=== PATIENT | male | born 1960 | race Hispanic/Latino ===

== ENCOUNTER 2018-11-16 21:13 | Emergency (ER) | payer OTHER ==
[~2018-11-16] VITALS: Ht 170.2 cm; Wt 64.9 kg
[2018-11-16 21:50] LABS: BASOPHILS # (AUTO) 0.1 (0.0-0.1); BASOPHILS % 0.4 % (0.0-1.0); EOSINOPHILS # (AUTO) 0.4 (0.0-0.4); EOSINOPHILS % 3.1 % (0.0-6.0); HEMATOCRIT 39.6 % (38.2-49.6); HEMOGLOBIN 14.2 g/dL (14.0-18.0); LYMPHOCYTES # (AUTO) 3.2 (1.0-3.2); LYMPHOCYTES % 26.9 % (18.0-39.1); MEAN CORPUSCULAR HEMOGLOBIN 33.6 pg (28-32); MEAN CORPUSCULAR HGB CONC 35.9 g/dL (31-35); MEAN CORPUSCULAR VOLUME 93.6 fL (81-99); MONOCYTES # (AUTO) 0.9 (0.2-0.8); MONOCYTES % 7.4 % (4.4-11.3); NEUTROPHILS # (AUTO) 7.3 (2.1-6.9); NEUTROPHILS % 61.9 % (38.7-80.0); PLATELET COUNT 373 x10e3/uL (140-360); RED BLOOD COUNT 4.23 x10e6/uL (4.3-5.7); RED CELL DISTRIBUTION WIDTH 12.3 % (11.7-14.4)
[2018-11-16 21:53] LABS: BILIRUBIN,URINE NEGATIVE (NEGATIVE); CLARITY,URINE CLEAR (CLEAR); COLOR,URINE YELLOW (YELLOW); KETONES,URINE 1+ (NEGATIVE); LEUKOCYTE ESTERASE ,URINE NEGATIVE (NEGATIVE); NITRITE,URINE NEGATIVE (NEGATIVE); PROTEIN,URINE DIPSTICK TRACE (NEGATIVE); URINE UROBILINOGEN 1 mg/dL (0.2 - 1)
[2018-11-16 21:55] LABS: INR 0.95; PROTHROMBIN TIME 13.2 seconds (11.9-14.5)
[2018-11-16 21:56] LABS: PARTIAL THROMBOPLASTIN TIME 35.2 seconds (23.8-35.5)
[2018-11-16 22:04] LABS: ALANINE AMINOTRANSFERASE 19 IU/L (0-55); ALBUMIN 4.2 g/dL (3.5-5.0); ALBUMIN/GLOBULIN RATIO 1.2 (0.8-2.0); ALKALINE PHOSPHATASE 84 IU/L (40-150); ANION GAP 16.9 mmol/L (8-16); BLOOD UREA NITROGEN 14 mg/dL (7-26); BUN/CREATININE RATIO 17 (6-25); CALCIUM 9.9 mg/dL (8.4-10.2); CARBON DIOXIDE 20 mmol/L (22-29); CHLORIDE 95 mmol/L (98-107); CREATININE, SERUM 0.81 mg/dL (0.72-1.25); EST GLOMERULAR FILTRATION RATE > 60 ML/MIN (60-); GLUCOSE 87 mg/dL (74-118); POTASSIUM 3.9 mmol/L (3.5-5.1); SODIUM 128 mmol/L (136-145)
[2018-11-16 22:07] LABS: BACTERIA,URINE MODERATE /HPF; EPITHELIAL CELLS,URINE RARE /LPF; WBC,URINE (MAN) 0-5 /HPF (0-5)
--- NOTE | 2018-11-16 22:39 | Diagnostic Imaging Report ---
EXAMINATION: CHEST 2 VIEWS INDICATION: Weakness, low back pain for one week ^BRONCHITIS ^[id number] ^2210 ^Y COMPARISON: None FINDINGS: PA and lateral views TUBES and LINES: None. LUNGS: Lungs are well inflated with flattening of the diaphragms suggestive of small airways disease. Spiculated right upper lobe mass measures 3.4 x 3.6 cm with central cavitation. No air-fluid level. Left lung is clear. PLEURA: No pleural effusion or pneumothorax. HEART AND MEDIASTINUM: The cardiomediastinal silhouette is unremarkable.. BONES AND SOFT TISSUES: No focal osseous lesions. Soft tissues are unremarkable. UPPER ABDOMEN: No free air under the diaphragm. IMPRESSION: Spiculated cavitary mass in the right upper lobe. This is suggestive of a neoplastic process or tuberculosis infection. Signed by: Dr. Kateryna Smith MD on 11/16/2018 10:35 PM
--- NOTE | 2018-11-16 22:39 | Diagnostic Imaging Report ---
CT BRAIN WO HISTORY: TIA COMPARISON: None. TECHNIQUE: Noncontrast axial scans were obtained from skull base to the vertex. Coronal and sagittal reconstructions obtained from the axial data. One or more of the following dose reduction techniques were used: Automated exposure control, adjustment of the mA and/or kV according to patient size, and/or utilization of iterative reconstruction technique. DISCUSSION: Scalp/Skull: Unremarkable. Brain sulci: Appropriate for patient's age. Ventricles: The body of the right lateral ventricle is slightly effaced. Otherwise, unremarkable. Extra-axial spaces: No masses or fluid collections. Parenchyma: Approximately 1.9 cm peripherally isodense, centrally hypodense mass (relative to brain parenchyma) centered in the right thalamus is associated with prominent local vasogenic edema. The edema extends into the right temporal stem and right midbrain. Similar 2.4 cm juxtacortical mass along the left superior frontal sulcus is also associated with prominent local vasogenic edema. Additional focal areas of vasogenic edema are seen in the right posterior inferior frontal gyrus (pars opercularis), right precentral gyrus, and left mesial temporal lobe. Mass effect is local without significant brain herniation. Otherwise, no acute hyperdense hemorrhage, or large vascular territory acute infarct. Dural sinuses: No abnormal densities. Sellar/Suprasellar region: Intact. Skull base: Intact. Incidental findings: Mild carotid siphon calcifications are present. IMPRESSION: 1. 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 Additional, associated areas of focal vasogenic edema in the right frontal lobe and left mesial temporal lobe. Differential considerations include metastatic disease in the appropriate clinical setting or multifocal infectious process (i.e. septic emboli with abscesses). 2. Mass effect is local without significant brain herniation. Further evaluation with brain MRI (without and with contrast) is recommended. Signed by: Dr. Hair Parham M.D. on 11/16/2018 10:35 PM
[2018-11-16] MEDS ORDERED: DEXAMETHASONE SOD PHOS 10 MG/1 ML VIAL ONE (22:42)
[2018-11-16] MEDS ORDERED: DEXAMETHASONE SOD PHOS 10 MG/1 ML VIAL IV STA (22:50)
--- NOTE | 2018-11-16 22:50 | NUR ---
TRANSFER INITIATED TO COUNT INCLUDES THE [facility]
[2018-11-16] MEDS ORDERED: DICLOFENAC SODI75 MG PO (22:52)
[2018-11-16] MEDS ORDERED: ATORVASTATIN CA20 MG PO (22:52)
[2018-11-16] MEDS ORDERED: FOLIC ACID1 MG PO (22:52)
[2018-11-16] MEDS ORDERED: IRBESARTAN300 MG PO (22:52)
[2018-11-16] MEDS ORDERED: SUCRALFATE1 GM PO (22:52)
[2018-11-16] MEDS ORDERED: HYDROCHLOROTHIA25 MG PO (22:53)
[2018-11-16] MEDS ORDERED: ASPIR 8181 MG PO (22:53)
[2018-11-16] MEDS ORDERED: ESIDRIX25 MG PO (22:56)
[2018-11-16 23:35] VITALS: BP 133/81
== END 2018-11-17 00:25 | disposition other institution (70) ==
LOC: ER 21:13
DX: R22.0 Localized swelling, mass and lump, head (principal); C34.11 Malignant neoplasm of upper lobe, right bronchus or lung; K52.9 Noninfective gastroenteritis and colitis, unspecified; E87.1 Hypo-osmolality and hyponatremia; M54.5 Low back pain; I10 Essential (primary) hypertension; F17.210 Nicotine dependence, cigarettes, uncomplicated
CPT/HCPCS: 36415; 70450; 71046; 80053; 81001; 85025; 85610; 85730; 99284; J1100

== ENCOUNTER 2018-12-06 11:01 | Emergency (ER) | payer OTHER ==
[~2018-12-06] VITALS: Ht 170.2 cm; Wt 64.9 kg
[~2018-12-06 11:01] MED LIST: ASPIR 8181 MG PO; ATORVASTATIN CA20 MG PO; DICLOFENAC SODI75 MG PO; ESIDRIX25 MG PO; FOLIC ACID1 MG PO; HYDROCHLOROTHIA25 MG PO; IRBESARTAN300 MG PO; SUCRALFATE1 GM PO
--- OUTSIDE RECORDS SUMMARY | 2018-12-06 11:04 | XMS REPORT | Clinical Summary ---
Author Author PHYLICIA [facility] Address Unknown Phone Unavailable Care Team Providers Care Clerk General Name Role Phone Zach Preston PCP Allergies No Known Allergies Medications End Date Status Medication Sig Dispensed Refills Start Date Active irbesartan (AVAPRO) 300 Take 300 mg 0 MG tablet by mouth daily. Active omeprazole (PRILOSEC) 20 Take 20 mg by 0 MG capsule mouth daily. Active folic acid (FOLVITE) 800 Take 400 mcg 0 MCG tablet by mouth daily. Active atorvastatin (LIPITOR) 20 Take 20 mg by 0 MG tablet mouth daily. Active aspirin 81 MG EC tablet Take 81 mg by 0 mouth daily. Active multivit-min/FA/lycopen/l Take 1 tablet 0 utein (CENTRUM SILVER MEN by mouth ORAL) daily. 12/12/2018 Active baclofen 5 mg Tab Take 5 mg by 42 tablet 0 mouth 3 9 (three) times daily as needed (hiccups) for up to 14 days. 12/19/2018 Active dexamethasone (DECADRON) Take 1 tablet 84 tablet 0 4 MG tablet (4 mg total) 9 by mouth every 6 (six) hours for 21 days. 12/29/2018 Active pantoprazole (PROTONIX) Take 1 tablet 30 tablet 0 40 MG tablet (40 mg total) 9 by mouth every morning before breakfast for 30 days. Active Problems Problem Noted Date Brain mass 11/17/2018 Encounters Care Team Description Date Type Specialty Jorge King MD Arrived 12/02/2018 Procedure visit Radiation Oncology Fiordaliza Kemp CRNA 11/26/2018 Anesthesia Event Leida Mcintosh MD BRONCHOSCOPY,TRANSBRONCHIAL NEEDLE ASPIRATION BIOPSY 11/26/2018 Surgery Sunday [place], MURTAZA 11/22/2018 Anesthesia Event Leida Mcintosh MD BRONCHOSCOPY,ENDOBRONCHIAL ULTRASOUND (EBUS) TRANSTRACH/ TRANSBRONCH SAMPLING 11/22/2018 Surgery Trung Duvall, MURTAZA 11/18/2018 Anesthesia Event Virtual, Surgeon PROCEDURE DONE OUTSIDE OR 11/18/2018 Surgery Jonny Gottlieb MD Bhattarai, Alok, MD Tirukkovalluri, Srilakshmi, MD Adio, Julio Martinez MD Brain mass; Cerebral edema (HCC); Encephalopathy; Lung mass; Centrilobular emphysema (HCC); Smoker; Non-small cell lung cancer with metastasis (HCC); Non-small cell lung cancer, unspecified laterality (HCC); Goals of care, counseling/discussion 11/17/2018 [facility] General Internal Medicine - Encounter 11/28/2018 11/17/2018 Travel after 12/05/2017 Social History Date Tobacco Use Types Packs/Day Years Used Current Every Day Smoker Cigarettes 2 Smokeless Tobacco: Never Used Alcohol Use Drinks/Week oz/Week Comments Yes 8 Cans of 4.8 beer Alcohol Habits Answer Date Recorded How often do you have a drink containing alcohol? 4 or more times a week 11/17/2018 How many drinks containing alcohol do you have on 7 to 9 11/17/2018 a typical day when you are drinking? How often do you have six or more drinks on one Daily or almost daily 11/17/2018 occasion? Sex Assigned at Date Recorded Not on file Industry Job Start Date Occupation Not on file Not on file Not on file Travel End Travel History Travel Start No recent travel history available. Last Filed Vital Signs Time Taken Vital Sign Reading 11/28/2018 4:14 PM CDT Blood Pressure 115/69 11/28/2018 4:14 PM CDT Pulse 61 11/28/2018 4:14 PM CDT Temperature 36.3 C (97.3 F) 11/28/2018 4:14 PM CDT Respiratory Rate 18 11/28/2018 4:14 PM CDT Oxygen Saturation 96% - Inhaled Oxygen - Concentration 11/17/2018 2:00 AM CDT Weight 62 kg (136 lb 11 oz) 11/17/2018 2:00 AM CDT Height 170 cm (5' 6.93") 11/17/2018 2:00 AM CDT Body Mass Index 21.45 Plan of Treatment Care Team Description Date Type Specialty Jorge King MD [address], [place] [id number] 12/16/2018 Procedure visit Radiation Oncology Jorge King MD [address] [place] [address] 01/16/2019 Procedure visit Radiation Oncology Procedures Comments Procedure Name Priority Date/Time Associated Diagnosis RHYTHM STRIP - SCAN 11/29/2018 11:11 AM CDT POCT-GLUCOSE METER Routine 11/28/2018 1:18 PM CDT POCT-GLUCOSE METER Routine 11/28/2018 7:53 AM CDT CBC W/PLT COUNT & AUTO Routine 11/28/2018 DIFFERENTIAL 5:45 AM CDT COCCIDIOIDES ANTIBODIES Routine 11/28/2018 5:45 AM CDT BASIC METABOLIC PANEL (7) STAT 11/28/2018 5:45 AM CDT CBC W/PLT COUNT & AUTO Routine 11/28/2018 DIFFERENTIAL 5:45 AM CDT POCT-GLUCOSE METER Routine 11/27/2018 9:00 PM CDT TRANSFUSION SERVICE 11/27/2018 REPORT - SCAN 5:55 PM CDT POCT-GLUCOSE METER Routine 11/27/2018 5:34 PM CDT POCT-GLUCOSE METER Routine 11/27/2018 12:00 PM CDT POCT-GLUCOSE METER Routine 11/27/2018 8:34 AM CDT BASIC METABOLIC PANEL (7) STAT 11/27/2018 6:18 AM CDT CBC W/PLT COUNT & AUTO Routine 11/27/2018 DIFFERENTIAL 6:17 AM CDT CBC W/PLT COUNT & AUTO Routine 11/27/2018 DIFFERENTIAL 6:17 AM CDT POCT-GLUCOSE METER Routine 11/26/2018 9:24 PM CDT POCT-GLUCOSE METER Routine 11/26/2018 3:59 PM CDT XR CHEST 1 VIEW STAT 11/26/2018 PORTABLE/BEDSIDE 2:44 PM CDT BLASTOMYCES ANTIBODY Routine 11/26/2018 2:21 PM CDT ASPERGILLUS GALACTOMANNAN Routine 11/26/2018 ANTIGEN 2:21 PM CDT POCT-GLUCOSE METER Routine 11/26/2018 2:06 PM CDT REPORT OF PROCEDURE - 11/26/2018 ENDOSCOPY URL 12:37 PM CDT CYTOLOGY REQUEST Routine 11/26/2018 12:29 PM CDT CYTOLOGY AP Routine 11/26/2018 12:29 PM CDT AFB CULTURE + SMEAR Routine 11/26/2018 12:28 PM CDT SURGICALLY OBTAINED Routine 11/26/2018 CULTURE + GRAM STAIN 12:28 PM CDT FUNGUS CULTURE + SMEAR Routine 11/26/2018 12:28 PM CDT FINE NEEDLE ASPIRATE Routine 11/26/2018 (FNA) REQUEST 12:28 PM CDT FINE NEEDLE ASPIRATION BY AP Routine 11/26/2018 CLINICIAN 12:28 PM CDT FL TEXTILE MACHINE OPERATOR IN OR 30 Routine 11/26/2018 MINUTE INCREMENTS 12:28 PM CDT AFB CULTURE + SMEAR Routine 11/26/2018 12:27 PM CDT SURGICALLY OBTAINED Routine 11/26/2018 CULTURE + GRAM STAIN 12:27 PM CDT FUNGUS CULTURE + SMEAR Routine 11/26/2018 12:27 PM CDT TISSUE EXAM AP Routine 11/26/2018 12:27 PM CDT BRONCHOSCOPY,ENDOBRONCHIA 11/26/2018 Lung mass L ULTRASOUND (EBUS) 10:58 AM CDT DIAGNOSTIC/ THERAPEUTIC Special Needs REQ: 99 12 INCH C-ARM BRONCHOSCOPY,SUPER D 11/26/2018 Lung mass 10:58 AM CDT Special Needs REQ: 99 12 INCH C-ARM BRONCHOSCOPY,BRONCHIAL 11/26/2018 Lung mass ALVEOLAR LAVAGE 10:58 AM CDT Special Needs REQ: 99 12 INCH C-ARM BRONCHOSCOPY,TRANSBRONCHI 11/26/2018 Lung mass AL LUNG BIOPSY 10:58 AM CDT Special Needs REQ: 99 12 INCH C-ARM BRONCHOSCOPY,TRANSBRONCHI 11/26/2018 Lung mass AL NEEDLE ASPIRATION 10:58 AM CDT BIOPSY Special Needs REQ: 99 12 INCH C-ARM MISCELLANEOUS LAB ORDER Routine 11/26/2018 8:30 AM CDT POCT-GLUCOSE METER Routine 11/26/2018 8:22 AM CDT ABORH, MANUAL STAT 11/26/2018 5:59 AM CDT CBC W/PLT COUNT & AUTO STAT 11/26/2018 DIFFERENTIAL 5:13 AM CDT TYPE AND SCREEN, Routine 11/26/2018 AUTOMATED 5:13 AM CDT APTT STAT 11/26/2018 5:13 AM CDT PROTHROMBIN TIME/INR STAT 11/26/2018 5:13 AM CDT CBC W/PLT COUNT & AUTO STAT 11/26/2018 DIFFERENTIAL 5:13 AM CDT COMPREHENSIVE METABOLIC STAT 11/26/2018 PANEL 5:13 AM CDT BASIC METABOLIC PANEL (7) STAT 11/26/2018 5:13 AM CDT POCT-GLUCOSE METER Routine 11/25/2018 9:36 PM CDT POCT-GLUCOSE METER Routine 11/25/2018 5:45 PM CDT POCT-GLUCOSE METER Routine 11/25/2018 11:48 AM CDT POCT-GLUCOSE METER Routine 11/25/2018 8:33 AM CDT CBC W/PLT COUNT & AUTO Routine 11/25/2018 DIFFERENTIAL 5:34 AM CDT BASIC METABOLIC PANEL (7) STAT 11/25/2018 5:34 AM CDT CBC W/PLT COUNT & AUTO Routine 11/25/2018 DIFFERENTIAL 5:34 AM CDT POCT-GLUCOSE METER Routine 11/24/2018 8:29 PM CDT POCT-GLUCOSE METER Routine 11/24/2018 3:13 PM CDT POCT-GLUCOSE METER Routine 11/24/2018 9:08 AM CDT CBC W/PLT COUNT & AUTO Routine 11/24/2018 DIFFERENTIAL 5:54 AM CDT BASIC METABOLIC PANEL (7) STAT 11/24/2018 5:54 AM CDT CBC W/PLT COUNT & AUTO Routine 11/24/2018 DIFFERENTIAL 5:54 AM CDT POCT-GLUCOSE METER Routine 11/23/2018 9:09 PM CDT POCT-GLUCOSE METER Routine 11/23/2018 5:14 PM CDT CBC W/PLT COUNT & AUTO Routine 11/23/2018 DIFFERENTIAL 2:36 PM CDT BASIC METABOLIC PANEL (7) STAT 11/23/2018 2:36 PM CDT CBC W/PLT COUNT & AUTO Routine 11/23/2018 DIFFERENTIAL 2:36 PM CDT POCT-GLUCOSE METER Routine 11/23/2018 11:49 AM CDT POCT-GLUCOSE METER Routine 11/23/2018 8:02 AM CDT POCT-GLUCOSE METER Routine 11/22/2018 9:[address] CHEST WITHOUT IV BRANT 11/22/2018 CONTRAST 6:03 PM CDT SPIN/CONCENTRATION CHARGE Routine 11/22/2018 12:58 PM CDT AFB CULTURE + SMEAR Routine 11/22/2018 12:58 PM CDT REPORT OF PROCEDURE - 11/22/2018 ENDOSCOPY URL 12:53 PM CDT POCT-GLUCOSE METER Routine 11/22/2018 10:24 AM CDT EBUS FNA REQUEST Routine 11/22/2018 8:20 AM CDT FINE NEEDLE ASPIRATE BY AP Routine 11/22/2018 EBUS 8:20 AM CDT AFB CULTURE + SMEAR Routine 11/22/2018 8:04 AM CDT BRONCHIAL CULTURE + GRAM Routine 11/22/2018 STAIN 8:04 AM CDT FUNGUS CULTURE + SMEAR Routine 11/22/2018 8:04 AM CDT CYTOLOGY REQUEST Routine 11/22/2018 8:04 AM CDT SPIN/CONCENTRATION CHARGE Routine 11/22/2018 8:04 AM CDT CYTOLOGY AP Routine 11/22/2018 8:04 AM CDT EBUS FNA REQUEST Routine 11/22/2018 7:49 AM CDT FINE NEEDLE ASPIRATE BY AP Routine 11/22/2018 EBUS 7:49 AM CDT BRONCHOSCOPY,BRONCHIAL 11/22/2018 Lung mass ALVEOLAR LAVAGE 6:10 AM CDT Special Needs REQ 7:00AM IN ENDO BRONCHOSCOPY,ENDOBRONCHIA 11/22/2018 Lung mass L ULTRASOUND (EBUS) 6:10 AM CDT TRANSTRACH/ TRANSBRONCH SAMPLING Special Needs REQ 7:00AM IN ENDO POCT-GLUCOSE METER Routine 11/21/2018 5:36 PM CDT POCT-GLUCOSE METER Routine 11/21/2018 12:26 PM CDT POCT-GLUCOSE METER Routine 11/21/2018 9:11 AM CDT CBC W/PLT COUNT & AUTO Routine 11/21/2018 DIFFERENTIAL 4:28 AM CDT BASIC METABOLIC PANEL (7) Routine 11/21/2018 4:28 AM CDT CBC W/PLT COUNT & AUTO Routine 11/21/2018 DIFFERENTIAL 4:28 AM CDT POCT-GLUCOSE METER Routine 11/20/2018 9:43 PM CDT POCT-GLUCOSE METER Routine 11/20/2018 5:15 PM CDT POCT-GLUCOSE METER Routine 11/20/2018 11:36 AM CDT POCT-GLUCOSE METER Routine 11/20/2018 8:03 AM CDT CBC W/PLT COUNT & AUTO Routine 11/20/2018 DIFFERENTIAL 4:55 AM CDT PHOSPHORUS Routine 11/20/2018 4:55 AM CDT MAGNESIUM Routine 11/20/2018 4:55 AM CDT PT/APTT Routine 11/20/2018 4:55 AM CDT BASIC METABOLIC PANEL (7) Routine 11/20/2018 4:55 AM CDT CBC W/PLT COUNT & AUTO Routine 11/20/2018 DIFFERENTIAL 4:55 AM CDT SPIN/CONCENTRATION CHARGE Routine 11/20/2018 1:10 AM CDT AFB CULTURE + SMEAR Routine 11/20/2018 1:10 AM CDT POCT-GLUCOSE METER Routine 11/19/2018 9:55 PM CDT POCT-GLUCOSE METER Routine 11/19/2018 5:32 PM CDT NM BONE SCAN WHOLE BODY Routine 11/19/2018 4:43 PM CDT POCT-GLUCOSE METER Routine 11/19/2018 11:08 AM CDT POCT-GLUCOSE METER Routine 11/19/2018 6:08 AM CDT T SPOT TB Routine 11/19/2018 3:53 AM CDT CBC W/PLT COUNT & AUTO Routine 11/19/2018 DIFFERENTIAL 3:52 AM CDT PHOSPHORUS Routine 11/19/2018 3:52 AM CDT MAGNESIUM Routine 11/19/2018 3:52 AM CDT BASIC METABOLIC PANEL (7) Routine 11/19/2018 3:52 AM CDT CBC W/PLT COUNT & AUTO Routine 11/19/2018 DIFFERENTIAL 3:52 AM CDT HISTOPLASMA ANTIGEN, Routine 11/18/2018 URINE 10:30 PM CDT POCT-GLUCOSE METER Routine 11/18/2018 10:17 PM CDT HISTOPLASMA AB BY Routine 11/18/2018 COMPLEMENT FIXATION 6:37 PM CDT HIV-1 ANTIGEN WITH Routine 11/18/2018 HIV-1/2 ANTIBODY 6:37 PM CDT POCT-GLUCOSE METER Routine 11/18/2018 6:35 PM CDT MR BRAIN WITHOUT & WITH Routine 11/18/2018 IV CONTRAST 5:55 PM CDT PROCEDURE DONE OUTSIDE OR 11/18/2018 Neoplasm of head 3:00 PM CDT POCT-GLUCOSE METER Routine 11/18/2018 12:03 PM CDT EEG AWAKE AND DROWSY Routine 11/18/2018 8:54 AM CDT POCT-GLUCOSE METER Routine 11/18/2018 6:34 AM CDT CBC W/PLT COUNT & AUTO Routine 11/18/2018 DIFFERENTIAL 3:29 AM CDT BASIC METABOLIC PANEL (7) Routine 11/18/2018 3:29 AM CDT CBC W/PLT COUNT & AUTO Routine 11/18/2018 DIFFERENTIAL 3:29 AM CDT POCT-GLUCOSE METER Routine 11/17/2018 10:12 PM CDT POCT-GLUCOSE METER Routine 11/17/2018 4:[address] ABDOMEN/PELVIS WITH IV Routine 11/17/2018 CONTRAST 3:[address] CHEST WITH IV CONTRAST Routine 11/17/2018 3:01 PM CDT POCT-GLUCOSE METER Routine 11/17/2018 12:30 PM CDT CBC W/PLT COUNT & AUTO Routine 11/17/2018 DIFFERENTIAL 4:06 AM CDT PHOSPHORUS Routine 11/17/2018 4:06 AM CDT MAGNESIUM Routine 11/17/2018 4:06 AM CDT HEPATIC FUNCTION PANEL Routine 11/17/2018 4:06 AM CDT BASIC METABOLIC PANEL (7) Routine 11/17/2018 4:06 AM CDT CBC W/PLT COUNT & AUTO Routine 11/17/2018 DIFFERENTIAL 4:06 AM CDT TROPONIN I Routine 11/17/2018 4:06 AM CDT after 12/05/2017 Results * RHYTHM STRIP - SCAN (11/29/2018 11:11 AM CDT) Narrative Performed At * POC-Glucose meter (11/28/2018 1:18 PM CDT) Only the most recent of 41 results within the time period is included. POC-Glucose Meter 105Comment: TESTED AT [facility] 70 - 110 mg/dL [facility] [address] [facility] [address] [facility] Specimen Blood Performing Organization Address City/State/Zipcode Phone Number [facility] [address] [place], [place] [phone] [facility] * CBC with platelet count + automated diff (11/28/2018 5:45 AM CDT) Only the most recent of 11 results within the time period is included. WBC 12.6 (H) 3.5 - 10.5 K/L [facility] RBC 3.66 (L) 4.63 - 6.08 M/L [facility] Hemoglobin 12.1 (L) 13.7 - 17.5 GM/DL [facility] Hematocrit 35.5 (L) 40.1 - 51.0 % [facility] MCV 97.0 (H) 79.0 - 92.2 fL [facility] MCH 33.1 (H) 25.7 - 32.2 pg [facility] MCHC 34.1 32.3 - 36.5 GM/DL [facility] RDW 12.2 11.6 - 14.4 % [facility] Platelets 262 150 - 450 K/CU MM [facility] MPV 9.0 (L) 9.4 - 12.4 fL [facility] nRBC 0 0 - 0 /100 WBC [facility] % Neutros 86 % [facility] % Lymphs 9 % [facility] % Monos 4 % [facility] % Eos 0 % [facility] % Baso 0 % [facility] # Neutros 10.84 (H) 1.78 - 5.38 K/L [facility] # Lymphs 1.13 (L) 1.32 - 3.57 K/L [facility] # Monos 0.48 0.30 - 0.82 K/L [facility] # Eos 0.00 (L) 0.04 - 0.54 K/L [facility] # Baso 0.01 0.01 - 0.08 K/L [facility] Immature 1 0 - 1 % [facility] Granulocytes-[facility] Specimen Blood Performing Organization Address City/[facility] Cent[facility]ode Phone Number [facility] [address] [place] [address] [facility] * Coccidioides antibodies (11/28/2018 5:45 AM CDT) Coccidioides Ab,Id NEGATIVE [facility] Comment: INCORPORATED REFERENCE RANGE:NEGATIVE INTERPRETIVE CRITERIA: NEGATIVE:Antibody Not Detected POSITIVE:Antibody Detected The immunodiffusion (ID) procedure correlates both in sensitivity and clinical utility with the CF test. The ID test, which detects IgG directed to the "F" antigen, becomes positive within 4 weeks after infection and remains positive throughout clinically active disease. It is most useful in confirming the specificity of low CF titers, where line(s) of identity are formed with reference antisera. Positive ID reactions are diagnostic for coccidioidomycosis and usually indicate active or recent disease and remain detectable for up to 1 year thereafter. Specimen Blood Narrative Performed At Performing Lab [facility] *[facility] [employer] [facility] [address] [place] [address] Vlad Cazares MD Performing Organization Address City/State/Zipcode Phone Number [facility], [address] [facility] [address] * Basic Metabolic Panel (11/28/2018 5:45 AM CDT) Only the most recent of 11 results within the time period is included. Sodium 132 (L) 136 - 145 meq/L [facility] Potassium 3.8 3.5 - 5.1 meq/L [facility] Chloride 102 98 - 107 meq/L [facility] CO2 23 22 - 29 meq/L [facility] BUN 16 7 - 21 mg/dL [facility] Creatinine 0.62 0.57 - 1.25 mg/dL [facility] Glucose 125 (H) 70 - 105 mg/dL [facility] Calcium 8.4 8.4 - 10.2 mg/dL [facility] EGFR Comment: INSUFFICIENT CLINICAL mL/min/1.73 sq m [facility] DATA TO CALCULATE ESTIMATED [facility] GFR. Specimen Blood Performing Organization Address City/State/Zipcode Phone Number [facility] [address] [place] [address] [facility] * TRANSFUSION SERVICE REPORT - SCAN (11/27/2018 5:55 PM CDT) Narrative Performed At * XR chest 1 view portable / bedside (11/26/2018 2:44 PM CDT) Specimen Narrative Performed At FINAL REPORT [facility] TECHNIQUE: Frontal chest radiograph dated 11/26/2018. CLINICAL HISTORY: Status post right upper lobe transbronchial biopsy COMPARISON STUDY: Chest CT dated 11/22/2018 IMPRESSION: Right upper lobe mass is again visualized. Lungs are otherwise clear. No pleural effusion or pneumothorax. Cardiomediastinal silhouette is normal in size. No pulmonary edema. Bones are osteopenic. Signed: Daniel Roger MD Report Verified Date/Time:11/26/2018 15:04:06 Reading Location: [facility] Radiology Reading Room Procedure Note Interface, External Ris In - 11/26/2018 3:06 PM CDT FINAL REPORT TECHNIQUE: Frontal chest radiograph dated 11/26/2018. CLINICAL HISTORY: Status post right upper lobe transbronchial biopsy COMPARISON STUDY: Chest CT dated 11/22/2018 IMPRESSION: Right upper lobe mass is again visualized. Lungs are otherwise clear. No pleural effusion or pneumothorax. Cardiomediastinal silhouette is normal in size. No pulmonary edema. Bones are osteopenic. Signed: Daniel Roger MD Report Verified Date/Time: 11/26/2018 15:04:06 Reading Location: [facility] Radiology Reading Room Performing Organization Address City/[facility] Centercode Phone Number [facility] * Blastomyces antibody (11/26/2018 2:21 PM CDT) Blastomyces Ab,Id NEGATIVE [facility] Comment: INCORPORATED REFERENCE RANGE: NEGATIVE INTERPRETIVE CRITERIA: NEGATIVE: Antibody Not Detected POSITIVE: Antibody Detected A positive result is diagnostic of active or recent blastomycosis and is found in approximately 80% of proven cases of blastomycosis. Specimen Blood Narrative Performed At Performing Lab [facility] *[facility] [employer] [facility] [id number] [place] [id number] Vlad Cazares MD Performing Organization Address [facility] Centercola Phone Number [facility] [place], [address] [facility] [address] * Aspergillus galactomannan antigen (11/26/2018 2:21 PM CDT) Aspergillus Index Value <0.50 [facility] Aspergillus Antigen NOT DETECTED [facility] Comment: INCORPORATED REFERENCE RANGE: <0.50, NOT DETECTED A negative result does not exclude invasive aspergillosis. Follow-up testing may be indicated for high-risk patients. Specimen Blood Narrative Performed At Performing Lab [facility] *[employer] [facility] [address] [place] [address] Vlad Cazares MD Performing Organization Address [facility] Centercode Phone Number [facility] [place], [address] [facility] [address] * REPORT OF PROCEDURE - ENDOSCOPY URL (11/26/2018 12:37 PM CDT) Narrative Performed At * CYTOLOGY REQUEST (11/26/2018 12:29 PM CDT) Only the most recent of 2 results within the time period is included. Cytology See Separate Report [facility] Specimen BAL Performing Organization Address City/State/Zipcode Phone Number [address] [address] [facility] * Cytology (11/26/2018 12:29 PM CDT) Only the most recent of 2 results within the time period is included. Case Report Medical Cytology [facility] Report [facility] Case: [id number] Authorizing Provider:Leida Mcintosh MDCollected: 11/26/2018 1229 [facility] Received: 11/26/2018 1305 SERVICES Pathologist: Ubaldo Ortiz MD Specimen:Lung, Right Upper Lobe, BAL DIAGNOSIS LUNG, RIGHT UPPER LOBE, BAL [facility] (CYTOSPINS): [facility] - NON SMALL CELL CARCINOMA, POORLY DIFFERENTIATED, WITH DEGENERATIVE FEATURES Signing Pathologist Direct Phone Line: [phone] COMMENT Please also see surgical [facility] pathology report [id number] and [facility] cytopathology report [id number]. CPT Code(s) 559[address] [facility] CLINICAL DATA Lung mass [facility] SPECIMEN SOURCE LUNG, RIGHT UPPER LOBE BAL [facility] GROSS DESCRIPTION Prepared 4 cytospins from 15 [facility] ml blood-tinged fluid [facility] Collected: [id number] Received: [id number] MICROSCOPIC DESCRIPTION Few degenerating atypical [facility] cells consistent with [facility] non-small cell carcinoma are present. Benign bronchial epithelial cells and macrophages are present in background. STATEMENT OF ADEQUACY Satisfactory [facility] Gross assessment was [facility] performed at [place], Department of [facility] Pathology, [address] [place] [address], Technical component was [facility] performed at [place], Department of [facility] Pathology, [address] [place] [address], Professional component [facility] was performed at Center, Department of [facility] Pathology, [address] [place] [address], [place] [address], Specimen BAL Narrative Performed At Performing Organization Address City/State/Zipcode Phone Number [facility] [address] [place] [phone] [facility] * Surgically obtained culture + gram stain (11/26/2018 12:28 PM CDT) Only the most recent of 2 results within the time period is included. Result <1+ Viridans Streptococcus (A) [facility] Gram Stain Result No WBCs [facility] Gram Stain Result No organisms seen [facility] Specimen Fine Needle Aspirate Performing Organization Address City/[facility] Centercode Phone Number [address] [address] [facility] * FINE NEEDLE ASPIRATE (FNA) REQUEST (11/26/2018 12:28 PM CDT) Cytology See Separate Report [facility] Specimen Fine Needle Aspirate Performing Organization Address City/[facility] Centercode Phone Number [facility] [address] [place] [address] [phone] [facility] * [place] trading manager in or 30 minute increments (11/26/2018 12:28 PM CDT) Specimen Narrative Performed At FLUOROSCOPIC UNIT UTILIZED-NO INTERPRETATION REQUESTED. [facility] Procedure Note Interface, External Ris In - 12/02/2018 5:13 PM CDT FLUOROSCOPIC UNIT UTILIZED-NO INTERPRETATION REQUESTED. Performing Organization Address City/State/[facility] [place] [facility] Centercode Phone Number [facility] * Fine Needle Aspirate by Clinician (11/26/2018 12:28 PM CDT) Case Report Medical Cytology [facility] Case: [id number] Authorizing Provider:Leida Mcintosh MDCollected: 11/26/2018 1228 [facility] Received: 11/26/2018 1305 SERVICES Pathologist: Ubaldo Ortiz MD Specimen:Lung, Right Upper Lobe DIAGNOSIS LUNG, RIGHT UPPER LOBE, FNA BY [facility] CLINICIAN (CYTOSPINS AND CELL [facility] BLOCK OF ASPIRATE): - NON SMALL CELL CARCINOMA, POORLY DIFFERENTIATED Signing Pathologist Direct Phone Line: [phone] COMMENT Please also see surgical [facility] pathology report [id number] and [facility] cytopathology report [id number]. CPT Code(s) 72034, 95467 [facility] CLINICAL DATA Lung mass [facility] SPECIMEN SOURCE LUNG, RIGHT UPPER LOBE FNA [facility] GROSS DESCRIPTION Prepared cell block(A2) and 2 [facility] cytospins from 42 ml cytorich [facility] red fixative sample Collected: [id number] Received: [id number] SPECIAL STUDIES The interpretation of this [facility] case included the use of [facility] immunohistochemistry or special stains. Control Slides Examined: In-house known positive controls were evaluated along with the test tissue. These control slides run alongside of the patients sample show appropriate staining. Internal positive and negative controls when available are evaluated Immunohistochemistry technical testing was performed at [facility], Pathology Laboratory where it was developed and its performance characteristics were determined. It has not been cleared or approved by the U.S. Food and Drug Administration. The FDA has determined that such clearance or approval is not necessary. The test is used for clinical purposes. It should not be regarded as investigational or for research. This laboratory is certified under the Clinical Laboratory Improvement Amendments of 1988 (CLIA-88) as qualified to perform high complexity clinical laboratory testing. Gross assessment was [facility] performed at [place], Department of [facility] Pathology, [address] [place] [address], Technical component was [facility] performed at [place], Department of [facility] Pathology, [address] [place] [address], [facility] was performed at Center, Department of [facility] Pathology, [address] [place] [address], Specimen Fine Needle Aspirate Narrative Performed At Performing Organization Address City/State/Zipcode Phone Number [address] [address] MEDICAL CENTER * Tissue Exam (11/26/2018 12:27 PM CDT) Case Report Surgical Pathology [facility] Report [facility] Case: [id number] Authorizing Provider:Leida Mcintosh MDCollected: 11/26/2018 1227 [facility] Received: 11/26/2018 1307 SERVICES Pathologist: Nasra Plummer MD Specimen:Lung, Right Upper Lobe, TBBX, process in cytology for colloidion bag, reflex genetic markers DIAGNOSIS A. LUNG, RIGHT UPPER LOBE, [facility] TRANSBRONCHIAL BIOPSY: [facility] - ADENOCARCINOMA, CONSISTENT WITH PULMONARY PRIMARY (SEE COMMENT) Signing Pathologist Direct Phone Line: [phone] COMMENT A. Immunostain for TTF1 is [facility] positive and p40 is negative, [facility] supporting the above diagnosis. CPT Code(s) 16476 [facility] [address] [facility] [address] CLINICAL HISTORY Lung mass [facility] SPECIMEN SOURCE A. Right upper lobe lung [facility] transbronchial biopsy [facility] GROSS DESCRIPTION Specimen A: The specimen is [facility] received in a formalin-filled [facility] container and labeled with the patient's information and labeled "Lung, Right Upper lobe biopsy" and consists of five red 0.1 cm fragments, three white/miles 0.1 cm fragments; one white/red ragged fragment; one red/white/miles fragment measuring 0.4 cm; one white/almonte 0.2 cm fragment; one 0.2 cm white ragged fragment; one 0.1 cm white/red fragment; one 0.2 cm red ragged fragment and numerous minute red/white fragments, submitted entirely A1 in a collodion bag. MICROSCOPIC DESCRIPTION Performed. [facility] SPECIAL STUDIES The interpretation of this [facility] case included the use of [facility] immunohistochemistry or special stains. Control Slides Examined: In-house known positive controls were evaluated along with the test tissue. These control slides run alongside of the patients sample show appropriate staining. Internal positive and negative controls when available are evaluated Immunohistochemistry technical testing was performed at [facility], Pathology Laboratory where it was developed and its performance characteristics were determined. It has not been cleared or approved by the U.S. Food and Drug Administration. The FDA has determined that such clearance or approval is not necessary. The test is used for clinical purposes. It should not be regarded as investigational or for research. This laboratory is certified under the Clinical Laboratory Improvement Amendments of 1988 (CLIA-88) as qualified to perform high complexity clinical laboratory testing. Gross assessment was [facility] performed at [place], [facility] Pathology, [address] [place] [address], Technical component was [facility] performed at [place], [facility] Pathology, [address] [place] [address], Professional component [facility] was performed at [place], [facility] Pathology, [address] [place] [address], Specimen Tissue Narrative Performed At Performing Organization Address City/State/Zipcode Phone Number [address] [address] [facility] * AFB, Baterial, Fungi pcr (11/26/2018 8:30 AM CDT) Scan Result [facility] Specimen Tissue Narrative Performed At Performing Organization Address City/State/Zipcode Phone Number [facility] [id number] [place] [address] * ABORH, manual (11/26/2018 5:59 AM CDT) ABO Grouping O [facility] Rh Factor POS [facility] Specimen Blood Performing Organization Address City/[facility] [place] [facility] Cent[facility] Phone Number [address] [address] [facility] * Type and screen, automated (11/26/2018 5:13 AM CDT) ABO/RH AUTOMATED (BEAKER) O POSITIVE [facility] Ab Scrn NEGATIVE [facility] Specimen Blood Performing Organization Address [facility] Phone Number [address] [address] [facility] * aPTT (11/26/2018 5:13 AM CDT) PTT 30.8 22.5 - 36.0 seconds [facility] Specimen Blood Performing Organization Address City/[facility] [place] [facility] Centercode Phone Number [address] [address] [phone] [place] [address] * Prothrombin time/INR (11/26/2018 5:13 AM CDT) Protime 13.9 11.9 - 14.2 seconds [facility] INR 1.1 <=5.9 [facility] Specimen Blood Narrative Performed At Effective 11/13/2018: PT Reference Range Change [facility] New: 11.9-14.2Previous: 11.7-14.7 [facility] RECOMMENDED COUMADIN/WARFARIN INR THERAPY RANGES STANDARD DOSE: 2.0-3.0Includes: PROPHYLAXIS for venous thrombosis, systemic embolization; TREATMENT for venous thrombosis and/or pulmonary embolus. HIGH RISK: Target INR is 2.5-3.5 for patients wiht mechanical heart valves. Performing Organization Address City/[facility] Phone Number [address] [address] [phone] * Comprehensive metabolic panel (11/26/2018 5:13 AM CDT) Protein, Total 5.6 (L) 6.0 - 8.3 gm/dL [facility] Albumin 3.3 (L) 3.5 - 5.0 g/dL [facility] Alkaline Phosphatase 55 40 - 150 U/L [facility] Total Bilirubin 0.6 0.2 - 1.2 mg/dL [facility] Sodium 134 (L) 136 - 145 meq/L [facility] Potassium 3.9 3.5 - 5.1 meq/L [facility] Chloride 104 98 - 107 meq/L [facility] CO2 25 22 - 29 meq/L [facility] BUN 24 (H) 7 - 21 mg/dL [facility] Creatinine 0.64 0.57 - 1.25 mg/dL [facility] Glucose 111 (H) 70 - 105 mg/dL [facility] Calcium 8.2 (L) 8.4 - 10.2 mg/dL [facility] AST 11 5 - 34 U/L [facility] ALT 21 6 - 55 U/L [facility] EGFR Comment: INSUFFICIENT CLINICAL mL/min/1.73 sq m [facility] DATA TO CALCULATE ESTIMATED [facility] GFR. Specimen Blood Performing Organization Address City/State/Zipcode Phone Number [facility] [address] [place] [address] [facility] * CT chest without IV contrast (11/22/2018 6:03 PM CDT) Specimen Narrative Performed At FINAL REPORT Ovuline CT of the Chest dated 11/22/2018 COMPARISON: November 17, 2018 CLINICAL INFORMATION: JORDAN BRONCH Comment:Axial images of the chest were obtained from thoracic inlet to the upper abdomen without intravenous contrast. This exam was performed according to our departmental dose-optimization program, which includes automated exposure control, adjustment of the mA and/or kV according to patient size and/or use of interactive reconstruction technique. Heart is normal in size. Atherosclerotic calcification is seen in the thoracic aorta and coronary arteries. Great vessels are unremarkable. No adenopathy in the mediastinum or perihilar region. Trachea and mainstem bronchi are patent. There is mild to moderate pulmonary emphysema. A 2.8 x 4.7 cm spiculated mass is seen in the right upper lobe. A 5 mm nodule is seen in the peripheral of the right upper lobe. Nonspecific interstitial pulmonary disease is seen in the right upper lobe with thickened interlobar septi. No pleural effusion or pleural based mass is seen. Visualized upper abdomen demonstrates no focal lesion. Impression: Spicule mass and nodular lesion in the right upper lobe. Signed: Mracelo Boyd MD Report Verified Date/Time:11/22/2018 19:04:17 Reading Location: [address] Body Reading Room Procedure Note Interface, External Ris In - 11/26/2018 8:09 AM CDT FINAL REPORT CT of the Chest dated 11/22/2018 COMPARISON: November 17, 2018 CLINICAL INFORMATION: JORDAN BRONCH Comment: Axial images of the chest were obtained from thoracic inlet to the upper abdomen without intravenous contrast. This exam was performed according to our departmental dose-optimization program, which includes automated exposure control, adjustment of the mA and/or kV according to patient size and/or use of interactive reconstruction technique. Heart is normal in size. Atherosclerotic calcification is seen in the thoracic aorta and coronary arteries. Great vessels are unremarkable. No adenopathy in the mediastinum or perihilar region. Trachea and mainstem bronchi are patent. There is mild to moderate pulmonary emphysema. A 2.8 x 4.7 cm spiculated mass is seen in the right upper lobe. A 5 mm nodule is seen in the peripheral of the right upper lobe. Nonspecific interstitial pulmonary disease is seen in the right upper lobe with thickened interlobar septi. No pleural effusion or pleural based mass is seen. Visualized upper abdomen demonstrates no focal lesion. Impression: Spicule mass and nodular lesion in the right upper lobe. Signed: Marcelo Boyd MD Report Verified Date/Time: 11/22/2018 19:04:17 Reading Location: [facility] B1 C013Y CT Body Reading Room Performing Organization Address City/State/[facility] [place] [facility] Centercode Phone Number [facility] * SPIN/CONCENTRATION CHARGE (11/22/2018 12:58 PM CDT) Only the most recent of 3 results within the time period is included. Concentration charged Done [facility] Specimen Sputum - Expectorated Performing Organization Address City/[facility] [place] [facility] [place] [address] [phone] [place] [address] * REPORT OF PROCEDURE - ENDOSCOPY URL (11/22/2018 12:53 PM CDT) Narrative Performed At * EBUS FNA REQUEST (11/22/2018 8:20 AM CDT) Only the most recent of 2 results within the time period is included. Cytology See Separate Report [facility] Specimen EBUS Fine Needle Aspirate - Lymph Node, Interlobar, Right, Station 11R Performing Organization Address [facility] Phone Number [place] [phone] [place] [address] * Fine Needle Aspiration by EBUS (11/22/2018 8:20 AM CDT) Only the most recent of 2 results within the time period is included. Case Report Medical Cytology [facility] Report [facility] Case: [id number] Authorizing Provider:Leida Mcintosh MDCollected: 11/22/2018 0820 Ordering Location: [address] Received: 11/22/2018 0854 Service Pathologist: Ubaldo Ortiz MD Specimen:Lymph Node, Interlobar, Right, Station 11R DIAGNOSIS LYMPH NODE, INTERLOBAR RIGHT, [facility] STATION 11R EBUS FNA BY [facility] CLINICIAN (CYTOSPINS AND CELL BLOCK OF ASPIRATE): - LYMPHOCYTES PRESENT - NO MALIGNANT CELLS IDENTIFIED Signing Pathologist Direct Phone Line: [phone] COMMENT Please see cytopathology cases [facility] [id number] and [id number] [facility] CPT Code(s) 20947, 30294 [facility] CLINICAL DATA Lung Mass, mediastinal [facility] lymphadenopathy, adrenal and [facility] brain masses. Presumed lung cancer with mets. SPECIMEN SOURCE LYMPH NODE, INTERLOBAR RIGHT, [facility] STATION 11R EBUS FNA [facility] GROSS DESCRIPTION 35 mls in cytorich red; 2 [facility] cytospins, cell block [facility] (collodion bag) Collected: [id number] Received: [id number] SPECIAL STUDIES The interpretation of this [facility] case included the use of [facility] immunohistochemistry or special stains. Control Slides Examined: In-house known positive controls were evaluated along with the test tissue. These control slides run alongside of the patients sample show appropriate staining. Internal positive and negative controls when available are evaluated Immunohistochemistry technical testing was performed at [facility], Pathology Laboratory where it was developed and its performance characteristics were determined. It has not been cleared or approved by the U.S. Food and Drug Administration. The FDA has determined that such clearance or approval is not necessary. The test is used for clinical purposes. It should not be regarded as investigational or for research. This laboratory is certified under the Clinical Laboratory Improvement Amendments of 1988 (CLIA-88) as qualified to perform high complexity clinical laboratory testing. Gross assessment was [facility] performed at [place], [facility] Pathology, [address] [place] [address], Technical component was [facility] performed at [place], [facility] Pathology, [address] [place] [address], Professional component [facility] was performed at [place], [facility] Pathology, [address] [place] [address], Specimen EBUS Fine Needle Aspirate - Lymph Node, Interlobar, Right, Station 11R Narrative Performed At Performing Organization Address [facility] [place] [facility] Phone Number [facility] [address] [place] [address] [facility] * Bronchial culture + gram stain (11/22/2018 8:04 AM CDT) Result 3+ Normal respiratory selam [facility] Gram Stain Result <1+ WBCs [facility] Gram Stain Result No organisms seen [facility] Specimen BAL Performing Organization Address [facility] [place] [facility] Phone Number [facility] [address] [place] [address] [facility] * PT/aPTT (11/20/2018 4:55 AM CDT) Protime 13.7 11.9 - 14.2 seconds [facility] INR 1.1 <=5.9 [facility] PTT 32.4 22.5 - 36.0 seconds [facility] Specimen Blood Narrative Performed At Effective 11/13/2018: PT Reference Range Change [facility] New: 11.9-14.2Previous: 11.7-14.7 [facility] RECOMMENDED COUMADIN/WARFARIN INR THERAPY RANGES STANDARD DOSE: 2.0-3.0Includes: PROPHYLAXIS for venous thrombosis, systemic embolization; TREATMENT for venous thrombosis and/or pulmonary embolus. HIGH RISK: Target INR is 2.5-3.5 for patients wiht mechanical heart valves. Performing Organization Address [facility] [place] [facility] Centercode Phone Number [facility] [address] [place] [address] [facility] * Phosphorus (11/20/2018 4:55 AM CDT) Only the most recent of 3 results within the time period is included. Phosphorus 3.3 2.3 - 4.7 mg/dL [facility] Specimen Blood Narrative Performed At Check Serum Phosphorus level 4 hours after IV phosphorus replacement or 8 hours [facility] after PO replacement completed. [facility] Performing Organization Address City/State/Zipcode Phone Number [facility] [address] [place] [address] [facility] * Magnesium (11/20/2018 4:55 AM CDT) Only the most recent of 3 results within the time period is included. Magnesium 2.1 1.6 - 2.6 mg/dL [facility] Specimen Blood Narrative Performed At Check Serum Phosphorus level 4 hours after IV phosphorus replacement or 8 hours [facility] after PO replacement completed. [facility] Performing Organization Address City/[facility]/Zipcode Phone Number [facility] [address] [place] [address] [facility] * NM bone scan whole body (11/19/2018 4:43 PM CDT) Specimen Narrative Performed At FINAL REPORT [facility] PROCEDURE: BONE SCAN, WHOLE BODY CPT CODE:54776 INDICATION:Lung mass,neoplasm within the head, chest, and abdomen. PROTOCOL:21.4 mCi of Tc-99m MDP was injected intravenously. Whole body and selected spot images were obtained approximately 3 hours later. FINDINGS: Mild, focally increased radiotracer uptake at the costochondral junction of the left sixth rib, right first metatarsophalangeal joint, shoulders, sternoclavicular, and sacroiliac joints. IMPRESSION: No evidence of bony metastatic disease. Degenerative changes within the left sixth rib and peripheral joints. Images for comparison/correlation were obtained from CT of the chest, abdomen, and pelvis dated 11/17/2018. Signed: Rich Lara MD Report Verified Date/Time:11/19/2018 17:29:03 Reading Location: [address] Reading Room Procedure Note Interface, External Ris In - 11/19/2018 5:31 PM CDT FINAL REPORT PROCEDURE: BONE SCAN, WHOLE BODY CPT CODE: 18577 INDICATION: Lung mass, neoplasm within the head, chest, and abdomen. PROTOCOL: 21.4 mCi of Tc-99m MDP was injected intravenously. Whole body and selected spot images were obtained approximately 3 hours later. FINDINGS: Mild, focally increased radiotracer uptake at the costochondral junction of the left sixth rib, right first metatarsophalangeal joint, shoulders, sternoclavicular, and sacroiliac joints. IMPRESSION: No evidence of bony metastatic disease. Degenerative changes within the left sixth rib and peripheral joints. Images for comparison/correlation were obtained from CT of the chest, abdomen, and pelvis dated 11/17/2018. Signed: Rich Lara MD Report Verified Date/Time: 11/19/2018 17:29:03 Reading Location: [address] Reading Room Performing Organization Address City/State/Zipcode Phone Number [facility] * T Spot TB (11/19/2018 3:53 AM CDT) T-Spot TB Negative [facility] Neg Ctrl Spot Count 0 [facility] Panel A Spot 0 [facility] Panel B Spot 0 [facility] Pos Ctrl Spot Ct 0 [facility] Scan Result [facility] Specimen Blood Narrative Performed At Performing Organization Address City/State/[facility] [place] [facility] Centercode Phone Number [facility] [address] [place] [address] LABORATORIES 100 * Histoplasma antigen, urine (11/18/2018 10:30 PM CDT) Histoplasma Antigen <0.5 ng/mL [facility] Comment: INCORPORATED REFERENCE RANGE: <0.5 ng/mL Histoplasma galactomannan is frequently detected in urine from patients with disseminated histoplasmosis. However, a negative result does not exclude a diagnosis of histoplasmosis. Many patients with acute pulmonary disease or chronic cavitary disease do not exhibit antigenuria. Galactomannan levels in urine typically decrease with successful treatment. Specimens from patients with other endemic mycoses, such as blastomycosis, coccidioidomycosis, or aspergillosis, may also be positive in this assay. This test should be used in conjunction with other diagnostics tests, including culture, molecular assays, and histology in making a final diagnosis. This test was developed and its analytical performance characteristics have been determined by [facility]. It has not been cleared or approved by the U.S. Food and Drug Administration.The FDA has determined that such clearance or approval is not necessary. This assay has been validated pursuant to the CLIA regulations andis used for clinical purposes. Specimen Urine Narrative Performed At Performing Lab [facility] *[facility] [employer] [address] [place] [address] Vlad Cazares MD Performing Organization Address City/State/Zipcode Phone Number [facility], [address] [place], [place] INCORPORATED [facility] [address] * HIV-1 Antigen with HIV-1/2 Antibody (11/18/2018 6:37 PM CDT) HIV-1 Antigen with HIV Nonreactive Nonreactive [facility] 1&2 Antibody [facility] Specimen Blood Performing Organization Address City/[facility] [place] [facility] Centercode Phone Number [facility] [address] [place] [address] [phone] [place] [address] * Histoplasma Ab by Complement fixation (11/18/2018 6:37 PM CDT) Yeast Phase Antibody <1:8 [facility] INC[facility]ATED Mycelial Phase Antibody <1:8 [facility] Comment: INCORPORATED REFERENCE RANGE:<1:8 INTERPRETI VE CRITERIA: <1:8Antibody Not Detected > or=1:8Antibody Detected Complement-fixation (CF) titers greater than or equal to 1:8 are generally considered evidence indicative of histoplasmosis. Higher titers increase the probability of infection. However, positive titers are also seen with fungal infections other than histoplasmosis, and confirmation of antibody specificity with immunodiffusion procedures is recommended. Changing titers are useful both in diagnosis and in assessment of treatment efficacy. This test was developed and its analytical performance characteristics have been determined by [facility]. It has not been cleared or approved by FDA. This assay has been validated pursuant to the CLIA regulations and is used for clinical purposes. Specimen Blood Narrative Performed At Performing Lab [facility] *[facility] 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 COMPARISON: None FINDINGS: Multiple peripherally enhancing lesions within the parenchyma, several of which demonstrate surrounding vasogenic edema. Left parietal lesion measures 2 cm (axial thin section series 1101 image 135), 8 mm right parietal lesion (image 127), 16 mm right thalamic lesion (image 86), 7 mm right inferior temporal lesion (image 95), 5 mm left inferior frontal lesion (image 90) and 2.4 cm left temporal lobe lesion (image 66). Several lesions demonstrate restricted diffusion. "Solid-appearing" restricted diffusion within the right posterior frontal lesion, right thalamic lesion and the left temporal lobe lesion are noted, which, in the appropriate clinical setting, may represent sequela of intracranial abscess. Several lesions do not demonstrate this appearance and demonstrates restricted diffusion along the periphery corresponding to regions of nodular enhancement There is slight effacement of the right lateral ventricle due to aforementioned thalamic lesion. No hydrocephalus. Orbits are within normal limits. No obstructive paranasal sinus disease. Additional findings: None. IMPRESSION: Multiple peripherally enhancing lesions within the supratentorial parenchyma as per above. Some of these demonstrate uniform restricted diffusion, and, in the appropriate clinical setting, may represent intracranial abscesses. However, intracranial metastases remain the leading differential consideration. No significant midline shift secondary to aforementioned disease. There is mild effacement of the right lateral ventricle due to lesion within the right thalamus as per above without hydrocephalus or left ventricular entrapment. 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 COMPARISON: None FINDINGS: Multiple peripherally enhancing lesions within the parenchyma, several of which demonstrate surrounding vasogenic edema. Left parietal lesion measures 2 cm (axial thin section series 1101 image 135), 8 mm right parietal lesion (image 127), 16 mm right thalamic lesion (image 86), 7 mm right inferior temporal lesion (image 95), 5 mm left inferior frontal lesion (image 90) and 2.4 cm left temporal lobe lesion (image 66). Several lesions demonstrate restricted diffusion. "Solid-appearing" restricted diffusion within the right posterior frontal lesion, right thalamic lesion and the left temporal lobe lesion are noted, which, in the appropriate clinical setting, may represent sequela of intracranial abscess. Several lesions do not demonstrate this appearance and demonstrates restricted diffusion along the periphery corresponding to regions of nodular enhancement There is slight effacement of the right lateral ventricle due to aforementioned thalamic lesion. No hydrocephalus. Orbits are within normal limits. No obstructive paranasal sinus disease. Additional findings: None. IMPRESSION: Multiple peripherally enhancing lesions within the supratentorial parenchyma as per above. Some of these demonstrate uniform restricted diffusion, and, in the appropriate clinical setting, may represent intracranial abscesses. However, intracranial metastases remain the leading differential consideration. No significant midline shift secondary to aforementioned disease. There is mild effacement of the right lateral ventricle due to lesion within the right thalamus as per above without hydrocephalus or left ventricular entrapment. Signed: Henry Suarez MD Report Verified Date/Time: 11/18/2018 19:52:30 Reading Location: [facility] Radiology Reading Room Performing Organization Address City/State/Zipcode Phone Number [facility] * EEG AWAKE AND DROWSY (11/18/2018 8:54 AM CDT) Specimen Narrative Performed At NEUROPHYSIOLOGY SECTION: EEG REPORT [facility] S tudy: [id number] Patient: Ryan Lazcano ACC: [id number] Ordering physician: Jonny Gottlieb ICD10: R56.9 CPT: 73852 Date: 11/18/18 T otal monitoring time: 30 minutes T his is a digital EEG recorded with 32 input channels on a Netformx system and then reviewed with bipolar and referential montages using the modified combinatorial system nomenclature. D ESCRIPTION OF RECORD: The posterior dominant rhythm is 8 hz and well regulated. Lower voltage 18-22 hz activity is present in the bilateral frontal regions. The background retains appropriate spontaneous variability. Drowsiness and sleep were not achieved. F ocal features: a. none Hyperventilation was not performed. Photic stimulation across a broad range of frequencies did not induce abnormal waveforms or responses. E CG: regular, sinus rhythm E LECTROGRAPHIC/ELECTRO-CLINICAL EVENTS: b. None CLINICAL EVENTS: During orientation testing, the patient was oriented to time and city but not to the hospital. There were no electrographic correlates to any potential clinical confusion. Baseline awake patterns continued uninterrupted. IMPRESSION: NORMAL EEG IN WAKEFULNESS Clinical correlation: The absence of epileptiform activity does not rule out the possibility of epilepsy. If clinically indicated, consider additional EEG recordings. A cody Brantley M.D., Ph.D. Epilepsy Attending Procedure Note Interface, External Ris In - 11/18/2018 11:31 AM CDT NEUROPHYSIOLOGY SECTION: EEG REPORT Study: 5 Patient: Ryan Lazcano ACC: [id number] Ordering physician: Jonny Gottlieb ICD10: R56.9 CPT: 04658 Date: 11/18/18 Total monitoring time: 30 minutes This is a digital EEG recorded with 32 input channels on a Netformx system and then reviewed with bipolar and referential montages using the modified combinatorial system nomenclature. DESCRIPTION OF RECORD: The posterior dominant rhythm is 8 hz and well regulated. Lower voltage 18-22 hz activity is present in the bilateral frontal regions. The background retains appropriate spontaneous variability. Drowsiness and sleep were not achieved. Focal features: a. none Hyperventilation was not performed. Photic stimulation across a broad range of frequencies did not induce abnormal waveforms or responses. ECG: regular, sinus rhythm ELECTROGRAPHIC/ELECTRO-CLINICAL EVENTS: b. None CLINICAL EVENTS: During orientation testing, the patient was oriented to time and city but not to the hospital. There were no electrographic correlates to any potential clinical confusion. Baseline awake patterns continued uninterrupted. IMPRESSION: NORMAL EEG IN WAKEFULNESS Clinical correlation: The absence of epileptiform activity does not rule out the possibility of epilepsy. If clinically indicated, consider additional EEG recordings. Katy Brantley M.D., Ph.D. Epilepsy Attending Performing Organization Address City/State/Zipcode Phone Number [facility] * CT abdomen/pelvis with IV contrast (11/17/2018 3:01 PM CDT) Specimen Narrative Performed At FINAL REPORT [facility] TECHNIQUE: CT of the chest, abdomen, and pelvis WITH intravenous contrast and WITHOUT oral contrast. Dose modulation, iterative reconstruction, and/or weight-based adjustment of the mA/kV was utilized to reduce the radiation dose to as low as reasonably achievable. INDICATION: Neoplasm: chest, lung, suspected. COMPARISON: None. FINDINGS: LINES/TUBES: None. LUNGS AND AIRWAYS: Moderate centrilobular emphysema. A right upper lobe cavitary lesion measures 3.7 x 5 x 2.5 cm. At some point, this is inseparable from the adjacent pleura. An additional nodule in the right on axial image 28 measures 0.5 cm. PLEURA: The pleural spaces are clear. HEART AND MEDIASTINUM: The visualized thyroid gland is normal. Prominent right perihilar lymph nodes measure up to 0.8 cm in short axis dimension. A right lower paratracheal lymph node measures 0.9 cm in short axis dimension on axial image 26. The heart and pericardium are within normal limits. Moderate calcification the left anterior descending and circumflex coronary arteries. HEPATOBILIARY: No focal hepatic lesions. Gallbladder is unremarkable. No biliary ductal dilatation. SPLEEN: No splenomegaly. PANCREAS: No focal masses or ductal dilatation. ADRENALS: A hypodense left adrenal nodule measures 1.9 cm on axial image 62. KIDNEYS/URETERS: No hydronephrosis, stones, or solid mass lesions. PELVIC ORGANS/BLADDER: Unremarkable. PERITONEUM/RETROPERITONEUM: No free air or fluid. LYMPH NODES: No lymphadenopathy. VESSELS: Unremarkable. GI TRACT: The gastric wall is diffusely thickened. Mild diverticulosis of the sigmoid colon. BONES AND SOFT TISSUES: Mild degenerative disc changes scattered throughout the visualized spine. IMPRESSION: 1.A right upper lobe cavitary lesion measures up to 5 cm and is highly concerning for malignancy. 2.The additional right upper lobe 0.5 cm nodule is indeterminate. 3.There are prominent lymph nodes in the right perihilar and right lower paratracheal regions which are not enlarged by CT size criteria. 4.A left adrenal nodule measures 1.9 cm and is indeterminate but concerning for metastasis. Further evaluation with a CT of the abdomen with and without contrast, adrenal mass protocol, is recommended. 5.Moderate centrilobular emphysema. 6.The diffuse thickening of the gastric wall could be due to gastritis or chronic proton pump inhibitor use. Signed: Glenn Cadet MD Report Verified Date/Time:11/17/2018 17:51:15 Reading Location: [facility] B1 C013Y CT Body Reading Room Procedure Note Interface, External Ris In - 11/17/2018 5:53 PM CDT FINAL REPORT TECHNIQUE: CT of the chest, abdomen, and pelvis WITH intravenous contrast and WITHOUT oral contrast. Dose modulation, iterative reconstruction, and/or weight-based adjustment of the mA/kV was utilized to reduce the radiation dose to as low as reasonably achievable. INDICATION: Neoplasm: chest, lung, suspected. COMPARISON: None. FINDINGS: LINES/TUBES: None. LUNGS AND AIRWAYS: Moderate centrilobular emphysema. A right upper lobe cavitary lesion measures 3.7 x 5 x 2.5 cm. At some point, this is inseparable from the adjacent pleura. An additional nodule in the right on axial image 28 measures 0.5 cm. PLEURA: The pleural spaces are clear. HEART AND MEDIASTINUM: The visualized thyroid gland is normal. Prominent right perihilar lymph nodes measure up to 0.8 cm in short axis dimension. A right lower paratracheal lymph node measures 0.9 cm in short axis dimension on axial image 26. The heart and pericardium are within normal limits. Moderate calcification the left anterior descending and circumflex coronary arteries. HEPATOBILIARY: No focal hepatic lesions. Gallbladder is unremarkable. No biliary ductal dilatation. SPLEEN: No splenomegaly. PANCREAS: No focal masses or ductal dilatation. ADRENALS: A hypodense left adrenal nodule measures 1.9 cm on axial image 62. KIDNEYS/URETERS: No hydronephrosis, stones, or solid mass lesions. PELVIC ORGANS/BLADDER: Unremarkable. PERITONEUM/RETROPERITONEUM: No free air or fluid. LYMPH NODES: No lymphadenopathy. VESSELS: Unremarkable. GI TRACT: The gastric wall is diffusely thickened. Mild diverticulosis of the sigmoid colon. BONES AND SOFT TISSUES: Mild degenerative disc changes scattered throughout the visualized spine. IMPRESSION: 1.A right upper lobe cavitary lesion measures up to 5 cm and is highly concerning for malignancy. 2.The additional right upper lobe 0.5 cm nodule is indeterminate. 3.There are prominent lymph nodes in the right perihilar and right lower paratracheal regions which are not enlarged by CT size criteria. 4.A left adrenal nodule measures 1.9 cm and is indeterminate but concerning for metastasis. Further evaluation with a CT of the abdomen with and without contrast, adrenal mass protocol, is recommended. 5.Moderate centrilobular emphysema. 6.The diffuse thickening of the gastric wall could be due to gastritis or chronic proton pump inhibitor use. Signed: Glenn Cadet MD Report Verified Date/Time: 11/17/2018 17:51:15 Reading Location: [address] Body Reading Room Performing Organization Address City/State/Zipcode Phone Number [facility] * CT chest with IV contrast (11/17/2018 3:01 PM CDT) Specimen Narrative Performed At FINAL REPORT [facility] TECHNIQUE: CT of the chest, abdomen, and pelvis WITH intravenous contrast and WITHOUT oral contrast. Dose modulation, iterative reconstruction, and/or weight-based adjustment of the mA/kV was utilized to reduce the radiation dose to as low as reasonably achievable. INDICATION: Neoplasm: chest, lung, suspected. COMPARISON: None. FINDINGS: LINES/TUBES: None. LUNGS AND AIRWAYS: Moderate centrilobular emphysema. A right upper lobe cavitary lesion measures 3.7 x 5 x 2.5 cm. At some point, this is inseparable from the adjacent pleura. An additional nodule in the right on axial image 28 measures 0.5 cm. PLEURA: The pleural spaces are clear. HEART AND MEDIASTINUM: The visualized thyroid gland is normal. Prominent right perihilar lymph nodes measure up to 0.8 cm in short axis dimension. A right lower paratracheal lymph node measures 0.9 cm in short axis dimension on axial image 26. The heart and pericardium are within normal limits. Moderate calcification the left anterior descending and circumflex coronary arteries. HEPATOBILIARY: No focal hepatic lesions. Gallbladder is unremarkable. No biliary ductal dilatation. SPLEEN: No splenomegaly. PANCREAS: No focal masses or ductal dilatation. ADRENALS: A hypodense left adrenal nodule measures 1.9 cm on axial image 62. KIDNEYS/URETERS: No hydronephrosis, stones, or solid mass lesions. PELVIC ORGANS/BLADDER: Unremarkable. PERITONEUM/RETROPERITONEUM: No free air or fluid. LYMPH NODES: No lymphadenopathy. VESSELS: Unremarkable. GI TRACT: The gastric wall is diffusely thickened. Mild diverticulosis of the sigmoid colon. BONES AND SOFT TISSUES: Mild degenerative disc changes scattered throughout the visualized spine. IMPRESSION: 1.A right upper lobe cavitary lesion measures up to 5 cm and is highly concerning for malignancy. 2.The additional right upper lobe 0.5 cm nodule is indeterminate. 3.There are prominent lymph nodes in the right perihilar and right lower paratracheal regions which are not enlarged by CT size criteria. 4.A left adrenal nodule measures 1.9 cm and is indeterminate but concerning for metastasis. Further evaluation with a CT of the abdomen with and without contrast, adrenal mass protocol, is recommended. 5.Moderate centrilobular emphysema. 6.The diffuse thickening of the gastric wall could be due to gastritis or chronic proton pump inhibitor use. Signed: Glenn Cadet MD Report Verified Date/Time:11/17/2018 17:51:15 Reading Location: [address] Body Reading Room Procedure Note Interface, External Ris In - 11/17/2018 5:53 PM CDT FINAL REPORT TECHNIQUE: CT of the chest, abdomen, and pelvis WITH intravenous contrast and WITHOUT oral contrast. Dose modulation, iterative reconstruction, and/or weight-based adjustment of the mA/kV was utilized to reduce the radiation dose to as low as reasonably achievable. INDICATION: Neoplasm: chest, lung, suspected. COMPARISON: None. FINDINGS: LINES/TUBES: None. LUNGS AND AIRWAYS: Moderate centrilobular emphysema. A right upper lobe cavitary lesion measures 3.7 x 5 x 2.5 cm. At some point, this is inseparable from the adjacent pleura. An additional nodule in the right on axial image 28 measures 0.5 cm. PLEURA: The pleural spaces are clear. HEART AND MEDIASTINUM: The visualized thyroid gland is normal. Prominent right perihilar lymph nodes measure up to 0.8 cm in short axis dimension. A right lower paratracheal lymph node measures 0.9 cm in short axis dimension on axial image 26. The heart and pericardium are within normal limits. Moderate calcification the left anterior descending and circumflex coronary arteries. HEPATOBILIARY: No focal hepatic lesions. Gallbladder is unremarkable. No biliary ductal dilatation. SPLEEN: No splenomegaly. PANCREAS: No focal masses or ductal dilatation. ADRENALS: A hypodense left adrenal nodule measures 1.9 cm on axial image 62. KIDNEYS/URETERS: No hydronephrosis, stones, or solid mass lesions. PELVIC ORGANS/BLADDER: Unremarkable. PERITONEUM/RETROPERITONEUM: No free air or fluid. LYMPH NODES: No lymphadenopathy. VESSELS: Unremarkable. GI TRACT: The gastric wall is diffusely thickened. Mild diverticulosis of the sigmoid colon. BONES AND SOFT TISSUES: Mild degenerative disc changes scattered throughout the visualized spine. IMPRESSION: 1.A right upper lobe cavitary lesion measures up to 5 cm and is highly concerning for malignancy. 2.The additional right upper lobe 0.5 cm nodule is indeterminate. 3.There are prominent lymph nodes in the right perihilar and right lower paratracheal regions which are not enlarged by CT size criteria. 4.A left adrenal nodule measures 1.9 cm and is indeterminate but concerning for metastasis. Further evaluation with a CT of the abdomen with and without contrast, adrenal mass protocol, is recommended. 5.Moderate centrilobular emphysema. 6.The diffuse thickening of the gastric wall could be due to gastritis or chronic proton pump inhibitor use. Signed: Glenn Cadet MD Report Verified Date/Time: 11/17/2018 17:51:15 Reading Location: [facility] B1 C013Y CT Body Reading Room Performing Organization Address City/State/Zipcode Phone Number [facility] * Troponin I (11/17/2018 4:06 AM CDT) Troponin I <0.01 0.00 - 0.03 ng/mL [facility] Specimen Blood Narrative Performed At Troponin I (TnI) levels must be interpreted in the context of the presenting [facility] symptoms and the clinical findings. Elevated TnI levels indicate myocardial [facility] damage, but are not specific for ischemic heart disease. Elevated TnI levels are seen in patients with other cardiac conditions (including myocarditis and congestive heart failure), and slight TnI elevations occur in patients with other conditions, including sepsis, renal failure, acidosis, acute neurological disease, and persistent tachyarrhythmia. Performing Organization Address [facility] Phone Number [facility] [address], [place] [phone] [facility] * Hepatic function panel (11/17/2018 4:06 AM CDT) Protein, Total 7.4 6.0 - 8.3 gm/dL [facility] Albumin 4.3 3.5 - 5.0 g/dL [facility] Total Bilirubin 0.5 0.2 - 1.2 mg/dL [facility] Bilirubin, Direct 0.3 0.1 - 0.5 mg/dL [facility] Alkaline Phosphatase 82 40 - 150 U/L [facility] AST 18 5 - 34 U/L [facility] ALT 15 6 - 55 U/L [facility] Specimen Blood Performing Organization Address City/State/Zipcode Phone Number [facility] [address], [place] [phone] [facility] after 12/05/2017 Insurance Payer Benefit Subscriber ID Type Phone Address Plan / Group [employer] - [employer] xxxxxxxxxx HMO/POS SELECT US ACCESS Advance Directives For more information, please contact: [address] [phone] Date Inactivated Comments Code Status Date Activated 11/28/2018 8:04 PM Full Code 11/17/2018 2:40 AM This code status was determined by: Patient
--- OUTSIDE RECORDS SUMMARY | 2018-12-06 11:05 | XMS REPORT ---
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 Allergies, Adverse Reactions, Alerts This patient has no known allergies or adverse reactions. Medications This patient has no known medications. Results Test Description Test Time Test Comments Text Results Atomic Results Result Comments NORMA COBB IN OR/30 MINUTE INCREMENTS 2018-12-02 17:13:00 Reason for exam:->Bronchoscopy FLUOROSCOPIC UNIT UTILIZED-NO INTERPRETATION REQUESTED. ICALLY OBTAINED CULTURE + GRAM STAIN 2018-11-29 12:18:00 CULTURE (BEAKER) (test petx=0700) From Broth Only Viridans Streptococcus GRAM STAIN RESULT (BEAKER) (test rujj=8957) <1+ WBCs GRAM STAIN RESULT (BEAKER) (test bifn=81391) No organisms seen SURGICALLY OBTAINED CULTURE + GRAM [id number] 11:48:00* Test Item Value Reference Range Comments CULTURE (BEAKER) (test kdsc=5778) <1+ Viridans Streptococcus GRAM STAIN RESULT (BEAKER) (test tukh=1747) No WBCs GRAM STAIN RESULT (BEAKER) (test zobg=44164) No organisms seen TISSUE [id number] 13:31:00Surgical Pathology Report Case: [id number] Authorizing Provider: Leida Mcintosh MD Collected: 11/26/2018 1227 Ordering Location: [facility] Received: 11/26/2018 1307 SERVICES Pathologist: Nasra Plummer MD Specimen: Lung, Right Upper Lobe, TBBX, process in cytology for colloidion bag, reflex genetic markers A. LUNG, RIGHT UPPER LOBE, TRANSBRONCHIAL BIOPSY: - ADENOCARCINOMA, CONSISTENT WITH PULMONARY PRIMARY (SEE COMMENT) Signing Pathologist Direct Phone Line: [phone] signed by Nasra Plummer MD on 11/28/2018 at 1:31 PMPreliminary result electronically signed by Nasra Plummer MD on 11/27/2018 at 9:50 AMA. Immunostain for TTF1 is positive and p40 is negative, supporting the above diagnosis.[id number] massA. Right upper lobe lung transbronchial biopsySpecimen A: The specimen is received in a formalin-filled container and labeled with the patient's information [...] fragments, submitted entirely A1 in a collodion bag.Performed.The interpretation of this case included the use of immunohistochemistry or special stains.Control Slides Examined: In-house known positive controls were evaluated along with the test tissue. These control slides run alongside of the patients sample show appropriate staining. Internal positive and negative controls when available are evaluated Immunohistochemistry technical testing was performed at [facility], Pathology Laboratory where it was developed and its performance characteristics were det ermined. It has not been cleared or approved by the U.S. Food and Drug Administr [facility]. The FDA has determined that such clearance or approval is not necessary. The test is used for clinical purposes. It should not be regarded as investigati onal or for research. This laboratory is certified under the Clinical Laboratory Improvement Amendments of 1988 (CLIA-88) as qualified to perform high complexity clinical laboratory testing.[facility], Department of Pa thology, [address] [place] [address], [facility], [facility] of [facility]ology, [address] [place] [address], [facility]wgcSaint [facility], [facility] of [facility]ology, [address] [place] [address], SUVG-GLUCOSE METER 2018-11-28 13:20:00* Test Item Value Reference Range Comments POC-GLUCOSE METER (BEAKER) (test apbm=8899) 105 mg/dL 70-110 TESTED AT [place] [id number] [address] POCT-GLUCOSE [id number] 07:54:00* Test Item Value Reference Range Comments POC-GLUCOSE METER (BEAKER) (test imze=9431) 133 mg/dL 70-110 TESTED AT [address] [address] BASIC METABOLIC [id number] 06:38:00* Test Item Value Reference Range Comments SODIUM (BEAKER) (test bycv=124) 132 meq/L 136-145 POTASSIUM (BEAKER) (test nubw=332) 3.8 meq/L 3.5-5.1 CHLORIDE (BEAKER) (test kkwj=441) 102 meq/L 98-107 CO2 (BEAKER) (test vkyw=118) 23 meq/L 22-29 BLOOD UREA NITROGEN (BEAKER) (test zivj=098) 16 mg/dL 7-21 CREATININE (BEAKER) (test gilq=029) 0.62 mg/dL 0.57-1.25 GLUCOSE RANDOM (BEAKER) (test yfmm=741) 125 mg/dL 70-105 CALCIUM (BEAKER) (test cfee=064) 8.4 mg/dL 8.4-10.2 EGFR (BEAKER) (test serw=4531) mL/min/1.73 sq m INSUFFICIENT CLINICAL DATA TO CALCULATE ESTIMATED GFR. CBC W/PLT COUNT & AUTO [id number] 06:25:00* Test Item Value Reference Range Comments WHITE BLOOD CELL COUNT (BEAKER) (test qdvm=651) 12.6 K/ L 3.5-10.5 RED BLOOD CELL COUNT (BEAKER) (test wrbf=205) 3.66 M/ L 4.63-6.08 HEMOGLOBIN (BEAKER) (test cpee=018) 12.1 GM/DL 13.7-17.5 HEMATOCRIT (BEAKER) (test zktp=468) 35.5 % 40.1-51.0 MEAN CORPUSCULAR VOLUME (BEAKER) (test jrhx=845) 97.0 fL 79.0-92.2 MEAN CORPUSCULAR HEMOGLOBIN (BEAKER) (test meur=453) 33.1 pg 25.7-32.2 MEAN CORPUSCULAR HEMOGLOBIN CONC (BEAKER) (test hcbi=567) 34.1 GM/DL 32.3-36.5 RED CELL DISTRIBUTION WIDTH (BEAKER) (test bgbx=223) 12.2 % 11.6-14.4 PLATELET COUNT (BEAKER) (test czgz=300) 262 K/CU MM 150-450 MEAN PLATELET VOLUME (BEAKER) (test zdsg=723) 9.0 fL 9.4-12.4 NUCLEATED RED BLOOD CELLS (BEAKER) (test nvpx=540) 0 /100 WBC 0-0 NEUTROPHILS RELATIVE PERCENT (BEAKER) (test olbs=156) 86 % LYMPHOCYTES RELATIVE PERCENT (BEAKER) (test jmak=468) 9 % MONOCYTES RELATIVE PERCENT (BEAKER) (test vnzg=308) 4 % EOSINOPHILS RELATIVE PERCENT (BEAKER) (test mwdw=762) 0 % BASOPHILS RELATIVE PERCENT (BEAKER) (test fyhg=805) 0 % NEUTROPHILS ABSOLUTE COUNT (BEAKER) (test phni=332) 10.84 K/ L 1.78-5.38 LYMPHOCYTES ABSOLUTE COUNT (BEAKER) (test lnro=046) 1.13 K/ L 1.32-3.57 MONOCYTES ABSOLUTE COUNT (BEAKER) (test zgki=478) 0.48 K/ L 0.30-0.82 EOSINOPHILS ABSOLUTE COUNT (BEAKER) (test buvq=709) 0.00 K/ L 0.04-0.54 BASOPHILS ABSOLUTE COUNT (BEAKER) (test jjiu=846) 0.01 K/ L 0.01-0.08 IMMATURE GRANULOCYTES-RELATIVE PERCENT (BEAKER) (test gnji=8991) 1 % 0-1 POCT-GLUCOSE [id number] 21:03:00* Test Item Value Reference Range Comments POC-GLUCOSE METER (BEAKER) (test zohp=0417) 135 mg/dL 70-110 TESTED AT [place] [id number] POCT-GLUCOSE [id number] 17:42:00* Test Item Value Reference Range Comments POC-GLUCOSE METER (BEAKER) (test njrb=8213) 180 mg/dL 70-110 TESTED AT [address] [address] [id number] 13:01:00Medical Cytology Report Case: [id number] Authorizing Provider: Leida Mcintosh MD Collected: 11/26/2018 1229 Ordering Location: [facility] Received: 11/26/2018 1305 SERVICES Pathologist: Ubaldo Ortiz MD Specimen: Lung, Right Upper Lobe, BAL LUNG, RIGHT UPPER LOBE, BAL (CYTOSPINS): - NON SMALL CELL CARCINOMA, POORLY DIFFERENTIATED, WITH DEGENERATIVE FEATURES Signing Pathologist Direct Phone Line: [phone] signed by Ubaldo Ortiz MD on 11/27/2018 at 1:01 PMPlease also see surgical pathology report [id number] and cytopathology report [id number]. 47092Slnx mass LUNG, RIGHT UPPER LOBE BALPrepared 4 cytospins from 15 ml blood-tinged fluidCollected: [id number]: [id number] degenerating atypical cells consistent with non-small cell carcinoma are present. Benign bronchial epithelial cells and macrophages are present in background.[facility], Department of Pathology, [address] [place], [place] [address], OldoxsSaint [facility], Department of Pathology, [address] [place], [place] [address], OkddwcSaint Agnes Medical Center, Department of Pathology, [address] [place] [address], SKDK NEEDLE ASPIRATION BY [id number] 12:55:00 Medical Cytology Report Case: [id number] Authorizing Provider: Leida Mcintosh MD Collected: 11/26/2018 1228 Ordering Location: [facility] Received: 11/26/2018 1305 SER VICES Patholog ist: Ubaldo Ortiz MD Specimen: Lung, Right Upper Lobe LUNG, RIGHT UPPER LOBE, FNA BY CLINICIAN (CYTOSPINS AND CELL BLOCK OF ASPIRATE): - NON SMALL CELL CARCINOMA, POORLY DIFFERENTIATED Signing Pathologist Direct Phone Line: [phone] signed by Ubaldo Ortiz MD on 11/27/2018 at 12:55 PMPlease also see surgical pathology report [id number] and cytopathology report [id number]. [address]66[address], 41813Cfzg massLUNG, R IGHT UPPER LOBE FNA Prepared cell block(A2) and 2 cytospins from 42 ml cytorich red fixative sampleCollected: [id number]: 524453Dhu interpretation of this c ase included the use of immunohistochemistry or special stains.Control Slides Ex amined: In-house known positive controls were evaluated along with the test tis brenda. These control slides run alongside of the patients sample show appropriate staining. Internal positive and negative controls when available are evaluated Immunohistochemistry technical testing was performed at [facility], Pathology Laboratory where it was developed and its performance charac teristics were determined. It has not been cleared or approved by the U.S. Food and Drug Administration. The FDA has determined that such clearance or approval is not necessary. The test is used for clinical purposes. It should not be regar ded as investigational or for research. This laboratory is certified under the C linical Laboratory Improvement Amendments of 1988 (CLIA-88) as qualified to perf orm high complexity clinical laboratory testing.[facility] , Department of Pathology, [address] [place] [address], Tel [phone] [place] [address], Department of Pathology, [address] [place] [address], FzwaznSaint Agnes Medical Center, Departme nt of Pathology, [address] [place] [address], XLDG- GLUCOSE [id number] 12:43:00* Test Item Value Reference Range Comments POC-GLUCOSE METER (BEAKER) (test vnzz=7573) 105 mg/dL 70-110 TESTED AT [place] [address] FINE NEEDLE ASPIRATE BY [id number] 12:42:00Medical Cytology Report Case: [id number] Authorizing Provider: Leida Mcintosh MD Collected: 11/22/2018 0749 Ordering Location: [address] Received: 11/22/2018 0808 Service Pathologist: Ubaldo Ortiz MD Specimen: Lymph Node, Lower Paratracheal, Right, Station 4R LYMPH NODE, LOWER PARATRACHEAL, RIGHT, STATION 4R EBUS FNA BY CLINICIAN (DIRECT SMEARS AND CELL BLOCK OF ASPIRATE): - LYMPHOCYTES PRESENT - NO EPITHELIAL MALIGNANCY SEEN Signing Pathologist Direct Phone Line: [phone] signed by Ubaldo Ortiz MD on 11/27/2018 at 12:42 PMPlease see cytopathology cases [id number] and [id number], [id number], 757[address]Ezsl Mass, mediastinal lymphadenopathy, adrenal and brain masses. Presumed lung cancer with mets. LYMPH NODE, LOWER PARATRACHEAL, RIGHT, STATION 4R EBUS FNA45 mls in cytorich red; 4 cytospins, cell blockCollected: [id number]: [id number] PHOCYTES PRESENT (8:30AM, [place])PERFORMED.The interpretation of this case included the use of immunohistochemistry or special stains.Control Slides Examined: In-h ouse known positive controls were evaluated along with the test tissue. These c ontrol slides run alongside of the patients sample show appropriate staining. In ternal positive and negative controls when available are evaluated Immunohistoch emistry technical testing was performed at [facility], [facility] Laboratory where it was developed and its performance characteristics wer e determined. It has not been cleared or approved by the U.S. Food and Drug Admi nistration. The FDA has determined that such clearance or approval is not necess harmony. The test is used for clinical purposes. It should not be regarded as invest igational or for research. This laboratory is certified under the Clinical Labor atory Improvement Amendments of 1988 (CLIA-88) as qualified to perform high comp lexity clinical laboratory testing.[facility], Department of Pathology, [address] [place] [address], XyfsiiSaint Agnes Medical Center, Department of Pathology, [address] [place] [address], ZxymyhSaint Agnes Medical Center, Department of Patholo gy, [address] [place] [address], BWUH-GLUCOSE METER 2018-11-27 09:13:00* Test Item Value Reference Range Comments POC-GLUCOSE METER (BEAKER) (test ktik=8628) 96 mg/dL 70-110 TESTED AT [facility] [address] [facility] [address] BASIC METABOLIC [id number] 07:00:00* Test Item Value Reference Range Comments SODIUM (BEAKER) (test gcnj=496) 133 meq/L 136-145 POTASSIUM (BEAKER) (test tffo=715) 3.9 meq/L 3.5-5.1 CHLORIDE (BEAKER) (test qttg=509) 102 meq/L 98-107 CO2 (BEAKER) (test dbxa=926) 25 meq/L 22-29 BLOOD UREA NITROGEN (BEAKER) (test dnmk=960) 20 mg/dL 7-21 CREATININE (BEAKER) (test ddfo=409) 0.63 mg/dL 0.57-1.25 GLUCOSE RANDOM (BEAKER) (test xqwb=097) 116 mg/dL 70-105 CALCIUM (BEAKER) (test fhdx=583) 8.2 mg/dL 8.4-10.2 EGFR (BEAKER) (test axdx=7521) mL/min/1.73 sq m INSUFFICIENT CLINICAL DATA TO CALCULATE ESTIMATED GFR. CBC W/PLT COUNT & AUTO [id number] 06:53:00* Test Item Value Reference Range Comments WHITE BLOOD CELL COUNT (BEAKER) (test kyeh=873) 13.0 K/ L 3.5-10.5 RED BLOOD CELL COUNT (BEAKER) (test wmmt=771) 3.65 M/ L 4.63-6.08 HEMOGLOBIN (BEAKER) (test wfja=612) 12.1 GM/DL 13.7-17.5 HEMATOCRIT (BEAKER) (test funs=670) 34.7 % 40.1-51.0 MEAN CORPUSCULAR VOLUME (BEAKER) (test mwsy=992) 95.1 fL 79.0-92.2 MEAN CORPUSCULAR HEMOGLOBIN (BEAKER) (test oyjz=086) 33.2 pg 25.7-32.2 MEAN CORPUSCULAR HEMOGLOBIN CONC (BEAKER) (test rsno=281) 34.9 GM/DL 32.3-36.5 RED CELL DISTRIBUTION WIDTH (BEAKER) (test lbdi=006) 12.1 % 11.6-14.4 PLATELET COUNT (BEAKER) (test ipvk=025) 268 K/CU MM 150-450 MEAN PLATELET VOLUME (BEAKER) (test rqug=219) 9.3 fL 9.4-12.4 NUCLEATED RED BLOOD CELLS (BEAKER) (test ybae=710) 0 /100 WBC 0-0 NEUTROPHILS RELATIVE PERCENT (BEAKER) (test okup=005) 85 % LYMPHOCYTES RELATIVE PERCENT (BEAKER) (test mqtw=618) 10 % MONOCYTES RELATIVE PERCENT (BEAKER) (test uttw=794) 5 % EOSINOPHILS RELATIVE PERCENT (BEAKER) (test rlpw=700) 0 % BASOPHILS RELATIVE PERCENT (BEAKER) (test zmzs=204) 0 % NEUTROPHILS ABSOLUTE COUNT (BEAKER) (test yini=286) 11.07 K/ L 1.78-5.38 LYMPHOCYTES ABSOLUTE COUNT (BEAKER) (test qqfv=318) 1.26 K/ L 1.32-3.57 MONOCYTES ABSOLUTE COUNT (BEAKER) (test rkkb=947) 0.62 K/ L 0.30-0.82 EOSINOPHILS ABSOLUTE COUNT (BEAKER) (test mtxn=724) 0.00 K/ L 0.04-0.54 BASOPHILS ABSOLUTE COUNT (BEAKER) (test hvla=824) 0.01 K/ L 0.01-0.08 IMMATURE GRANULOCYTES-RELATIVE PERCENT (BEAKER) (test ptba=5777) 1 % 0-1 FINE NEEDLE ASPIRATE BY [id number] 22:10:00Medical Cytology Report Case: [id number] Authorizing Provider: Leida Mcintosh MD Collected: 11/22/2018 0820 Ordering Location: [address] Received: 11/22/2018 0854 Service Pathologist: Ubaldo Ortiz MD Specimen: Lymph Node, Interlobar, Right, Station 11R LYMPH NODE, INTERLOBAR RIGHT, STATION 11R EBUS FNA BY CLINICIAN (CYTOSPINS AND CELL BLOCK OF ASPIRATE): - LYMPHOCYTES PRESENT - NO MALIGNANT CELLS IDENTIFIED Signing Pathologist Direct Phone Line: Please see cytopathology cases [id number] and [id number], [id number] Mass, mediastinal ly mphadenopathy, adrenal and brain masses. Presumed lung cancer with mets. LYMPH N ODE, INTERLOBAR RIGHT, STATION 11R EBUS FNA35 mls in cytorich red; 2 cytospins, cell block (collodion bag)Collected: [id number]: [id number] interpretation of this case included the use of immunohistochemistry or special stains.Control Sl ides Examined: In-house known positive controls were evaluated along with the t est tissue. These control slides run alongside of the patients sample show appr opriate staining. Internal positive and negative controls when available are sue alfred Immunohistochemistry technical testing was performed at [facility], Pathology Laboratory where it was developed and its performance characteristics were determined. It has not been cleared or approved by the U.S. Food and Drug Administration. The FDA has determined that such clearance or ap proval is not necessary. The test is used for clinical purposes. It should not b e regarded as investigational or for research. This laboratory is certified unde r the Clinical Laboratory Improvement Amendments of 1988 (CLIA-88) as qualified to perform high complexity clinical laboratory testing.[facility], Department of Pathology, [address] [place] [address], Tel [phone] Agnes Medical Center, Department of Pathology, [address] [place] [address], HnoctmSaint Agnes Medical Center, D epartment of Pathology, [address] [place] [address], [id number] 22:07:00Medical Cytology Report Case: [id number] Authorizing Provider: Leida Mcintosh MD Collected: 11/22/2018 0804 Ordering Location: [address] Received: 11/22/2018 0853 Service Pathologist: Ubaldo Ortiz MD Specimen: Lung, Right Upper Lobe RIGHT UPPER LOBE LUNG BAL (CYTOSPINS): - NO MALIGNANT CELLS IDENTIFIED Signing Pathologist Direct Phone Line: [phone] signed by Ubaldo Ortiz MD on 11/26/2018 at 10:07 PMPlease see cytopathology cases [id number] and [id number] Mass, mediastinal lymphadenopathy, adrenal and brain masses. Presumed lung cancer with mets. RIGHT UPPER LOBE LUNG BAL10 mls colorless; 4 cytospinsCollected: [id number]: [id number].Satisfactoryylor [facility], Department of Pathology, [address] [place] [address], TrvaidSaint Agnes Medical Center, Department of Pathology, [address] [place] [address], YrvqzzSaint Agnes Medical Center, Department of Pathology, [address] [place], [place] [address], HAGY-GLUCOSE [id number] 21:38:00* Test Item Value Reference Range Comments POC-GLUCOSE METER (BEAKER) (test fzja=5223) 144 mg/dL 70-110 TESTED AT [place] [address]19630 POCT-GLUCOSE [id number] 17:20:00* Test Item Value Reference Range Comments POC-GLUCOSE METER (BEAKER) (test meth=0033) 145 mg/dL 70-110 TESTED AT [place] [address]196[address] RAD, CHEST, 1 VIEW, NON [id number] 15:04:00Reason for exam:->s/p RUL TBBX, cough, rule out PTXFINAL REPORT TECHNIQUE: Frontal chest radiograph dated 11/26/2018. CLINICAL HISTORY: Status post right upper lobe transbronchial biopsy COMPARISON STUDY: Chest CT dated 11/22/2018 IMPRESSION:Right upper lobe mass is again visualized. Lungs are otherwise clear. No pleural effusion or pneumothorax. Cardiomediastinal silhouette is normal in size. No pulmonary edema. Bones are osteopenic. Signed: Daniel Rogereport Verified Date/Time: 11/26/2018 15:04:06 Reading Location: [facility] Radiology Reading Room LOGY [id number] 15:01:00* Test Item Value Reference Range Comments CYTOLOGY RESULT POINTER (BEAKER) (test gteg=2526) See Separate Report FINE NEEDLE ASPIRATE (FNA) [id number] 15:01:00* Test Item Value Reference Range Comments CYTOLOGY RESULT POINTER (BEAKER) (test tvhg=4128) See Separate Report POCT-GLUCOSE [id number] 14:25:00* Test Item Value Reference Range Comments POC-GLUCOSE METER (BEAKER) (test xjry=2236) 106 mg/dL 70-110 TESTED AT [facility] [address] [facility] [address] POCT-GLUCOSE [id number] 08:53:00* Test Item Value Reference Range Comments POC-GLUCOSE METER (BEAKER) (test zznj=7990) 106 mg/dL 70-110 TESTED AT [place] [address] [facility] [address] COMPREHENSIVE METABOLIC [id number] 08:25:00* Test Item Value Reference Range Comments TOTAL PROTEIN (BEAKER) (test jzoe=187) 5.6 gm/dL 6.0-8.3 ALBUMIN (BEAKER) (test fxun=8368) 3.3 g/dL 3.5-5.0 ALKALINE PHOSPHATASE (BEAKER) (test vqpc=098) 55 U/L 40-150 BILIRUBIN TOTAL (BEAKER) (test qzqr=826) 0.6 mg/dL 0.2-1.2 SODIUM (BEAKER) (test ccgc=223) 134 meq/L 136-145 POTASSIUM (BEAKER) (test idcu=977) 3.9 meq/L 3.5-5.1 CHLORIDE (BEAKER) (test arju=337) 104 meq/L 98-107 CO2 (BEAKER) (test lwzj=768) 25 meq/L 22-29 BLOOD UREA NITROGEN (BEAKER) (test cevr=810) 24 mg/dL 7-21 CREATININE (BEAKER) (test oznj=768) 0.64 mg/dL 0.57-1.25 GLUCOSE RANDOM (BEAKER) (test lhtp=085) 111 mg/dL 70-105 CALCIUM (BEAKER) (test qhkg=119) 8.2 mg/dL 8.4-10.2 AST (SGOT) (BEAKER) (test yivi=025) 11 U/L 5-34 ALT (SGPT) (BEAKER) (test gxtv=915) 21 U/L 6-55 EGFR (BEAKER) (test ydct=9318) mL/min/1.73 sq m INSUFFICIENT CLINICAL DATA TO CALCULATE ESTIMATED GFR. BASIC METABOLIC [id number] 08:24:00* Test Item Value Reference Range Comments SODIUM (BEAKER) (test xdpy=208) 134 meq/L 136-145 POTASSIUM (BEAKER) (test gima=539) 3.9 meq/L 3.5-5.1 CHLORIDE (BEAKER) (test vykc=188) 104 meq/L 98-107 CO2 (BEAKER) (test qbky=698) 25 meq/L 22-29 BLOOD UREA NITROGEN (BEAKER) (test zugx=737) 24 mg/dL 7-21 CREATININE (BEAKER) (test qmvc=896) 0.64 mg/dL 0.57-1.25 GLUCOSE RANDOM (BEAKER) (test ukuh=803) 111 mg/dL 70-105 CALCIUM (BEAKER) (test dbnq=485) 8.2 mg/dL 8.4-10.2 EGFR (BEAKER) (test nzmo=6012) mL/min/1.73 sq m INSUFFICIENT CLINICAL DATA TO CALCULATE ESTIMATED GFR. [id number] 05:42:00* Test Item Value Reference Range Comments PARTIAL THROMBOPLASTIN TIME (BEAKER) (test pedc=571) 30.8 seconds 22.5-36.0 PROTHROMBIN TIME/[id number] 05:41:00* Test Item Value Reference Range Comments PROTIME (BEAKER) (test rjlh=007) 13.9 seconds 11.9-14.2 INR (BEAKER) (test reuc=441) 1.1 <=5.9 Effective 11/13/2018: PT Reference Range ChangeNew: 11.9-14.2 Previous: 11.7-14. 7RECOMMENDED COUMADIN/WARFARIN INR THERAPY RANGESSTANDARD DOSE: 2.0-3.0 Include s: PROPHYLAXIS for venous thrombosis, systemic embolization; TREATMENT for venou s thrombosis and/or pulmonary embolus.HIGH RISK: Target INR is 2.5-3.5 for patie nts wiht mechanical heart valves.CBC W/PLT COUNT & AUTO [id number] 05:35:00* Test Item Value Reference Range Comments WHITE BLOOD CELL COUNT (BEAKER) (test vlgq=356) 7.8 K/ L 3.5-10.5 RED BLOOD CELL COUNT (BEAKER) (test ftdd=024) 3.72 M/ L 4.63-6.08 HEMOGLOBIN (BEAKER) (test yspo=224) 12.3 GM/DL 13.7-17.5 HEMATOCRIT (BEAKER) (test cupw=031) 36.3 % 40.1-51.0 MEAN CORPUSCULAR VOLUME (BEAKER) (test nbko=224) 97.6 fL 79.0-92.2 MEAN CORPUSCULAR HEMOGLOBIN (BEAKER) (test ftld=213) 33.1 pg 25.7-32.2 MEAN CORPUSCULAR HEMOGLOBIN CONC (BEAKER) (test xsja=570) 33.9 GM/DL 32.3-36.5 RED CELL DISTRIBUTION WIDTH (BEAKER) (test azuq=999) 12.1 % 11.6-14.4 PLATELET COUNT (BEAKER) (test pifb=228) 296 K/CU MM 150-450 MEAN PLATELET VOLUME (BEAKER) (test ugat=356) 9.0 fL 9.4-12.4 NUCLEATED RED BLOOD CELLS (BEAKER) (test gfja=418) 0 /100 WBC 0-0 NEUTROPHILS RELATIVE PERCENT (BEAKER) (test qdgs=195) 78 % LYMPHOCYTES RELATIVE PERCENT (BEAKER) (test heib=174) 17 % MONOCYTES RELATIVE PERCENT (BEAKER) (test ybcq=114) 5 % EOSINOPHILS RELATIVE PERCENT (BEAKER) (test fxdn=445) 0 % BASOPHILS RELATIVE PERCENT (BEAKER) (test wkln=835) 0 % NEUTROPHILS ABSOLUTE COUNT (BEAKER) (test gvut=595) 6.12 K/ L 1.78-5.38 LYMPHOCYTES ABSOLUTE COUNT (BEAKER) (test ibrb=156) 1.32 K/ L 1.32-3.57 MONOCYTES ABSOLUTE COUNT (BEAKER) (test sfyw=073) 0.35 K/ L 0.30-0.82 EOSINOPHILS ABSOLUTE COUNT (BEAKER) (test xcvx=977) 0.00 K/ L 0.04-0.54 BASOPHILS ABSOLUTE COUNT (BEAKER) (test jyte=452) 0.00 K/ L 0.01-0.08 IMMATURE GRANULOCYTES-RELATIVE PERCENT (BEAKER) (test dmax=9038) 1 % 0-1 POCT-GLUCOSE [id number] 21:40:00* Test Item Value Reference Range Comments POC-GLUCOSE METER (BEAKER) (test ilcj=9980) 142 mg/dL 70-110 TESTED AT [facility] [address] [facility] [address] POCT-GLUCOSE [id number] 17:50:00* Test Item Value Reference Range Comments POC-GLUCOSE METER (BEAKER) (test zdqd=2468) 160 mg/dL 70-110 TESTED AT [place] [id number] [facility] [address] POCT-GLUCOSE [id number] 12:17:00* Test Item Value Reference Range Comments POC-GLUCOSE METER (BEAKER) (test ovnv=9146) 120 mg/dL 70-110 TESTED AT [address] [address] POCT-GLUCOSE [id number] 09:25:00* Test Item Value Reference Range Comments POC-GLUCOSE METER (BEAKER) (test ueoa=1126) 112 mg/dL 70-110 TESTED AT [address] [address] BASIC METABOLIC [id number] 08:32:00* Test Item Value Reference Range Comments SODIUM (BEAKER) (test yhhm=128) 133 meq/L 136-145 POTASSIUM (BEAKER) (test bpbu=977) 4.0 meq/L 3.5-5.1 CHLORIDE (BEAKER) (test ekci=869) 103 meq/L 98-107 CO2 (BEAKER) (test iqnf=392) 22 meq/L 22-29 BLOOD UREA NITROGEN (BEAKER) (test svgb=587) 25 mg/dL 7-21 CREATININE (BEAKER) (test jjld=155) 0.65 mg/dL 0.57-1.25 GLUCOSE RANDOM (BEAKER) (test nvdg=131) 104 mg/dL 70-105 CALCIUM (BEAKER) (test qpsr=604) 8.3 mg/dL 8.4-10.2 EGFR (BEAKER) (test ttuu=7091) mL/min/1.73 sq m INSUFFICIENT CLINICAL DATA TO CALCULATE ESTIMATED GFR. CBC W/PLT COUNT & AUTO [id number] 06:43:00* Test Item Value Reference Range Comments WHITE BLOOD CELL COUNT (BEAKER) (test kvgm=823) 8.9 K/ L 3.5-10.5 RED BLOOD CELL COUNT (BEAKER) (test fwsv=385) 3.72 M/ L 4.63-6.08 HEMOGLOBIN (BEAKER) (test pgsz=347) 12.1 GM/DL 13.7-17.5 HEMATOCRIT (BEAKER) (test xndm=411) 35.4 % 40.1-51.0 MEAN CORPUSCULAR VOLUME (BEAKER) (test wiid=416) 95.2 fL 79.0-92.2 MEAN CORPUSCULAR HEMOGLOBIN (BEAKER) (test miao=884) 32.5 pg 25.7-32.2 MEAN CORPUSCULAR HEMOGLOBIN CONC (BEAKER) (test vprf=718) 34.2 GM/DL 32.3-36.5 RED CELL DISTRIBUTION WIDTH (BEAKER) (test hsjy=299) 12.3 % 11.6-14.4 PLATELET COUNT (BEAKER) (test gzka=683) 296 K/CU MM 150-450 MEAN PLATELET VOLUME (BEAKER) (test uhuu=912) 9.5 fL 9.4-12.4 NUCLEATED RED BLOOD CELLS (BEAKER) (test qcot=125) 0 /100 WBC 0-0 NEUTROPHILS RELATIVE PERCENT (BEAKER) (test blgz=353) 78 % LYMPHOCYTES RELATIVE PERCENT (BEAKER) (test iqfv=292) 16 % MONOCYTES RELATIVE PERCENT (BEAKER) (test qrtk=591) 5 % EOSINOPHILS RELATIVE PERCENT (BEAKER) (test kowa=217) 0 % BASOPHILS RELATIVE PERCENT (BEAKER) (test awvi=856) 0 % NEUTROPHILS ABSOLUTE COUNT (BEAKER) (test yvlq=096) 6.94 K/ L 1.78-5.38 LYMPHOCYTES ABSOLUTE COUNT (BEAKER) (test dwfc=100) 1.44 K/ L 1.32-3.57 MONOCYTES ABSOLUTE COUNT (BEAKER) (test elym=178) 0.42 K/ L 0.30-0.82 EOSINOPHILS ABSOLUTE COUNT (BEAKER) (test brqj=013) 0.01 K/ L 0.04-0.54 BASOPHILS ABSOLUTE COUNT (BEAKER) (test psqx=301) 0.01 K/ L 0.01-0.08 IMMATURE GRANULOCYTES-RELATIVE PERCENT (BEAKER) (test tetb=0222) 1 % 0-1 POCT-GLUCOSE [id number] 20:33:00* Test Item Value Reference Range Comments POC-GLUCOSE METER (BEAKER) (test mtpv=6635) 152 mg/dL 70-110 TESTED AT [facility] [address] [facility] [address] POCT-GLUCOSE [id number] 15:14:00* Test Item Value Reference Range Comments POC-GLUCOSE METER (BEAKER) (test lsfe=8866) 99 mg/dL 70-110 TESTED AT [facility] [address] [facility] [address] BRONCHIAL CULTURE + GRAM [id number] 14:50:00* Test Item Value Reference Range Comments CULTURE (BEAKER) (test cncz=7409) 3+ Normal respiratory selam present GRAM STAIN RESULT (BEAKER) (test eyvq=9717) <1+ WBCs GRAM STAIN RESULT (BEAKER) (test kqsj=38907) No organisms seen SPIN/CONCENTRATION [id number] 10:54:00* Test Item Value Reference Range Comments CONCENTRATION CHARGED (BEAKER) (test yvrd=5583) Done POCT-GLUCOSE [id number] 09:12:00* Test Item Value Reference Range Comments POC-GLUCOSE METER (BEAKER) (test ycpx=5129) 89 mg/dL 70-110 TESTED AT [facility] [address] [facility] [address] BASIC METABOLIC [id number] 06:31:00* Test Item Value Reference Range Comments SODIUM (BEAKER) (test ldkj=952) 136 meq/L 136-145 POTASSIUM (BEAKER) (test xymi=917) 4.0 meq/L 3.5-5.1 CHLORIDE (BEAKER) (test wtbl=195) 104 meq/L 98-107 CO2 (BEAKER) (test qpmt=928) 25 meq/L 22-29 BLOOD UREA NITROGEN (BEAKER) (test nepc=501) 24 mg/dL 7-21 CREATININE (BEAKER) (test iqlf=357) 0.64 mg/dL 0.57-1.25 GLUCOSE RANDOM (BEAKER) (test bxwg=071) 105 mg/dL 70-105 CALCIUM (BEAKER) (test ndyp=741) 8.8 mg/dL 8.4-10.2 EGFR (BEAKER) (test lals=2883) mL/min/1.73 sq m INSUFFICIENT CLINICAL DATA TO CALCULATE ESTIMATED GFR. CBC W/PLT COUNT & AUTO [id number] 06:11:00* Test Item Value Reference Range Comments WHITE BLOOD CELL COUNT (BEAKER) (test zosb=707) 9.7 K/ L 3.5-10.5 RED BLOOD CELL COUNT (BEAKER) (test lcxg=470) 3.87 M/ L 4.63-6.08 HEMOGLOBIN (BEAKER) (test zgwd=756) 12.5 GM/DL 13.7-17.5 HEMATOCRIT (BEAKER) (test rysz=433) 36.6 % 40.1-51.0 MEAN CORPUSCULAR VOLUME (BEAKER) (test luqb=030) 94.6 fL 79.0-92.2 MEAN CORPUSCULAR HEMOGLOBIN (BEAKER) (test hyvu=779) 32.3 pg 25.7-32.2 MEAN CORPUSCULAR HEMOGLOBIN CONC (BEAKER) (test ufib=088) 34.2 GM/DL 32.3-36.5 RED CELL DISTRIBUTION WIDTH (BEAKER) (test fcsw=046) 12.0 % 11.6-14.4 PLATELET COUNT (BEAKER) (test xsjg=866) 296 K/CU MM 150-450 MEAN PLATELET VOLUME (BEAKER) (test awqk=459) 9.1 fL 9.4-12.4 NUCLEATED RED BLOOD CELLS (BEAKER) (test kmnj=608) 0 /100 WBC 0-0 NEUTROPHILS RELATIVE PERCENT (BEAKER) (test rdkh=181) 77 % LYMPHOCYTES RELATIVE PERCENT (BEAKER) (test kmvp=515) 16 % MONOCYTES RELATIVE PERCENT (BEAKER) (test slax=130) 7 % EOSINOPHILS RELATIVE PERCENT (BEAKER) (test fpcf=410) 0 % BASOPHILS RELATIVE PERCENT (BEAKER) (test zmlr=822) 0 % NEUTROPHILS ABSOLUTE COUNT (BEAKER) (test dqyo=620) 7.45 K/ L 1.78-5.38 LYMPHOCYTES ABSOLUTE COUNT (BEAKER) (test hkew=037) 1.50 K/ L 1.32-3.57 MONOCYTES ABSOLUTE COUNT (BEAKER) (test zcbl=115) 0.64 K/ L 0.30-0.82 EOSINOPHILS ABSOLUTE COUNT (BEAKER) (test tzxf=779) 0.02 K/ L 0.04-0.54 BASOPHILS ABSOLUTE COUNT (BEAKER) (test xgxe=468) 0.01 K/ L 0.01-0.08 IMMATURE GRANULOCYTES-RELATIVE PERCENT (BEAKER) (test nzat=7818) 0 % 0-1 POCT-GLUCOSE [id number] 21:15:00* Test Item Value Reference Range Comments POC-GLUCOSE METER (BEAKER) (test sfpj=0105) 173 mg/dL 70-110 TESTED AT [facility] [address] [facility] [address] POCT-GLUCOSE [id number] 17:24:00* Test Item Value Reference Range Comments POC-GLUCOSE METER (BEAKER) (test ylxj=0175) 110 mg/dL 70-110 TESTED AT [facility] [address] [facility] [address] BASIC METABOLIC [id number] 15:15:00* Test Item Value Reference Range Comments SODIUM (BEAKER) (test vknf=278) 134 meq/L 136-145 POTASSIUM (BEAKER) (test mqzc=548) 3.7 meq/L 3.5-5.1 CHLORIDE (BEAKER) (test gquv=724) 101 meq/L 98-107 CO2 (BEAKER) (test qtxd=717) 25 meq/L 22-29 BLOOD UREA NITROGEN (BEAKER) (test mtck=516) 26 mg/dL 7-21 CREATININE (BEAKER) (test utgf=010) 0.68 mg/dL 0.57-1.25 GLUCOSE RANDOM (BEAKER) (test nfgm=575) 118 mg/dL 70-105 CALCIUM (BEAKER) (test twxl=037) 8.7 mg/dL 8.4-10.2 EGFR (BEAKER) (test icpj=3194) mL/min/1.73 sq m INSUFFICIENT CLINICAL DATA TO CALCULATE ESTIMATED GFR. CBC W/PLT COUNT & AUTO [id number] 14:56:00* Test Item Value Reference Range Comments WHITE BLOOD CELL COUNT (BEAKER) (test xotj=240) 11.0 K/ L 3.5-10.5 RED BLOOD CELL COUNT (BEAKER) (test qkbp=109) 3.97 M/ L 4.63-6.08 HEMOGLOBIN (BEAKER) (test gpib=095) 13.0 GM/DL 13.7-17.5 HEMATOCRIT (BEAKER) (test hirz=821) 37.2 % 40.1-51.0 MEAN CORPUSCULAR VOLUME (BEAKER) (test gqzq=600) 93.7 fL 79.0-92.2 MEAN CORPUSCULAR HEMOGLOBIN (BEAKER) (test nkwp=738) 32.7 pg 25.7-32.2 MEAN CORPUSCULAR HEMOGLOBIN CONC (BEAKER) (test bvvm=040) 34.9 GM/DL 32.3-36.5 RED CELL DISTRIBUTION WIDTH (BEAKER) (test xygl=398) 12.0 % 11.6-14.4 PLATELET COUNT (BEAKER) (test unxo=916) 296 K/CU MM 150-450 MEAN PLATELET VOLUME (BEAKER) (test eqoo=219) 9.3 fL 9.4-12.4 NUCLEATED RED BLOOD CELLS (BEAKER) (test gntv=395) 0 /100 WBC 0-0 NEUTROPHILS RELATIVE PERCENT (BEAKER) (test jwkq=422) 71 % LYMPHOCYTES RELATIVE PERCENT (BEAKER) (test nlze=541) 18 % MONOCYTES RELATIVE PERCENT (BEAKER) (test onhb=289) 10 % EOSINOPHILS RELATIVE PERCENT (BEAKER) (test csba=466) 1 % BASOPHILS RELATIVE PERCENT (BEAKER) (test fmbt=486) 0 % NEUTROPHILS ABSOLUTE COUNT (BEAKER) (test defw=046) 7.81 K/ L 1.78-5.38 LYMPHOCYTES ABSOLUTE COUNT (BEAKER) (test ybbi=153) 1.99 K/ L 1.32-3.57 MONOCYTES ABSOLUTE COUNT (BEAKER) (test gtcj=655) 1.08 K/ L 0.30-0.82 EOSINOPHILS ABSOLUTE COUNT (BEAKER) (test cqew=989) 0.05 K/ L 0.04-0.54 BASOPHILS ABSOLUTE COUNT (BEAKER) (test hadj=486) 0.01 K/ L 0.01-0.08 IMMATURE GRANULOCYTES-RELATIVE PERCENT (BEAKER) (test styf=0059) 0 % 0-1 POCT-GLUCOSE [id number] 11:54:00* Test Item Value Reference Range Comments POC-GLUCOSE METER (BEAKER) (test nnrk=1800) 153 mg/dL 70-110 TESTED AT [address] [address] POCT-GLUCOSE [id number] 08:07:00* Test Item Value Reference Range Comments POC-GLUCOSE METER (BEAKER) (test vfil=4126) 102 mg/dL 70-110 TESTED AT [address] [address] POCT-GLUCOSE [id number] 21:47:00* Test Item Value Reference Range Comments POC-GLUCOSE METER (BEAKER) (test rnfl=7043) 133 mg/dL 70-110 TESTED AT [address] [address] [address], CHEST, WITHOUT [id number] 19:04:00VERAN PROTOCOL - PERFORM withOUT LOCALIZER TAPED TO PATIENT. THIN CUT CT Reason for exam:->JORDAN BRONCHFINAL REPORT CT of the Chest dated 11/22/2018 COMPARISON: November 17, 2018 CLINICAL INFORMATION: JORDAN BRONCH Comment: Axial images of the chest were obtained from thoracic inlet to the upper abdomen without intravenous con trast. This exam was performed according to our departmental dose-optimizati on program, which includes automated exposure control, adjustment of the mA and/ or kV according to patient size and/or use of interactive reconstruction technSimulated Surgical Systems ue. Heart is normal in size. Atherosclerotic calcification is seen in the thorac ic aorta and coronary arteries. Great vessels are unremarkable. No adenopathy in the mediastinum or perihilar region. Trachea and mainstem bronchi are patent. There is mild to moderate pulmonary emphysema. A 2.8 x 4.7 cm spiculated mass is seen in the right upper lobe. A 5 mm nodule is seen in the peripheral of the ri ght upper lobe. Nonspecific interstitial pulmonary disease is seen in the right upper lobe with thickened interlobar septi. No pleural effusion or pleural based mass is seen. Visualized upper abdomen demonstrates no focal lesion. Impression: Spicule mass and nodular lesion in the right upper lobe. Signed: Marcelo Boyd Verified Date/Time: 11/22/2018 19:04:17 Reading Location: [facility] B1 C013Y CT Body Reading Room Electronically signed by: MARCELO BOYD M.D. on 2018 07:04 PM SPIN/CONCENTRATION [id number] 13:25:00* Test Item Value Reference Range Comments CONCENTRATION CHARGED (BEAKER) (test lbvp=7156) Done POCT-GLUCOSE [id number] 10:57:00* Test Item Value Reference Range Comments POC-GLUCOSE METER (BEAKER) (test ykbu=0843) 128 mg/dL 70-110 TESTED AT [facility] [address] [facility] [address] EBUS FNA [id number] 10:00:00* Test Item Value Reference Range Comments CYTOLOGY RESULT POINTER (BEAKER) (test sybl=5835) See Separate Report CYTOLOGY [id number] 10:00:00* Test Item Value Reference Range Comments CYTOLOGY RESULT POINTER (BEAKER) (test puep=2035) See Separate Report EBUS FNA [id number] 10:00:00* Test Item Value Reference Range Comments CYTOLOGY RESULT POINTER (BEAKER) (test kvta=6665) See Separate Report POCT-GLUCOSE [id number] 18:02:00* Test Item Value Reference Range Comments POC-GLUCOSE METER (BEAKER) (test ihyl=5033) 145 mg/dL 70-110 TESTED AT [place] [id number] [facility] [address] POCT-GLUCOSE [id number] 12:46:00* Test Item Value Reference Range Comments POC-GLUCOSE METER (BEAKER) (test buqn=8017) 122 mg/dL 70-110 TESTED AT [address] [address] POCT-GLUCOSE [id number] 09:40:00* Test Item Value Reference Range Comments POC-GLUCOSE METER (BEAKER) (test zgtn=6248) 112 mg/dL 70-110 TESTED AT [address] [address] BASIC METABOLIC [id number] 06:47:00* Test Item Value Reference Range Comments SODIUM (BEAKER) (test yxip=573) 129 meq/L 136-145 POTASSIUM (BEAKER) (test ibnf=667) 3.7 meq/L 3.5-5.1 CHLORIDE (BEAKER) (test zyax=480) 95 meq/L 98-107 CO2 (BEAKER) (test gkhd=680) 25 meq/L 22-29 BLOOD UREA NITROGEN (BEAKER) (test nrtu=267) 18 mg/dL 7-21 CREATININE (BEAKER) (test gkky=142) 0.71 mg/dL 0.57-1.25 GLUCOSE RANDOM (BEAKER) (test xema=272) 113 mg/dL 70-105 CALCIUM (BEAKER) (test xvdn=097) 9.1 mg/dL 8.4-10.2 EGFR (BEAKER) (test elfy=2960) mL/min/1.73 sq m INSUFFICIENT CLINICAL DATA TO CALCULATE ESTIMATED GFR. CBC W/PLT COUNT & AUTO [id number] 05:23:00* Test Item Value Reference Range Comments WHITE BLOOD CELL COUNT (BEAKER) (test kpuc=006) 9.4 K/ L 3.5-10.5 RED BLOOD CELL COUNT (BEAKER) (test zdva=949) 4.09 M/ L 4.63-6.08 HEMOGLOBIN (BEAKER) (test gzzt=356) 13.6 GM/DL 13.7-17.5 HEMATOCRIT (BEAKER) (test esyj=507) 37.4 % 40.1-51.0 MEAN CORPUSCULAR VOLUME (BEAKER) (test fuhv=622) 91.4 fL 79.0-92.2 MEAN CORPUSCULAR HEMOGLOBIN (BEAKER) (test gazw=008) 33.3 pg 25.7-32.2 MEAN CORPUSCULAR HEMOGLOBIN CONC (BEAKER) (test ptek=416) 36.4 GM/DL 32.3-36.5 RED CELL DISTRIBUTION WIDTH (BEAKER) (test xxxx=290) 11.9 % 11.6-14.4 PLATELET COUNT (BEAKER) (test kyvt=810) 329 K/CU MM 150-450 MEAN PLATELET VOLUME (BEAKER) (test dutm=494) 9.0 fL 9.4-12.4 NUCLEATED RED BLOOD CELLS (BEAKER) (test qbhn=165) 0 /100 WBC 0-0 NEUTROPHILS RELATIVE PERCENT (BEAKER) (test dohs=906) 76 % LYMPHOCYTES RELATIVE PERCENT (BEAKER) (test ckso=068) 17 % MONOCYTES RELATIVE PERCENT (BEAKER) (test ouud=399) 7 % EOSINOPHILS RELATIVE PERCENT (BEAKER) (test dszs=588) 0 % BASOPHILS RELATIVE PERCENT (BEAKER) (test ncmc=438) 0 % NEUTROPHILS ABSOLUTE COUNT (BEAKER) (test rtcm=739) 7.10 K/ L 1.78-5.38 LYMPHOCYTES ABSOLUTE COUNT (BEAKER) (test legi=656) 1.58 K/ L 1.32-3.57 MONOCYTES ABSOLUTE COUNT (BEAKER) (test dtng=592) 0.63 K/ L 0.30-0.82 EOSINOPHILS ABSOLUTE COUNT (BEAKER) (test wwlg=320) 0.01 K/ L 0.04-0.54 BASOPHILS ABSOLUTE COUNT (BEAKER) (test mbup=310) 0.01 K/ L 0.01-0.08 IMMATURE GRANULOCYTES-RELATIVE PERCENT (BEAKER) (test voew=0574) 0 % 0-1 POCT-GLUCOSE [id number] 21:49:00* Test Item Value Reference Range Comments POC-GLUCOSE METER (BEAKER) (test rktj=4961) 128 mg/dL 70-110 TESTED AT [facility] [address] [facility] [address] POCT-GLUCOSE [id number] 17:19:00* Test Item Value Reference Range Comments POC-GLUCOSE METER (BEAKER) (test qdsc=4834) 114 mg/dL 70-110 TESTED AT [address] [address] POCT-GLUCOSE [id number] 11:38:00* Test Item Value Reference Range Comments POC-GLUCOSE METER (BEAKER) (test ftcq=6632) 111 mg/dL 70-110 TESTED AT [address] [address] POCT-GLUCOSE [id number] 08:06:00* Test Item Value Reference Range Comments POC-GLUCOSE METER (BEAKER) (test wltr=1978) 120 mg/dL 70-110 TESTED AT [address] [address] BASIC METABOLIC [id number] 07:28:00* Test Item Value Reference Range Comments SODIUM (BEAKER) (test lqbk=793) 129 meq/L 136-145 POTASSIUM (BEAKER) (test brzc=856) 4.0 meq/L 3.5-5.1 CHLORIDE (BEAKER) (test faxo=048) 97 meq/L 98-107 CO2 (BEAKER) (test otiq=995) 26 meq/L 22-29 BLOOD UREA NITROGEN (BEAKER) (test hpwk=204) 15 mg/dL 7-21 CREATININE (BEAKER) (test gogw=342) 0.70 mg/dL 0.57-1.25 GLUCOSE RANDOM (BEAKER) (test vwli=113) 130 mg/dL 70-105 CALCIUM (BEAKER) (test lucw=298) 9.0 mg/dL 8.4-10.2 EGFR (BEAKER) (test qwbi=9207) mL/min/1.73 sq m INSUFFICIENT CLINICAL DATA TO CALCULATE ESTIMATED GFR. Check Serum Phosphorus level 4 hours after IV phosphorus replacement or 8 hours after PO replacement completed.[id number] 07:27:00* Test Item Value Reference Range Comments PHOSPHORUS (BEAKER) (test qwag=196) 3.3 mg/dL 2.3-4.7 Check Serum Phosphorus level 4 hours after IV phosphorus replacement or 8 hours after PO replacement completed.[id number] 07:27:00* Test Item Value Reference Range Comments MAGNESIUM (BEAKER) (test rwqb=062) 2.1 mg/dL 1.6-2.6 Check Serum Phosphorus level 4 hours after IV phosphorus replacement or 8 hours after PO replacement completed.CBC W/PLT COUNT & AUTO [id number] 06:03:00* Test Item Value Reference Range Comments WHITE BLOOD CELL COUNT (BEAKER) (test scet=776) 10.2 K/ L 3.5-10.5 RED BLOOD CELL COUNT (BEAKER) (test xrlf=354) 3.93 M/ L 4.63-6.08 HEMOGLOBIN (BEAKER) (test zgil=404) 12.7 GM/DL 13.7-17.5 HEMATOCRIT (BEAKER) (test aqhb=414) 36.8 % 40.1-51.0 MEAN CORPUSCULAR VOLUME (BEAKER) (test ntam=995) 93.6 fL 79.0-92.2 MEAN CORPUSCULAR HEMOGLOBIN (BEAKER) (test ksip=026) 32.3 pg 25.7-32.2 MEAN CORPUSCULAR HEMOGLOBIN CONC (BEAKER) (test rqvj=155) 34.5 GM/DL 32.3-36.5 RED CELL DISTRIBUTION WIDTH (BEAKER) (test egxb=095) 11.9 % 11.6-14.4 PLATELET COUNT (BEAKER) (test htzn=839) 328 K/CU MM 150-450 MEAN PLATELET VOLUME (BEAKER) (test sofz=318) 9.3 fL 9.4-12.4 NUCLEATED RED BLOOD CELLS (BEAKER) (test vcoo=107) 0 /100 WBC 0-0 NEUTROPHILS RELATIVE PERCENT (BEAKER) (test jjub=124) 85 % LYMPHOCYTES RELATIVE PERCENT (BEAKER) (test sest=346) 10 % MONOCYTES RELATIVE PERCENT (BEAKER) (test mydq=878) 5 % EOSINOPHILS RELATIVE PERCENT (BEAKER) (test cnrv=485) 0 % BASOPHILS RELATIVE PERCENT (BEAKER) (test ggol=855) 0 % NEUTROPHILS ABSOLUTE COUNT (BEAKER) (test hcuk=010) 8.61 K/ L 1.78-5.38 LYMPHOCYTES ABSOLUTE COUNT (BEAKER) (test qbqv=010) 0.97 K/ L 1.32-3.57 MONOCYTES ABSOLUTE COUNT (BEAKER) (test ngpy=557) 0.55 K/ L 0.30-0.82 EOSINOPHILS ABSOLUTE COUNT (BEAKER) (test oqyc=425) 0.00 K/ L 0.04-0.54 BASOPHILS ABSOLUTE COUNT (BEAKER) (test wtgq=407) 0.01 K/ L 0.01-0.08 IMMATURE GRANULOCYTES-RELATIVE PERCENT (BEAKER) (test agwu=1788) 0 % 0-1 [id number] 05:57:00* Test Item Value Reference Range Comments PROTIME (BEAKER) (test ysjv=616) 13.7 seconds 11.9-14.2 INR (BEAKER) (test zeql=062) 1.1 <=5.9 PARTIAL THROMBOPLASTIN TIME (BEAKER) (test jpkm=690) 32.4 seconds 22.5-36.0 Effective 11/13/2018: PT Reference Range ChangeNew: 11.9-14.2 Previous: 11.7-14. 7RECOMMENDED COUMADIN/WARFARIN INR THERAPY RANGESSTANDARD DOSE: 2.0-3.0 Include s: PROPHYLAXIS for venous thrombosis, systemic embolization; TREATMENT for venou s thrombosis and/or pulmonary embolus.HIGH RISK: Target INR is 2.5-3.5 for patie nts wiht mechanical heart valves.SPIN/CONCENTRATION [id number] 04:24:00* Test Item Value Reference Range Comments CONCENTRATION CHARGED (BEAKER) (test xwzi=5656) Done POCT-GLUCOSE [id number] 21:59:00* Test Item Value Reference Range Comments POC-GLUCOSE METER (BEAKER) (test nbql=1664) 209 mg/dL 70-110 TESTED AT [facility] [address] [facility] [address] POCT-GLUCOSE [id number] 17:46:00* Test Item Value Reference Range Comments POC-GLUCOSE METER (BEAKER) (test rtrp=6835) 157 mg/dL 70-110 TESTED AT [facility] [address] [facility] [address] BONE AND/OR JOINT IMAGING, WHOLE [id number] 17:29:00FINAL REPORT PROCEDURE: BONE SCAN, WHOLE BODY CPT CODE: 88111 INDICATION: Lung mass, neoplasm within the head, chest, and abdomen. PROTOCOL: 21.4 mCi of Tc-99m MDP was injected intravenously. Whole body and selected spot images were obtained approximately 3 hours later. FINDINGS: Mild, focally increased radiotracer uptake at the costochondral junction of the left sixth rib, right first metatarsophalangeal joint, shoulders, sternoclavicular, and sacroiliac joints. IMPRESSION: No evidence of bony meta static disease.Degenerative changes within the left sixth rib and peripheral alvaro nts. Images for comparison/correlation were obtained from CT of the chest, abdo men, and pelvis dated 11/17/2018. Signed: Rich Lara MDReport Verified Date/Quinton e: 11/19/2018 17:29:03 Reading Location: [address] [place] [facility] -GLUCOSE [id number] 12:27:00* Test Item Value Reference Range Comments POC-GLUCOSE METER (BEAKER) (test zvwl=0352) 128 mg/dL 70-110 TESTED AT [address] [address] POCT-GLUCOSE [id number] 06:30:00* Test Item Value Reference Range Comments POC-GLUCOSE METER (BEAKER) (test xyrm=9715) 141 mg/dL 70-110 TESTED AT [address] [address] CBC W/PLT COUNT & AUTO [id number] 04:39:00* Test Item Value Reference Range Comments WHITE BLOOD CELL COUNT (BEAKER) (test fqbx=105) 11.5 K/ L 3.5-10.5 RED BLOOD CELL COUNT (BEAKER) (test tdvx=651) 3.59 M/ L 4.63-6.08 HEMOGLOBIN (BEAKER) (test yipj=511) 11.8 GM/DL 13.7-17.5 HEMATOCRIT (BEAKER) (test hvfb=687) 34.2 % 40.1-51.0 MEAN CORPUSCULAR VOLUME (BEAKER) (test ojfv=733) 95.3 fL 79.0-92.2 MEAN CORPUSCULAR HEMOGLOBIN (BEAKER) (test fylr=904) 32.9 pg 25.7-32.2 MEAN CORPUSCULAR HEMOGLOBIN CONC (BEAKER) (test uydp=126) 34.5 GM/DL 32.3-36.5 RED CELL DISTRIBUTION WIDTH (BEAKER) (test swlc=604) 12.3 % 11.6-14.4 PLATELET COUNT (BEAKER) (test geoa=473) 309 K/CU MM 150-450 MEAN PLATELET VOLUME (BEAKER) (test rtjf=426) 9.2 fL 9.4-12.4 NUCLEATED RED BLOOD CELLS (BEAKER) (test kexl=976) 0 /100 WBC 0-0 NEUTROPHILS RELATIVE PERCENT (BEAKER) (test hesq=009) 90 % LYMPHOCYTES RELATIVE PERCENT (BEAKER) (test vbel=665) 7 % MONOCYTES RELATIVE PERCENT (BEAKER) (test csss=858) 3 % EOSINOPHILS RELATIVE PERCENT (BEAKER) (test feee=660) 0 % BASOPHILS RELATIVE PERCENT (BEAKER) (test rniy=992) 0 % NEUTROPHILS ABSOLUTE COUNT (BEAKER) (test ehar=613) 10.30 K/ L 1.78-5.38 LYMPHOCYTES ABSOLUTE COUNT (BEAKER) (test vxcg=975) 0.75 K/ L 1.32-3.57 MONOCYTES ABSOLUTE COUNT (BEAKER) (test jpus=040) 0.36 K/ L 0.30-0.82 EOSINOPHILS ABSOLUTE COUNT (BEAKER) (test neri=509) 0.00 K/ L 0.04-0.54 BASOPHILS ABSOLUTE COUNT (BEAKER) (test rctz=145) 0.01 K/ L 0.01-0.08 IMMATURE GRANULOCYTES-RELATIVE PERCENT (BEAKER) (test qywe=9239) 1 % 0-1 BASIC METABOLIC [id number] 04:34:00* Test Item Value Reference Range Comments SODIUM (BEAKER) (test kkqb=657) 133 meq/L 136-145 POTASSIUM (BEAKER) (test airo=518) 4.5 meq/L 3.5-5.1 CHLORIDE (BEAKER) (test fcla=457) 105 meq/L 98-107 CO2 (BEAKER) (test fpzv=608) 22 meq/L 22-29 BLOOD UREA NITROGEN (BEAKER) (test budu=914) 16 mg/dL 7-21 CREATININE (BEAKER) (test cxun=978) 0.71 mg/dL 0.57-1.25 GLUCOSE RANDOM (BEAKER) (test qxur=926) 145 mg/dL 70-105 CALCIUM (CHAUNCEY) (test yhmm=737) 9.0 mg/dL 8.4-10.2 EGFR (CHAUNCEY) (test gxbt=5341) mL/min/1.73 sq m INSUFFICIENT CLINICAL DATA TO CALCULATE ESTIMATED GFR. Check Serum Phosphorus level 4 hours after IV phosphorus replacement or 8 hours after PO replacement completed.[id number] 04:26:00* Test Item Value Reference Range Comments PHOSPHORUS (CHAUNCEY) (test syxc=284) 2.9 mg/dL 2.3-4.7 Check Serum Phosphorus level 4 hours after IV phosphorus replacement or 8 hours after PO replacement completed.[id number] 04:26:00* Test Item Value Reference Range Comments MAGNESIUM (CHAUNCEY) (test jakz=216) 2.0 mg/dL 1.6-2.6 Check Serum Phosphorus level 4 hours after IV phosphorus replacement or 8 hours after PO replacement completed.POCT-GLUCOSE [id number] 22:30:00* Test Item Value Reference Range Comments POC-GLUCOSE METER (CHAUNCEY) (test zicw=9861) 234 mg/dL 70-110 TESTED AT [facility] [address] [facility] [address] HIV-1 ANTIGEN WITH HIV-1/2 [id number] 20:20:00* Test Item Value Reference Range Comments HIV-1 ANTIGEN WITH HIV 1\\T\\2 ANTIBODY (2) (CHAUNCEY) (test anqb=2000) Nonreactive Nonreactive MR, BRAIN, [id number] 19:52:00Stealth protocol - 1mm cuts, zero gantry, include noseTO BE PERFORMED WITH ANESTHESIAFINAL REPORT MR, BRAIN, WITH \\T\\ WITHOUT CONTRAST INDICATION: Neoplasm: head, ELECTION JUDGE, suspectedNeoplasm: head, metastatic, suspected Technique: MRI of the [...] (image 86), 7 mm right inferior temporal l esion (image 95), 5 mm left inferior frontal lesion (image 90) and 2.4 cm left t emporal lobe lesion (image 66). Several lesions demonstrate restricted diffusion . "Solid-appearing" restricted diffusion within the right posterior frontal lesi on, right thalamic lesion and the left temporal lobe lesion are noted, which, in the appropriate clinical setting, may represent sequela of intracranial abscess. Several lesions do not demonstrate this appearance and demonstrates restricted diffusion along the periphery corresponding to regions of nodular enhancement T here is slight effacement of the right lateral ventricle due to aforementioned t halamic lesion. No hydrocephalus. Orbits are within normal limits. No obstructiv e paranasal sinus disease. Additional findings: None. IMPRESSION: Multiple isaiah pherally enhancing lesions within the supratentorial parenchyma as per above. So me of these demonstrate uniform restricted diffusion, and, in the appropriate cl inical setting, may represent intracranial abscesses. However, intracranial meta stases remain the leading differential consideration. No significant midline annalisa ft secondary to aforementioned disease. There is mild effacement of the right la teral ventricle due to lesion within the right thalamus as per above without hyd rocephalus or left ventricular entrapment. Signed: Henry Suarez MDReport Veri fied Date/Time: 11/18/2018 19:52:30 Reading Location: [facility] Electronically signed by: HENRY SUAREZ MD on 9 07:52 PM POCT-GLUCOSE [id number] 18:38:00* Test Item Value Reference Range Comments POC-GLUCOSE METER (BEAKER) (test lvlw=3494) 142 mg/dL 70-110 TESTED AT [facility] [address] [facility] [address] POCT-GLUCOSE [id number] 12:07:00* Test Item Value Reference Range Comments POC-GLUCOSE METER (BEAKER) (test yzjf=9737) 110 mg/dL 70-110 TESTED AT [facility] [address] [facility] [address] EEG AWAKE AND [id number] 11:31:00Reason for exam:->c/f seizure NEUROPHYSIOLOGY SECTION: EEG REPORT懡Study: Patient: Jonny Lazcano [id number]: [id number] physician: George Gottlieb ICD10: R56.9CPT: [id number]: 11/18/18𒊃Total monitoring time: 30 minutes𐧿This is a digital EEG recorded with 32 input channels on a [employer] system and then reviewed with bipolar and referential montages using the modified combinatorial system nomenclature.┢DESCRIPTION OF RECORD: The posterior dominant rhythm is 8 hz and well regulated. Lower voltage 18-22 hz activity is present in the bilateral frontal regions. The background retains appropriate spontaneous variability. Drowsiness and sleep were not achieved. 𖜳Focal features: a. noneHyperventilation was not performed. Photic stimulation across a broad range of frequencies did not induce abnormal waveforms or responses. 걆ECG: regular, sinus rhythm𒖉ELECTROGRAPHIC/ELECTRO-CLINICAL EVENTS: b. NoneCLINICAL EVENTS:During orientation testing, the patient was oriented to time and city but not to the hospital. There were no electrographic correlates to any potential clinical confusion. Baseline awake patterns continued uninterrupted.IMPRESSION: NORMAL EEG IN WAKEFULNESSClinical correlation: The absence of epileptiform activity does not rule out the possibility of epilepsy. If clinically indicated, consider additional EEG recordings. 뤹Katy Brantley M.D., Ph.D.Epilepsy Attending -GLUCOSE [id number] 06:38:00* Test Item Value Reference Range Comments POC-GLUCOSE METER (BEAKER) (test mqpt=2193) 137 mg/dL 70-110 TESTED AT [address] [address] BASIC METABOLIC [id number] 04:43:00* Test Item Value Reference Range Comments SODIUM (BEAKER) (test kylj=486) 131 meq/L 136-145 POTASSIUM (BEAKER) (test lvmz=709) 4.4 meq/L 3.5-5.1 CHLORIDE (BEAKER) (test rcsd=067) 101 meq/L 98-107 CO2 (BEAKER) (test jzfe=099) 20 meq/L 22-29 BLOOD UREA NITROGEN (BEAKER) (test rxhu=637) 15 mg/dL 7-21 CREATININE (BEAKER) (test mnee=794) 0.71 mg/dL 0.57-1.25 GLUCOSE RANDOM (BEAKER) (test gvbx=241) 131 mg/dL 70-105 CALCIUM (BEAKER) (test pnac=980) 8.5 mg/dL 8.4-10.2 EGFR (BEAKER) (test gfir=5818) mL/min/1.73 sq m INSUFFICIENT CLINICAL DATA TO CALCULATE ESTIMATED GFR. CBC W/PLT COUNT & AUTO [id number] 04:38:00* Test Item Value Reference Range Comments WHITE BLOOD CELL COUNT (BEAKER) (test mjug=025) 10.9 K/ L 3.5-10.5 RED BLOOD CELL COUNT (BEAKER) (test rfey=273) 3.93 M/ L 4.63-6.08 HEMOGLOBIN (BEAKER) (test aayw=776) 13.0 GM/DL 13.7-17.5 HEMATOCRIT (BEAKER) (test vlll=997) 36.4 % 40.1-51.0 MEAN CORPUSCULAR VOLUME (BEAKER) (test lrom=073) 92.6 fL 79.0-92.2 MEAN CORPUSCULAR HEMOGLOBIN (BEAKER) (test dfsm=307) 33.1 pg 25.7-32.2 MEAN CORPUSCULAR HEMOGLOBIN CONC (BEAKER) (test tcio=501) 35.7 GM/DL 32.3-36.5 RED CELL DISTRIBUTION WIDTH (BEAKER) (test btth=863) 11.9 % 11.6-14.4 PLATELET COUNT (BEAKER) (test wnze=700) 368 K/CU MM 150-450 MEAN PLATELET VOLUME (BEAKER) (test iqty=243) 9.1 fL 9.4-12.4 NUCLEATED RED BLOOD CELLS (BEAKER) (test tqij=525) 0 /100 WBC 0-0 NEUTROPHILS RELATIVE PERCENT (BEAKER) (test zykv=212) 87 % LYMPHOCYTES RELATIVE PERCENT (BEAKER) (test olsa=137) 10 % MONOCYTES RELATIVE PERCENT (BEAKER) (test fimg=999) 3 % EOSINOPHILS RELATIVE PERCENT (BEAKER) (test becn=924) 0 % BASOPHILS RELATIVE PERCENT (BEAKER) (test aecx=360) 0 % NEUTROPHILS ABSOLUTE COUNT (BEAKER) (test rljo=203) 9.49 K/ L 1.78-5.38 LYMPHOCYTES ABSOLUTE COUNT (BEAKER) (test yram=371) 1.07 K/ L 1.32-3.57 MONOCYTES ABSOLUTE COUNT (BEAKER) (test awkp=367) 0.27 K/ L 0.30-0.82 EOSINOPHILS ABSOLUTE COUNT (BEAKER) (test deue=097) 0.00 K/ L 0.04-0.54 BASOPHILS ABSOLUTE COUNT (BEAKER) (test ipta=053) 0.00 K/ L 0.01-0.08 IMMATURE GRANULOCYTES-RELATIVE PERCENT (BEAKER) (test wshc=8624) 1 % 0-1 POCT-GLUCOSE [id number] 22:15:00* Test Item Value Reference Range Comments POC-GLUCOSE METER (BEAKER) (test ogeo=7447) 158 mg/dL 70-110 TESTED AT [facility] [address] [facility] [address] [address], CHEST, WITH [id number] 17:51:00FINAL REPORT TECHNIQUE: CT of the chest, abdomen, and pelvis WITH intravenous contrast and WITHOUT oral contrast. Dose modulation, iterative reconstruction, and/or weight- based adjustment of the mA/kV was utilized to [...] right on axial image 28 measures 0.5 cm.PLEURA: The pleural spaces are clear.HEART AND MEDIASTINUM: The visualized thyroid gland is [...] lesions. Gallbladder is unremarkable. No biliary ductal dilatation.SPLEEN: No splenomegaly.PANCREAS: No focal masses or ductal dilatation. ADRENALS: A hypodense left adrenal nodule measures 1.9 cm on axial image 62.KIDNEYS/URETERS: No hydronephrosis, stones, or solid mass lesions.PELVIC ORGANS/BLADDER: Unremarkable. PERITONEUM/RETROPERITONEUM: No free air or fluid.LYMPH NODES: No lymphadenopathy.VESSELS: Unremarkable. GI TRACT: The gastric wall is diffusely thickened. Mild diverticulosis of the sigmoid c olon. BONES AND SOFT TISSUES: Mild degenerative disc changes scattered throughou t the visualized spine. IMPRESSION: 1.A right upper lobe cavitary lesion measur es up to 5 cm and is highly concerning for malignancy. 2.The additional right up per lobe 0.5 cm nodule is indeterminate. 3.There are prominent lymph nodes in th e right perihilar and right lower paratracheal regions which are not enlarged by CT size criteria. 4.A left adrenal nodule measures 1.9 cm and is indeterminate but concerning for metastasis. Further evaluation with a CT of the abdomen with and without contrast, adrenal mass protocol, is recommended. 5.Moderate centrilo bular emphysema. 6.The diffuse thickening of the gastric wall could be due to ga stritis or chronic proton pump inhibitor use. Signed: Glenn Cadet [facility] Date/Time: 11/17/2018 17:51:15 Reading Location: [facility] C0Y CT Body Readin Room , [id number] 17:51:00FINAL REPORT TECHNIQUE: CT of the chest, abdomen, [...] right on axial image 28 measures 0.5 cm.PLEURA: The pleural spaces are clear.HEART AND MEDIASTINUM: The visualized thyroid gland is [...] lesions. Gallbladder is unremarkable. No biliary ductal dilatation.SPLEEN: No splenomegaly.PANCREAS: No focal masses or ductal dilatation. ADRENALS: A hypodense left adrenal nodule measures 1.9 cm on axial image 62.KIDNEYS/URETERS: No hydronephrosis, stones, or solid mass lesions.PELVIC ORGANS/BLADDER: Unremarkable. PERITONEUM/RETROPERITONEUM: No free air or fluid.LYMPH NODES: No lymphadenopathy.VESSELS: Unremarkable. GI TRACT: The gastric wall is diffusely thickened. Mild diverticulosis of the sigmoid c olon. BONES AND SOFT TISSUES: Mild degenerative disc changes scattered throughou t the visualized spine. IMPRESSION: 1.A right upper lobe cavitary lesion measur es up to 5 cm and is highly concerning for malignancy. 2.The additional right up per lobe 0.5 cm nodule is indeterminate. 3.There are prominent lymph nodes in th e right perihilar and right lower paratracheal regions which are not enlarged by CT size criteria. 4.A left adrenal nodule measures 1.9 cm and is indeterminate but concerning for metastasis. Further evaluation with a CT of the abdomen with and without contrast, adrenal mass protocol, is recommended. 5.Moderate centrilo bular emphysema. 6.The diffuse thickening of the gastric wall could be due to ga stritis or chronic proton pump inhibitor use. Signed: Glenn Cadet [facility] Date/Time: 11/17/2018 17:51:15 Reading Location: [facility] C013Y CT Body Readin Room -GLUCOSE [id number] 16:41:00* Test Item Value Reference Range Comments POC-GLUCOSE METER (BEAKER) (test xlxd=4633) 165 mg/dL 70-110 TESTED AT [facility] [address] [facility] [address] POCT-GLUCOSE [id number] 13:33:00* Test Item Value Reference Range Comments POC-GLUCOSE METER (BEAKER) (test jlrl=5650) 123 mg/dL 70-110 TESTED AT [facility] [address] [facility] [address] TROPONIN [id number] 05:01:00* Test Item Value Reference Range Comments TROPONIN I (BEAKER) (test vlbi=482) < ng/mL 0.00-0.03 Troponin I (TnI) levels must be interpreted in the context of the presenting sym ptoms and the clinical findings. Elevated TnI levels indicate myocardial damage, but are not specific for ischemic heart disease. Elevated TnI levels are seen in patients with other cardiac conditions (including myocarditis and congestive h eart failure), and slight TnI elevations occur in patients with other conditions , including sepsis, renal failure, acidosis, acute neurological disease, and per sistent tachyarrhythmia.CBC W/PLT COUNT & AUTO [id number] 05:01:00* Test Item Value Reference Range Comments WHITE BLOOD CELL COUNT (BEAKER) (test lahu=116) 10.1 K/ L 3.5-10.5 RED BLOOD CELL COUNT (BEAKER) (test wjql=106) 4.09 M/ L 4.63-6.08 HEMOGLOBIN (BEAKER) (test kqwg=079) 13.5 GM/DL 13.7-17.5 HEMATOCRIT (BEAKER) (test vmuy=301) 38.4 % 40.1-51.0 MEAN CORPUSCULAR VOLUME (BEAKER) (test czfd=160) 93.9 fL 79.0-92.2 MEAN CORPUSCULAR HEMOGLOBIN (BEAKER) (test zsnb=625) 33.0 pg 25.7-32.2 MEAN CORPUSCULAR HEMOGLOBIN CONC (BEAKER) (test hlqo=899) 35.2 GM/DL 32.3-36.5 RED CELL DISTRIBUTION WIDTH (BEAKER) (test cvkn=847) 12.1 % 11.6-14.4 PLATELET COUNT (BEAKER) (test xfdq=892) 338 K/CU MM 150-450 MEAN PLATELET VOLUME (BEAKER) (test gzbo=681) 8.9 fL 9.4-12.4 NUCLEATED RED BLOOD CELLS (BEAKER) (test hrvh=268) 0 /100 WBC 0-0 NEUTROPHILS RELATIVE PERCENT (BEAKER) (test lcie=947) 90 % LYMPHOCYTES RELATIVE PERCENT (BEAKER) (test jqzw=225) 9 % MONOCYTES RELATIVE PERCENT (BEAKER) (test drnj=680) 1 % EOSINOPHILS RELATIVE PERCENT (BEAKER) (test uljo=284) 0 % BASOPHILS RELATIVE PERCENT (BEAKER) (test ldes=153) 0 % NEUTROPHILS ABSOLUTE COUNT (BEAKER) (test iybn=314) 9.04 K/ L 1.78-5.38 LYMPHOCYTES ABSOLUTE COUNT (BEAKER) (test aafs=874) 0.89 K/ L 1.32-3.57 MONOCYTES ABSOLUTE COUNT (BEAKER) (test ampg=137) 0.07 K/ L 0.30-0.82 EOSINOPHILS ABSOLUTE COUNT (BEAKER) (test plvl=040) 0.02 K/ L 0.04-0.54 BASOPHILS ABSOLUTE COUNT (BEAKER) (test clmk=930) 0.02 K/ L 0.01-0.08 IMMATURE GRANULOCYTES-RELATIVE PERCENT (BEAKER) (test sigb=0755) 0 % 0-1 BASIC METABOLIC [id number] 04:48:00* Test Item Value Reference Range Comments SODIUM (BEAKER) (test fwud=404) 128 meq/L 136-145 POTASSIUM (BEAKER) (test yeqp=659) 4.4 meq/L 3.5-5.1 CHLORIDE (BEAKER) (test oiov=770) 99 meq/L 98-107 CO2 (BEAKER) (test xmzu=639) 19 meq/L 22-29 BLOOD UREA NITROGEN (BEAKER) (test mlzt=464) 15 mg/dL 7-21 CREATININE (BEAKER) (test igdg=571) 0.83 mg/dL 0.57-1.25 GLUCOSE RANDOM (BEAKER) (test rsit=461) 117 mg/dL 70-105 CALCIUM (BEAKER) (test umae=302) 9.4 mg/dL 8.4-10.2 EGFR (BEAKER) (test rlgi=1772) mL/min/1.73 sq m INSUFFICIENT CLINICAL DATA TO CALCULATE ESTIMATED GFR. [id number] 04:43:00* Test Item Value Reference Range Comments PHOSPHORUS (BEAKER) (test jiee=280) 3.8 mg/dL 2.3-4.7 [id number] 04:43:00* Test Item Value Reference Range Comments MAGNESIUM (BEAKER) (test oepj=556) 2.0 mg/dL 1.6-2.6 HEPATIC FUNCTION [id number] 04:43:00* Test Item Value Reference Range Comments TOTAL PROTEIN (BEAKER) (test dewe=758) 7.4 gm/dL 6.0-8.3 ALBUMIN (BEAKER) (test wplu=0057) 4.3 g/dL 3.5-5.0 BILIRUBIN TOTAL (BEAKER) (test habv=497) 0.5 mg/dL 0.2-1.2 BILIRUBIN DIRECT (BEAKER) (test yftg=904) 0.3 mg/dL 0.1-0.5 ALKALINE PHOSPHATASE (BEAKER) (test ncbz=750) 82 U/L 40-150 AST (SGOT) (BEAKER) (test hgyl=502) 18 U/L 5-34 ALT (SGPT) (BEAKER) (test wcbr=010) 15 U/L 6-55 CHEST 2 [id number] 22:33:00 [place] [address] Patient Name: SHIREEN LAZCANO MR #: [id number] : 1960 Age/Sex: 58/M Req #: [id number] Adm Physician: Ordered by: ADRIANNE ORTEGA MD Report #: [id number] Location: ER Room/Bed: Procedure: [id number] DX/ CHEST 2 VIEWS Exam Date: 11/16/18 Exam Time: 2209 REPORT STATUS: Signed EXAMINATION: CHEST 2 VIEWS INDICATION: Weakness, low back pain for one week BR ONCHITIS [id number] 2210 Y COMPARISON: None FINDINGS: PA and lateral views TUBES and LINES: None. LUNGS: Lungs are well infl ated with flattening of the diaphragms suggestive of small airways disease. S piculated right upper lobe mass measures 3.4 x 3.6 cm with central cavitation. No air-fluid level. Left lung is clear. PLEURA: No pleural effusion or pn eumothorax. HEART AND MEDIASTINUM: The cardiomediastinal silhouette is unr emarkable.. BONES AND SOFT TISSUES: No focal osseous lesions. Soft tis sues are unremarkable. UPPER ABDOMEN: No free air under the diaphragm. IMPRESSION: Spiculated cavitary mass in the right upper lobe. This is sug gestive of a neoplastic process or tuberculosis infection. Signed by: Dr. Ronnell Ceballos MD on 11/16/2018 10:35 PM Dictated By: RONNELL GASCA MD 34 Transc ribed By: TITA on 11/16/182234 COPY TO: ADRIANNE ORTEGA MD CT BRAIN [id number] 22:22:00 [place] [address] Patient Name: SHIREEN LAZCANO MR #: [id number] : 1960 Age/Sex: 58/M Req #: [id number] Adm Physician: Ordered by: ADRIANNE ORTEGA MD Report #: [id number] Location: ER Room/Bed: Procedure: [id number] CT/ CT BRAIN WO Exam Date: 11/16/18 Exam Time: 2214 REPORT STATUS: Signed CT BRAIN WO HISTORY: TIA COMPARISON: None. TECHNIQUE: Noncontrast axial scans were obtained from skull base to the vertex. Coronal and sagittal reconstr uctions obtained from the axial data. One or more of the following dose reduc tion techniques were used: Automated exposure control, adjustment of the mA an d/or kV according to patient size, and/or utilization of iterative reconstruct ion technique. DISCUSSION: Scalp/Skull: Unremarkable. Brain sulci: A ppropriate for patient's age. Ventricles: The body of the right lateral ventri jonathan is slightly effaced. Otherwise, unremarkable. Extra-axial spaces: No mas ses or fluid collections. Parenchyma: Approximately 1.9 cm peripher ally isodense, centrally hypodense mass (relative to brain parenchyma) centere d in the right thalamus is associated with prominent local vasogenic edema. Th e edema extends into the right temporal stem and right midbrain. Similar 2.4 cm juxtacortical mass along the left superior frontal sulcus is also assoc iated with prominent local vasogenic edema. Additional focal areas of vasog enic edema are seen in the right posterior inferior frontal gyrus (pars opercu demetra), right precentral gyrus, and left mesial temporal lobe. Mass effec t is local without significant brain herniation. Otherwise, no acute hyperdens e hemorrhage, or large vascular territory acute infarct. Dural sinuses: No abnormal densities. Sellar/Suprasellar region: Intact. Skull base: Intact. Incidental findings: Mild carotid siphon calcifications are present. IMPR ESSION: 1. 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 Additional, associated areas of focal vasogeni c edema in the right frontal lobe and left mesial temporal lobe. Differential considerations include metastatic disease in the appropriate clinical setting or multifocal infectious process (i.e. septic emboli with abscesses). 2. M ass effect is local without significant brain herniation. Further evaluati on with brain MRI (without and with contrast) is recommended. Signed by: Dr. Hair Parham M.D. on 11/16/2018 10:35 PM Dictated By: HAIR SALAZAR MPA, MD 34 Transcri bed By: TITA on 11/16/182234 COPY TO: ADRIANNE ORTEGA MD
--- OUTSIDE RECORDS SUMMARY | 2018-12-06 11:09 | XMS REPORT | Clinical Summary ---
Author Author PHYLICIA [facility] Address Unknown Phone Unavailable Care Team Providers Care Scale Technician Name Role Phone Zach Preston PCP Allergies [...] laterality (HCC); Goals of care, counseling/discussion 11/17/2018 [facility] General Internal Medicine - Encounter 11/28/2018 11/17/2018 [...] Type Specialty Jorge King MD [address], [place] [phone] 12/16/2018 Procedure visit Radiation Oncology Jorge King MD [address] [place] [address] 01/16/2019 Procedure visit Radiation Oncology [...] Routine 11/26/2018 CLINICIAN 12:28 PM CDT [place] [employer] SAL[employer] CONSULTANT IN OR 30 Routine 11/26/2018 MINUTE INCREMENTS [...] is included. POC-Glucose Meter 105Comment: TESTED AT [facility] 70 - 110 mg/dL [facility] [address] [facility] [address] [facility] Specimen Blood Performing Organization Address City/State/Zipcode Phone Number [facility] [address] [place], [place] [phone] [facility] * CBC with platelet count + automated diff (11/28/2018 5:45 AM CDT) Only the most recent of 11 results within the time period is included. WBC 12.6 (H) 3.5 - 10.5 K/L [facility] RBC 3.66 (L) 4.63 - 6.08 M/L [facility] Hemoglobin 12.1 (L) 13.7 - 17.5 GM/DL [facility] Hematocrit 35.5 (L) 40.1 - 51.0 % [facility] MCV 97.0 (H) 79.0 - 92.2 fL [facility] MCH 33.1 (H) 25.7 - 32.2 pg [facility] MCHC 34.1 32.3 - 36.5 GM/DL [facility] RDW 12.2 11.6 - 14.4 % [facility] Platelets 262 150 - 450 K/CU MM [facility] MPV 9.0 (L) 9.4 - 12.4 fL [facility] nRBC 0 0 - 0 /100 WBC [facility] % Neutros 86 % [facility] % Lymphs 9 % [facility] % Monos 4 % [facility] % Eos 0 % [facility] % Baso 0 % [facility] # Neutros 10.84 (H) 1.78 - 5.38 K/L [facility] # Lymphs 1.13 (L) 1.32 - 3.57 K/L [facility] # Monos 0.48 0.30 - 0.82 K/L [facility] # Eos 0.00 (L) 0.04 - 0.54 K/L [facility] # Baso 0.01 0.01 - 0.08 K/L [facility] Immature 1 0 - 1 % [facility] Granulocytes-[facility] Specimen Blood Performing Organization Address City/[facility] Cent[facility]ode Phone Number [facility] [address] [place] [address] [facility] * Coccidioides antibodies (11/28/2018 5:45 AM [...] At Performing Lab [facility] *[employer] [facility] [address] [place] [address] Vlad Cazares MD Performing Organization Address City/State/Zipcode Phone Number [facility], [address] [facility] [address] * Basic Metabolic Panel (11/28/2018 5:45 AM CDT) Only the most recent of 11 results within the time period is included. Sodium 132 (L) 136 - 145 meq/L [facility] Potassium 3.8 3.5 - 5.1 meq/L [facility] Chloride 102 98 - 107 meq/L [facility] CO2 23 22 - 29 meq/L [facility] BUN 16 7 - 21 mg/dL [facility] Creatinine 0.62 0.57 - 1.25 mg/dL [facility] Glucose 125 (H) 70 - 105 mg/dL [facility] Calcium 8.4 8.4 - 10.2 mg/dL [facility] EGFR Comment: INSUFFICIENT CLINICAL mL/min/1.73 sq m [facility] DATA TO CALCULATE ESTIMATED [facility] GFR. Specimen Blood Performing Organization Address City/State/Zipcode Phone Number [facility] [address] [place] [address] [facility] * TRANSFUSION SERVICE REPORT - SCAN (11/27/2018 5:55 PM CDT) Narrative Performed At * XR chest 1 view portable / bedside (11/26/2018 2:44 PM CDT) Specimen Narrative Performed At FINAL REPORT [facility] TECHNIQUE: Frontal chest radiograph dated 11/26/2018. CLINICAL HISTORY: Status post right upper lobe transbronchial biopsy COMPARISON STUDY: Chest CT dated 11/22/2018 IMPRESSION: Right upper lobe mass is again visualized. Lungs are otherwise clear. No pleural effusion or pneumothorax. Cardiomediastinal silhouette is normal in size. No pulmonary edema. Bones are osteopenic. Signed: Daniel Roger MD Report Verified Date/Time:11/26/2018 15:04:06 Reading Location: [facility] Radiology Reading Room Procedure Note Interface, External [...] Report Verified Date/Time: 11/26/2018 15:04:06 Reading Location: [facility] Radiology Reading Room Performing Organization Address City/[facility] Cent[facility]ode Phone Number [facility] * Blastomyces antibody (11/26/2018 2:21 PM CDT) Blastomyces Ab,Id NEGATIVE [facility] Comment: INCORPORATED REFERENCE RANGE: NEGATIVE INTERPRETIVE CRITERIA: NEGATIVE: Antibody Not Detected POSITIVE: Antibody Detected A positive result is diagnostic of active or recent blastomycosis and is found in approximately 80% of proven cases of blastomycosis. Specimen Blood Narrative Performed At Performing Lab [facility] *[employer] [id number] [place] [phone] Vlad Cazares MD Performing Organization Address [facility] Centercoar Phone Number [facility] [employer], [address] [facility] [employer] [facility] [address] * Aspergillus galactomannan antigen (11/26/2018 2:21 PM CDT) Aspergillus Index Value <0.50 [facility] Aspergillus Antigen NOT DETECTED [facility] Comment: INCORPORATED REFERENCE RANGE: <0.50, NOT DETECTED A negative result does not exclude invasive aspergillosis. Follow-up testing may be indicated for high-risk patients. Specimen Blood Narrative Performed At Performing Lab [facility] *[employer] [address] [place] [address] Vlad Cazares MD Performing Organization Address [facility] Centercode Phone Number [facility] [employer], [address] [facility] [employer] [facility] [address] * REPORT OF PROCEDURE - ENDOSCOPY URL (11/26/2018 12:37 PM CDT) Narrative Performed At * CYTOLOGY REQUEST (11/26/2018 12:29 PM CDT) Only the most recent of 2 results within the time period is included. Cytology See Separate Report [facility] Specimen BAL Performing Organization Address City/State/Zipcode Phone Number [address] [address] [facility] * Cytology (11/26/2018 12:29 PM CDT) Only the most recent of 2 results within the time period is included. Case Report Medical Cytology [facility] Report [facility] Case: [id number] Authorizing Provider:Leida Mcintosh MDCollected: 11/26/2018 1229 Ordering Location: [facility] Received: 11/26/2018 1305 SERVICES Pathologist: Ubaldo Ortiz MD Specimen:Lung, Right Upper Lobe, BAL DIAGNOSIS LUNG, RIGHT UPPER LOBE, BAL [facility] (CYTOSPINS): [facility] - NON SMALL CELL CARCINOMA, POORLY DIFFERENTIATED, WITH DEGENERATIVE FEATURES Signing Pathologist Direct Phone Line: [phone] COMMENT Please also see surgical [facility] pathology report [id number] [facility] cytopathology report [id number]. CPT Code(s) 80136 [facility] CLINICAL DATA Lung mass [facility] SPECIMEN SOURCE LUNG, RIGHT UPPER LOBE BAL [facility] GROSS DESCRIPTION Prepared 4 cytospins from 15 [facility] ml blood-tinged fluid [facility] Collected: [id number] Received: [id number] MICROSCOPIC DESCRIPTION Few degenerating atypical [facility] cells consistent with [facility] non-small cell carcinoma are present. Benign bronchial epithelial cells and macrophages are present in background. STATEMENT OF ADEQUACY Satisfactory [facility] Gross assessment was [facility] performed at [place], Department of [facility] Pathology, [address] [place] [address], Technical component was [facility] performed at [place], Department of [facility] Pathology, [address] [place] [address], Professional component [facility] was performed at [facility], Department of [facility] Pathology, [address] [place] [address], [place] [address], Specimen BAL Narrative Performed At Performing Organization Address City/State/Zipcode Phone Number [facility] [address] [place] [phone] [facility] * Surgically obtained culture + gram stain (11/26/2018 12:28 PM CDT) Only the most recent of 2 results within the time period is included. Result <1+ Viridans Streptococcus (A) [facility] Gram Stain Result No WBCs [facility] Gram Stain Result No organisms seen [facility] Specimen Fine Needle Aspirate Performing Organization Address City/[facility] Centercode Phone Number [address] [address] [facility] * FINE NEEDLE ASPIRATE (FNA) REQUEST (11/26/2018 12:28 PM CDT) Cytology See Separate Report [facility] Specimen Fine Needle Aspirate Performing Organization Address City/[facility] Centercode Phone Number [facility] [address] [place] [phone] [facility] * FL hog trader in or 30 minute increments (11/26/2018 12:28 PM CDT) Specimen Narrative Performed At FLUOROSCOPIC UNIT UTILIZED-NO INTERPRETATION REQUESTED. [facility] Procedure Note Interface, External Ris In - 12/02/2018 5:13 PM CDT FLUOROSCOPIC UNIT UTILIZED-NO INTERPRETATION REQUESTED. Performing Organization Address City/State/[facility] Centercode Phone Number [facility] * Fine Needle Aspirate by Clinician (11/26/2018 12:28 PM CDT) Case Report Medical Cytology [facility] Case: [id number] Authorizing Provider:Leida Mcintosh MDCollected: 11/26/2018 1228 Ordering Location: [facility] Received: 11/26/2018 1305 SERVICES Pathologist: Ubaldo Ortiz MD Specimen:Lung, Right Upper Lobe DIAGNOSIS LUNG, RIGHT UPPER LOBE, FNA BY [facility] CLINICIAN (CYTOSPINS AND CELL [facility] BLOCK OF ASPIRATE): - NON SMALL CELL CARCINOMA, POORLY DIFFERENTIATED Signing Pathologist Direct Phone Line: [phone] COMMENT Please also see surgical [facility] pathology report [id number] [facility] cytopathology report [id number]. CPT Code(s) 47272, 79456 [facility] CLINICAL DATA Lung mass [facility] SPECIMEN SOURCE LUNG, RIGHT UPPER LOBE FNA [facility] GROSS DESCRIPTION Prepared cell block(A2) and 2 [facility] cytospins from [address] [facility] red fixative sample Collected: [id number] Received: [id number] SPECIAL STUDIES The interpretation of this [facility] case included the use of [facility] immunohistochemistry or special stains. Control Slides Examined: In-house known positive controls were evaluated along with the test tissue. These control slides run alongside of the patients sample show appropriate staining. Internal positive and negative controls when available are evaluated Immunohistochemistry technical testing was performed at [facility], Pathology Laboratory where it was developed [...] complexity clinical laboratory testing. Gross assessment was [facility] performed at [place], Department of [facility] Pathology, [address] [place] [address], Technical component was [facility] performed at [place], Department of [facility] Pathology, [address] [place] [address], Professional component [facility] was performed at [facility], Department of [facility] Pathology, [address] [place] [address], Specimen Fine Needle Aspirate Narrative Performed At Performing Organization Address City/State/Zipcode Phone Number [address] [address] [facility] * Tissue Exam (11/26/2018 12:27 PM CDT) Case Report Surgical Pathology [facility] Report [facility] Case: [id number] Authorizing Provider:Leida Mcintosh MDCollected: 11/26/2018 1227 Ordering Location: [facility] Received: 11/26/2018 1307 SERVICES Pathologist: Nasra Plummer MD Specimen:Lung, Right Upper Lobe, TBBX, process in cytology for colloidion bag, reflex genetic markers DIAGNOSIS A. LUNG, RIGHT UPPER LOBE, [facility] TRANSBRONCHIAL BIOPSY: [facility] - ADENOCARCINOMA, CONSISTENT WITH PULMONARY PRIMARY (SEE COMMENT) Signing Pathologist Direct Phone Line: [phone] COMMENT A. Immunostain for TTF1 is [facility] positive and p40 is negative, [facility] supporting the above diagnosis. CPT Code(s) [address]42 [facility] [address] [facility] [address] CLINICAL HISTORY Lung mass [facility] SPECIMEN SOURCE A. Right upper lobe lung [facility] transbronchial biopsy [facility] GROSS DESCRIPTION Specimen A: The specimen is [facility] received in a formalin-filled [facility] container and labeled with the patient's information [...] in a collodion bag. MICROSCOPIC DESCRIPTION Performed. [facility] SPECIAL STUDIES The interpretation of this [facility] case included the use of [facility] immunohistochemistry or special stains. Control Slides Examined: In-house known positive controls were evaluated along with the test tissue. These control slides run alongside of the patients sample show appropriate staining. Internal positive and negative controls when available are evaluated Immunohistochemistry technical testing was performed at [facility], Pathology Laboratory where it was developed [...] complexity clinical laboratory testing. Gross assessment was [facility] performed at [place], [facility] Pathology, [address] [place] [address], Technical component was [facility] performed at [place], [facility] Pathology, [address] [place] [address], Professional component [facility] was performed at [place], [facility] Pathology, [address] [place] [address], Specimen Tissue Narrative Performed At Performing Organization Address City/State/Zipcode Phone Number [address] [address] [facility] * AFB, Baterial, Fungi pcr (11/26/2018 8:30 AM CDT) Scan Result [facility] Specimen Tissue Narrative Performed At Performing Organization Address City/State/Zipcode Phone Number [facility] [phone] [place] [address] * ABORH, manual (11/26/2018 5:59 AM CDT) ABO Grouping O [facility] Rh Factor POS [facility] Specimen Blood Performing Organization Address City/[facility] Centercode Phone Number [address] [address] [facility] * Type and screen, automated (11/26/2018 5:13 AM CDT) ABO/RH AUTOMATED (BEAKER) O POSITIVE [facility] Ab Scrn NEGATIVE [facility] Specimen Blood Performing Organization Address [facility] Center[facility] Phone Number [address] [address] [facility] * aPTT (11/26/2018 5:13 AM CDT) PTT 30.8 22.5 - 36.0 seconds [facility] Specimen Blood Performing Organization Address City/[facility] Centercode Phone Number [address] [address] [phone] [place] [address] * Prothrombin time/INR (11/26/2018 5:13 AM CDT) Protime 13.9 11.9 - 14.2 seconds [facility] INR 1.1 <=5.9 [facility] Specimen Blood Narrative Performed At Effective 11/13/2018: PT Reference Range Change [facility] New: 11.9-14.2Previous: 11.7-14.7 [facility] RECOMMENDED COUMADIN/WARFARIN INR THERAPY RANGES STANDARD DOSE: 2.0-3.0Includes: PROPHYLAXIS for venous thrombosis, systemic embolization; TREATMENT for venous thrombosis and/or pulmonary embolus. HIGH RISK: Target INR is 2.5-3.5 for patients wiht mechanical heart valves. Performing Organization Address City/[facility] Center[facility] Phone Number [address] [address] [phone] * Comprehensive metabolic panel (11/26/2018 5:13 AM CDT) Protein, Total 5.6 (L) 6.0 - 8.3 gm/dL [facility] Albumin 3.3 (L) 3.5 - 5.0 g/dL [facility] Alkaline Phosphatase 55 40 - 150 U/L [facility] Total Bilirubin 0.6 0.2 - 1.2 mg/dL [facility] Sodium 134 (L) 136 - 145 meq/L [facility] Potassium 3.9 3.5 - 5.1 meq/L [facility] Chloride 104 98 - 107 meq/L [facility] CO2 25 22 - 29 meq/L [facility] BUN 24 (H) 7 - 21 mg/dL [facility] Creatinine 0.64 0.57 - 1.25 mg/dL [facility] Glucose 111 (H) 70 - 105 mg/dL [facility] Calcium 8.2 (L) 8.4 - 10.2 mg/dL [facility] AST 11 5 - 34 U/L [facility] ALT 21 6 - 55 U/L [facility] EGFR Comment: INSUFFICIENT CLINICAL mL/min/1.73 sq m [facility] DATA TO CALCULATE ESTIMATED [facility] GFR. Specimen Blood Performing Organization Address City/State/Zipcode Phone Number [facility] [address] [place] [address] [facility] * CT chest without IV contrast (11/22/2018 6:03 PM CDT) Specimen Narrative Performed At FINAL REPORT [facility] CT of the Chest dated 11/22/2018 COMPARISON: [...] lobe. Signed: Marcelo Boyd MD Report Verified Date/Time:11/22/2018 19:04:17 Reading Location: [address] Body Reading Room Procedure Note [...] Report Verified Date/Time: 11/22/2018 19:04:17 Reading Location: [facility] B1 C013Y CT Body Reading Room Performing Organization Address City/State/[facility] Cent[facility]ode Phone Number [facility] * SPIN/CONCENTRATION CHARGE (11/22/2018 12:58 PM CDT) Only the most recent of 3 results within the time period is included. Concentration charged Done [facility] Specimen Sputum - Expectorated Performing Organization Address City/[facility] [place] [address] [phone] [place] [address] * REPORT OF PROCEDURE - ENDOSCOPY URL (11/22/2018 12:53 PM CDT) Narrative Performed At * EBUS FNA REQUEST (11/22/2018 8:20 AM CDT) Only the most recent of 2 results within the time period is included. Cytology See Separate Report [facility] Specimen EBUS Fine Needle Aspirate - Lymph Node, Interlobar, Right, Station 11R Performing Organization Address [facility] Phone Number [place] [phone] [place] [address] * Fine Needle Aspiration by EBUS (11/22/2018 8:20 AM CDT) Only the most recent of 2 results within the time period is included. Case Report Medical Cytology [facility] Report [facility] Case: [id number] Authorizing Provider:Leiad Mcintosh MDCollected: 11/22/2018 0820 Ordering Location: [address] Received: 11/22/2018 0854 Service Pathologist: Ubaldo Ortiz MD Specimen:Lymph Node, Interlobar, Right, Station 11R DIAGNOSIS LYMPH NODE, INTERLOBAR RIGHT, [facility] STATION 11R EBUS FNA BY [facility] CLINICIAN (CYTOSPINS AND CELL BLOCK OF ASPIRATE): - LYMPHOCYTES PRESENT - NO MALIGNANT CELLS IDENTIFIED Signing Pathologist Direct Phone Line: [phone] COMMENT Please see cytopathology cases [facility] [id number] [facility] CPT Code(s) 81528, [address] [facility] CLINICAL DATA Lung Mass, mediastinal [facility] lymphadenopathy, adrenal and [facility] brain masses. Presumed lung cancer with mets. SPECIMEN SOURCE LYMPH NODE, INTERLOBAR RIGHT, [facility] STATION 11R EB[address] FNA [facility] GROSS DESCRIPTION 35 mls in cytorich red; 2 [facility] cytospins, cell block [facility] (collodion bag) Collected: [id number] Received: [id number] SPECIAL STUDIES The interpretation of this [facility] case included the use of [facility] immunohistochemistry or special stains. Control Slides Examined: In-house known positive controls were evaluated along with the test tissue. These control slides run alongside of the patients sample show appropriate staining. Internal positive and negative controls when available are evaluated Immunohistochemistry technical testing was performed at [facility], Pathology Laboratory where it was developed [...] complexity clinical laboratory testing. Gross assessment was [facility] performed at [place], [facility] Pathology, [address] [place] [address], Technical component was [facility] performed at [place], [facility] Pathology, [address] [place] [address], Professional component [facility] was performed at [place], [facility] Pathology, [address] [place] [address], Specimen EB[facility] Fine Needle Aspirate - Lymph Node, Interlobar, Right, Station 11R Narrative Performed At Performing Organization Address [facility] Phone Number [facility] [address] [place] [address] [facility] * Bronchial culture + gram stain (11/22/2018 8:04 AM CDT) Result 3+ Normal respiratory selam [facility] Gram Stain Result <1+ WBCs [facility] Gram Stain Result No organisms seen [facility] Specimen BAL Performing Organization Address [facility] Phone Number [facility] [address] [place] [address] [facility] * PT/aPTT (11/20/2018 4:55 AM CDT) Protime 13.7 11.9 - 14.2 seconds [facility] INR 1.1 <=5.9 [facility] PTT 32.4 22.5 - 36.0 seconds [facility] Specimen Blood Narrative Performed At Effective 11/13/2018: PT Reference Range Change [facility] New: 11.9-14.2Previous: 11.7-14.7 [facility] RECOMMENDED COUMADIN/WARFARIN INR THERAPY RANGES STANDARD DOSE: 2.0-3.0Includes: PROPHYLAXIS for venous thrombosis, systemic embolization; TREATMENT for venous thrombosis and/or pulmonary embolus. HIGH RISK: Target INR is 2.5-3.5 for patients wiht mechanical heart valves. Performing Organization Address [facility] Centercode Phone Number [facility] [address] [place] [address] [facility] * Phosphorus (11/20/2018 4:55 AM CDT) Only the most recent of 3 results within the time period is included. Phosphorus 3.3 2.3 - 4.7 mg/dL [facility] Specimen Blood Narrative Performed At Check Serum Phosphorus level 4 hours after IV phosphorus replacement or 8 hours [facility] after PO replacement completed. [facility] Performing Organization Address City/State/Zipcode Phone Number [facility] [address] [place] [address] [facility] * Magnesium (11/20/2018 4:55 AM CDT) Only the most recent of 3 results within the time period is included. Magnesium 2.1 1.6 - 2.6 mg/dL [facility] Specimen Blood Narrative Performed At Check Serum Phosphorus level 4 hours after IV phosphorus replacement or 8 hours [facility] after PO replacement completed. [facility] Performing Organization Address City/[facility] Hospital/Zipcode Phone Number [facility] [address] [place] [address] [facility] * NM bone scan whole body (11/19/2018 4:43 PM CDT) Specimen Narrative Performed At FINAL REPORT [facility] PROCEDURE: BONE SCAN, WHOLE BODY CPT CODE:27606 INDICATION:Lung mass,neoplasm within the head, chest, and [...] MD Report Verified Date/Time:11/19/2018 17:29:03 Reading Location: [address] Reading Room Procedure Note Interface, External Ris In - 11/19/2018 5:31 PM CDT FINAL REPORT PROCEDURE: BONE SCAN, WHOLE BODY CPT CODE: 48617 INDICATION: Lung mass, neoplasm within the head, [...] Report Verified Date/Time: 11/19/2018 17:29:03 Reading Location: [address] Reading Room Performing Organization Address City/State/Zipcode [...] Blood Narrative Performed At Performing Organization Address City/State/[facility] Phone Number [facility] [address] [place] [address] LABORATORIES 100 * Histoplasma antigen, urine (11/18/2018 [...] analytical performance characteristics have been determined by [facility]. It has not been cleared or approved by the U.S. Food and Drug Administration.The FDA has determined that such clearance or approval is not necessary. This assay has been validated pursuant to the CLIA regulations andis used for clinical purposes. Specimen Urine Narrative Performed At [facility] *[facility] [address] [place] [address] Vlad Cazares MD Performing Organization Address City/State/Zipcode Phone Number [facility], [address] [place], [place] [facility] [address] * HIV-1 Antigen with HIV-1/2 Antibody (11/18/2018 6:37 PM CDT) HIV-1 Antigen with HIV Nonreactive Nonreactive [facility] 1&[address] [facility] Specimen Blood Performing Organization Address City/[facility] Cent[facility]ode Phone Number [facility] [address] [place] [address] [phone] [place] [address] * Histoplasma Ab by Complement fixation (11/18/2018 [...] analytical performance characteristics have been determined by [facility]. It has not been cleared or approved by FDA. This assay has been validated pursuant to the CLIA regulations and is used for clinical purposes. Specimen Blood Narrative Performed At [facility] *[facility] [address] [place] [address] Vlad Cazares MD Performing Organization Address City/State/Zipcode Phone Number [facility], [address] [place], [place] [facility] [address] [address] * MR brain without & with IV contrast (11/18/2018 5:55 PM CDT) Specimen Narrative Performed At FINAL REPORT [facility] MR, BRAIN, WITH \\T\\ WITHOUT CONTRAST INDICATION: Neoplasm: head, [employer]ER [employer]NER, suspected Neoplasm: head, metastatic, suspected Technique: MRI [...] MD Report Verified Date/Time:11/18/2018 19:52:30 Reading Location: [facility] Radiology Reading Room Procedure Note Interface, External Ris In - 11/18/2018 7:54 PM CDT FINAL REPORT MR, BRAIN, WITH \\T\\ WITHOUT CONTRAST INDICATION: Neoplasm: head, [employer], suspected Neoplasm: head, metastatic, suspected Technique: MRI [...] Report Verified Date/Time: 11/18/2018 19:52:30 Reading Location: [facility] Radiology Reading Room Performing Organization Address City/State/Zipcode Phone Number [email or web address] * EEG AWAKE AND DROWSY (11/18/2018 8:54 AM CDT) Specimen Narrative Performed At NEUROPHYSIOLOGY SECTION: EEG REPORT [email or web address] S tudy: [id number] Patient: Ryan Lazcano ACC: [id number] Ordering physician: Jonny Gottlieb ICD10: R56.9 CPT: 66118 Date: 11/18/18 T otal monitoring time: 30 minutes T his is a digital EEG recorded with 32 input channels on a Content Raven system and then reviewed with bipolar and [...] REPORT Study: 5 Patient: Ryan Lazcano ACC: [id number] Ordering physician: Jonny Gottlieb ICD10: R56.9 CPT: 05264 Date: 11/18/18 Total monitoring time: 30 minutes This is a digital EEG recorded with 32 input channels on a Content Raven system and then reviewed with bipolar and [...] CDT) Specimen Narrative Performed At FINAL REPORT [email or web address] TECHNIQUE: CT of the chest, abdomen, and [...] MD Report Verified Date/Time:11/17/2018 17:51:15 Reading Location: [facility] B[address] C[address]Y CT Body Reading Room Procedure [...] Report Verified Date/Time: 11/17/2018 17:51:15 Reading Location: [address] Body Reading Room Performing Organization Address City/State/Zipcode Phone Number [email or web address] * CT chest with IV contrast (11/17/2018 3:01 PM CDT) Specimen Narrative Performed At FINAL REPORT [email or web address] TECHNIQUE: CT of the chest, abdomen, and [...] MD Report Verified Date/Time:11/17/2018 17:51:15 Reading Location: [address] Body Reading Room Procedure Note [...] Report Verified Date/Time: 11/17/2018 17:51:15 Reading Location: [facility] B1 C[address] CT Body Reading Room Performing Organization Address City/State/Zipcode Phone Number [facility] * Troponin I (11/17/2018 4:06 AM CDT) Troponin I <0.01 0.00 - 0.03 ng/mL [facility] Specimen Blood Narrative Performed At Troponin I (TnI) levels must be interpreted in the context of the presenting [facility] symptoms and the clinical findings. Elevated TnI levels indicate myocardial [facility] damage, but are not specific for ischemic heart disease. Elevated TnI levels are seen in patients with other cardiac conditions (including myocarditis and congestive heart failure), and slight TnI elevations occur in patients with other conditions, including sepsis, renal failure, acidosis, acute neurological disease, and persistent tachyarrhythmia. Performing Organization Address [facility] Cent[facility]ode Phone Number [facility] [address] [place], [place] [phone] [facility] * Hepatic function panel (11/17/2018 4:06 AM CDT) Protein, Total 7.4 6.0 - 8.3 gm/dL [facility] Albumin 4.3 3.5 - 5.0 g/dL [facility] Total Bilirubin 0.5 0.2 - 1.2 mg/dL [facility] Bilirubin, Direct 0.3 0.1 - 0.5 mg/dL [facility] Alkaline Phosphatase 82 40 - 150 U/L [facility] AST 18 5 - 34 U/L [facility] ALT 15 6 - 55 U/L [facility] Specimen Blood Performing Organization Address City/State/Zipcode Phone Number [facility] [address] [place], [place] [phone] [facility] after 12/05/2017 Insurance Payer Benefit Subscriber ID Type Phone Address Plan / Group [employer] - [employer] xxxxxxxxxx HMO/POS SELECT US ACCESS Advance Directives For more information, please contact: [address] [phone] Date Inactivated Comments Code Status Date Activated 11/28/2018 8:04 PM Full Code 11/17/2018 2:40 AM This code status was determined by: Patient
[2018-12-06] MEDS ORDERED: ASPIRIN 81 MG CHEW TAB PO ONE (11:30)
[2018-12-06 11:46] LABS: BASOPHILS % 0.1 % (0.0-1.0); HEMATOCRIT 40.9 % (38.2-49.6); HEMOGLOBIN 14.4 g/dL (14.0-18.0); LYMPHOCYTES # (AUTO) 1.1 (1.0-3.2); LYMPHOCYTES % 5.7 % (18.0-39.1); MEAN CORPUSCULAR HEMOGLOBIN 32.5 pg (28-32); MEAN CORPUSCULAR HGB CONC 35.2 g/dL (31-35); MEAN CORPUSCULAR VOLUME 92.3 fL (81-99); MONOCYTES # (AUTO) 0.5 (0.2-0.8); MONOCYTES % 2.4 % (4.4-11.3); NEUTROPHILS # (AUTO) 17.7 (2.1-6.9); NEUTROPHILS % 90.8 % (38.7-80.0); PLATELET COUNT 285 x10e3/uL (140-360); RED BLOOD COUNT 4.43 x10e6/uL (4.3-5.7)
[2018-12-06 11:47] LABS: BILIRUBIN,URINE NEGATIVE (NEGATIVE); CLARITY,URINE CLEAR (CLEAR); COLOR,URINE YELLOW (YELLOW); KETONES,URINE NEGATIVE (NEGATIVE); LEUKOCYTE ESTERASE ,URINE NEGATIVE (NEGATIVE); NITRITE,URINE NEGATIVE (NEGATIVE); PROTEIN,URINE DIPSTICK NEGATIVE (NEGATIVE); URINE UROBILINOGEN 0.2 mg/dL (0.2 - 1)
--- NOTE | 2018-12-06 12:02 | NUR ---
CONSENT SIGNED PRIOR TO CHEST TUBE INSERTION
[2018-12-06 12:06] LABS: ALANINE AMINOTRANSFERASE 22 IU/L (0-55); ALBUMIN 2.4 g/dL (3.5-5.0); ALBUMIN/GLOBULIN RATIO 0.6 (0.8-2.0); ALKALINE PHOSPHATASE 99 IU/L (40-150); BLOOD UREA NITROGEN 25 mg/dL (7-26); BUN/CREATININE RATIO 41 (6-25); CALCIUM 8.9 mg/dL (8.4-10.2); CARBON DIOXIDE 25 mmol/L (22-29); CHLORIDE 94 mmol/L (98-107); CREATINE KINASE 36 IU/L (30-200); CREATININE, SERUM 0.61 mg/dL (0.72-1.25); EST GLOMERULAR FILTRATION RATE > 60 ML/MIN (60-); GLUCOSE 124 mg/dL (74-118); SODIUM 131 mmol/L (136-145)
[2018-12-06 12:07] LABS: EPITHELIAL CELLS,URINE RARE /LPF
[2018-12-06 12:09] LABS: INR 0.98; PROTHROMBIN TIME 13.5 seconds (11.9-14.5)
[2018-12-06 12:10] LABS: PARTIAL THROMBOPLASTIN TIME 26.7 seconds (23.8-35.5)
[2018-12-06] MEDS ORDERED: OMEPRAZOLE20 MG (12:13)
[2018-12-06] MEDS ORDERED: ESCITALOPRAM OX10 MG PO (12:13)
[2018-12-06] MEDS ORDERED: DEXAMETHASONE4 MG PO (12:14)
[2018-12-06] MEDS ORDERED: BACLOFEN10 MG PO (12:14)
[2018-12-06] MEDS ORDERED: PANTOPRAZOLE SO40 MG PO (12:15)
--- NOTE | 2018-12-06 12:23 | Diagnostic Imaging Report ---
EXAM: CHEST SINGLE (PORTABLE), AP Portable DATE: 12/06/2018 Time stamp on exam: 11:45 AM INDICATION: Shortness of breath COMPARISON: 11/16/2018 FINDINGS: LINES/TUBES: None LUNGS: The 3 cm mass previously identified in the right upper lobe now due to a large pneumothorax lies in the perihilar region. Left pulmonary edema. PLEURA: Complete right pneumothorax. HEART AND MEDIASTINUM: Shift of the mediastinum to the left. BONES AND SOFT TISSUES: No acute findings. Findings discussed with Dr. Ramos at the time of interpretation. IMPRESSION: 1. Complete total right pneumothorax with shift of mediastinum to the left. 2. Right upper lobe mass now due to the pneumothorax is at the region of the amilcar. 3. Left sided pulmonary edema. Signed by: Dr. Sushil Mancuso DO on 12/06/2018 12:20 PM
[2018-12-06] MEDS ORDERED: HYDROMORPHONE 2MG/ML 2 MG/ML ML IV ONE (12:45)
[2018-12-06] MEDS ORDERED: HYDROMORPHONE 2MG/ML 2 MG/ML ML ONE (12:47)
[2018-12-06] MEDS ORDERED: LIDOCAINE HCL 1% LOCAL INJ 20 ML VIAL INJ ONE (13:00)
[2018-12-06] MEDS ORDERED: LORAZEPAM INJ 2 MG/ML VIAL IV ONE (13:00)
[2018-12-06] MEDS ORDERED: PIPER-TAZ 3.375 GM 50 ML IV SCH (14:00)
[2018-12-06] MEDS ORDERED: VANCOMYCIN 1GM/NS 250 ML 250 ML IV ONE (14:00)
--- NOTE | 2018-12-06 14:32 | NUR ---
PATIENT TO CT AT THIS TIME
--- NOTE | 2018-12-06 14:49 | Diagnostic Imaging Report ---
EXAM: CHEST SINGLE (PORTABLE), AP Portable DATE: 12/06/2018 Time stamp on exam: 2:12 PM INDICATION: Right pneumothorax COMPARISON: Study performed earlier today on 12/06/2018 and 11/16/2018 FINDINGS: LINES/TUBES: Large bore chest tube has been placed on the right side. Tip extends into the apex. Small residual pneumothorax is present. LUNGS: Right upper lobe mass again identified. Airspace opacities in the left lung inbound sales representative of edema. PLEURA: No effusions or pneumothorax. HEART AND MEDIASTINUM: Normal size and contour. BONES AND SOFT TISSUES: No acute findings. IMPRESSION: 1. Status post right chest tube placement with reexpansion of the lung and small residual pneumothorax. 2. Left pulmonary opacities compatible with edema. Signed by: Dr. Sushil Mancuso DO on 12/06/2018 2:46 PM
[2018-12-06] MEDS ORDERED: SODIUM CHLORIDE 0.9% 1000ML 1,000 ML IV SCH (15:00)
[2018-12-06] MEDS ORDERED: SODIUM CHLORIDE 0.9% 50ML 50 ML ONE (15:29)
[2018-12-06] MEDS ORDERED: IOPAMIDOL 370 MG/ML 200 ML INFUS..BTL INJ ONE (15:30)
--- NOTE | 2018-12-06 15:51 | NUR ---
[facility] CALLED FOR TRANSFER.
--- NOTE | 2018-12-06 15:53 | Diagnostic Imaging Report ---
EXAMINATION: CT of the chest with contrast, PE protocol. TECHNIQUE: Spiral CT images of the chest were performed from the lung apices through the level of the adrenal glands after the IV administration of 100 cc of Isovue-370. Thin section reconstructions were obtained with special concentration on the pulmonary arteries. Technique modification was utilized to maintain the lowest dose possible to the patient. DLP: 451.03 mGy-cm COMPARISON: <none> CLINICAL HISTORY:Recent diagnosis of lung cancer with brain metastasis. Patient had a lung biopsy performed at an outside hospital. DISCUSSION: Lungs: No filling defects are identified in the main, right or left pulmonary arteries to their segmental and subsegmental levels, to suggest pulmonary embolism. Right upper lobe spiculated centrally necrotic mass measures 5.3 cm. Diffuse left pulmonary edema. Upper lobe emphysematous changes. Airways: <The major airways are clear.> Pleura: Right-sided chest tube extends to the apex. Residual 20-30% right pneumothorax. Heart and mediastinum: <The heart and the mediastinum are normal.> Enlarged pretracheal node measures 11 mm in short axis. There aren't other small mediastinal nodes present. In the face of this right upper lobe mass this lymphadenopathy is likely metastatic. Abdomen: There is a 2.2 cm left adrenal mass that is incompletely visualized but highly suspicious for metastasis. Bones and soft tissues: <The thoracic skeleton is normal for age. The soft tissues are unremarkable.> IMPRESSION: 1. No CTA evidence of pulmonary emboli. 2. Status post right chest tube placement with residual 20-30% pneumothorax. 3. Chronic spiculated right upper lobe pulmonary mass. 4. Mediastinal lymphadenopathy is likely metastatic. 5. Left adrenal mass likely metastatic. Signed by: Dr. Sushil Mancuso DO on 12/06/2018 3:49 PM
--- NOTE | 2018-12-06 16:02 | NUR ---
report called to [facility] at this time; patient and family updated on plan of care and transfer. all questions answered at this time.
--- NOTE | 2018-12-06 16:55 | NUR ---
called [facility] for updated eta. states they are here. not here yet.
--- NOTE | 2018-12-06 17:19 | NUR ---
[facility] BEDSIDE FOR PATIENT AT THIS TIME; PATIENT AND FAMILY UPDATED ON PLAN OF CARE
== END 2018-12-06 17:43 | disposition other institution (70) ==
LOC: ER 11:07
DX: R06.00 Dyspnea, unspecified (principal); C34.2 Malignant neoplasm of middle lobe, bronchus or lung; J95.811 Postprocedural pneumothorax
CPT/HCPCS: 32551; 36415; 71045; 71260; 80053; 81001; 82550; 82553; 83880; 84484; 85025; 85379; 85610; 85730; 87086; 93005; 99285; J1170; J2001; J2060; J2543; J3370; Q9967

== ENCOUNTER 2019-01-01 00:29 | Emergency (ER) | payer OTHER ==
[~2019-01-01] VITALS: Ht 170.2 cm; Wt 53.1 kg
[~2019-01-01 00:29] MED LIST changes: +BACLOFEN10 MG PO; +DEXAMETHASONE4 MG PO; +ESCITALOPRAM OX10 MG PO; +OMEPRAZOLE20 MG; +PANTOPRAZOLE SO40 MG PO
--- OUTSIDE RECORDS SUMMARY | 2019-01-01 00:33 | XMS REPORT | Clinical Summary ---
Author Author PHYLICIA [facility] Address Unknown Phone Unavailable Care Team Providers Care Yeast Supervisor Name Role Phone Zach Preston PCP Allergies No Known Allergies Medications End Date Status Medication Sig Dispensed Refills Start Date Active folic acid (FOLVITE) 800 Take 400 mcg 0 MCG tablet by mouth daily. Active atorvastatin (LIPITOR) 20 Take 20 mg by 0 MG tablet mouth daily. Active multivit-min/FA/lycopen/l Take 1 tablet 0 utein (CENTRUM SILVER MEN by mouth ORAL) daily. Active escitalopram oxalate Take 1 tablet 0 (LEXAPRO) 10 MG tablet by mouth 9 daily. Active memantine (NAMENDA) 5 MG Take 1 tablet 0 tablet by mouth 9 daily. 01/20/2019 Active dexAMETHasone (DECADRON) Take 1 tablet 60 tablet 0 4 MG tablet (4 mg total) 9 by mouth every 12 (twelve) hours for 30 days. 01/20/2019 Active baclofen 5 mg Tab Take 5 mg by 90 tablet 0 mouth 3 9 (three) times daily for 30 days. 12/21/2018 Discontinued irbesartan (AVAPRO) 300 Take 300 mg 0 MG tablet by mouth daily. 12/06/2018 Discontinued omeprazole (PRILOSEC) 20 Take 20 mg by 0 MG capsule mouth daily. 12/21/2018 Discontinued aspirin 81 MG EC tablet Take 81 mg by 0 mouth daily. 12/21/2018 Discontinued baclofen 5 mg Tab Take 5 mg by 42 tablet 0 mouth 3 9 (three) times daily as needed (hiccups) for up to 14 days. 12/21/2018 Discontinued dexamethasone (DECADRON) Take 1 tablet 84 tablet 0 4 MG tablet (4 mg total) 9 by mouth every 6 (six) hours for 21 days. 12/29/2018 pantoprazole (PROTONIX) Take 1 tablet 30 tablet 0 40 MG tablet (40 mg total) 9 by mouth every morning before breakfast for 30 days. 12/26/2018 HYDROcodone-acetaminophen Take 1 tablet 30 tablet 0 (NORCO 5-325) 5-325 mg by mouth 9 per tablet every 4 (four) hours as needed for up to 5 days. Max Daily Amount: 6 tablets Active Problems Problem Noted Date Primary adenocarcinoma of right lung 12/07/2018 Brain metastases 12/07/2018 Spontaneous pneumothorax 12/07/2018 Secondary spontaneous pneumothorax 12/06/2018 Brain mass 11/17/2018 Encounters Care Team Description Date Type Specialty Nitza Rowland, YOSI 12/31/2018 Documentation Radiation Oncology Jesenia Whittington MD Primary lung cancer with metastasis from lung to other site, right (HCC) (Primary Dx) 12/26/2018 Outside Orders Central Scheduling Leida Mcintosh MD BRONCHOSCOPY,INSERTION BRONCHIAL VALVE 12/17/2018 Surgery Denise Shirley, MURTAZA 12/17/2018 Anesthesia Event Jorge King MD Arrived 12/16/2018 Procedure visit Radiation Oncology Hussain Willson MD Ancy, Kayley Marie Clemings, MD Pathak, Yashash D Arif, Sahar, MD Brain metastases (HCC) (Primary Dx); Primary adenocarcinoma of right lung (HCC); Secondary spontaneous pneumothorax; Spontaneous pneumothorax; Chronic obstructive pulmonary disease, unspecified COPD type (HCC) 12/06/2018 Hospital Cardiology - Encounter 12/21/2018 12/06/2018 Travel Hussain Willson MD Shortness of Breath 12/06/2018 Telephone Internal Medicine Jorge King MD Arrived 12/04/2018 Procedure visit Radiation Oncology Jorge King MD Arrived 12/02/2018 Procedure visit Radiation Oncology Fiordaliza Kemp CRNA 11/26/2018 Anesthesia Event Leida Mcintosh MD BRONCHOSCOPY,TRANSBRONCHIAL NEEDLE ASPIRATION BIOPSY 11/26/2018 Surgery Sunday Paris, MURTAZA 11/22/2018 Anesthesia Event Leida Mcintosh MD BRONCHOSCOPY,ENDOBRONCHIAL ULTRASOUND (EBUS) TRANSTRACH/ TRANSBRONCH SAMPLING 11/22/2018 Surgery Trung Duvall, BRICK SETTER OPERATOR 11/18/2018 Anesthesia Event Virtual, Surgeon PROCEDURE DONE OUTSIDE OR 11/18/2018 Surgery Jonny Gottlieb MD Bhattarai, Alok, MD Tirukkovalluri, Srilakshmi, MD Adio, Julio Martinez MD Brain mass; Cerebral edema (HCC); Encephalopathy; Lung mass; Centrilobular emphysema (HCC); Smoker; Non-small cell lung cancer with metastasis (HCC); Non-small cell lung cancer, unspecified laterality (HCC); Goals of care, counseling/discussion 11/17/2018 [facility] General Internal Medicine - Encounter 11/28/2018 11/17/2018 Travel after 12/31/2017 Social History Date Tobacco Use Types Packs/Day [...] Vital Signs Time Taken Vital Sign Reading 12/21/2018 2:50 PM CDT Blood Pressure 109/56 12/21/2018 3:49 PM CDT Pulse 88 12/21/2018 2:50 PM CDT Temperature 35.8 C (96.4 F) 12/21/2018 3:49 PM CDT Respiratory Rate 12 12/21/2018 3:49 PM CDT Oxygen Saturation 98% 12/08/2018 7:30 PM CDT Inhaled Oxygen 32% Concentration 12/19/2018 3:41 AM CDT Weight 56.9 kg (125 lb 6.4 oz) 12/11/2018 8:13 PM CDT Height 170 cm (5' 6.93") 12/19/2018 3:41 AM CDT Body Mass Index 19.68 Plan of Treatment Care Team Description Date Type Specialty Jesenia Whittington MD [address] [id number] 01/01/2019 Hospital Computed Tomography Encounter Jesenia Whittington MD [address] [address] [address] Room 01/01/2019 Appointment Computed Tomography KingJorge mcintosh MD [facility] [place], [place] [id number] 01/16/2019 Procedure visit Radiation Oncology Implants Device Identifier Shelf Expiration Date Model / Serial / Lot Implanted Type Area [facility] 03/17/2021 REF-HUS-V6 / / [id number] Valve Sys Ibv 6mm [facility] Ref-Hus-V6 - IMPLANTS N/A: Trachea SPIRATION [id number] Implanted: Qty: 1 on 12/17/2018 by Leida Mcintosh MD 11/15/2020 REF-HUS-V7 / / [id number] Valve Sys Ibv 7mm [facility] Ref-Hus-V7 - IMPLANTS N/A: Trachea SPIRATION [id number] Implanted: Qty: 1 on 12/17/2018 by Leida Mcintosh MD Procedures Comments Procedure Name Priority Date/Time Associated Diagnosis XR CHEST 1 VIEW Routine 12/21/2018 PORTABLE/BEDSIDE 5:23 AM CDT XR CHEST 1 VIEW Routine 12/20/2018 PORTABLE/BEDSIDE 1:21 PM CDT XR CHEST 1 VIEW Routine 12/20/2018 PORTABLE/BEDSIDE 6:50 AM CDT CBC W/PLT COUNT & AUTO Routine 12/20/2018 DIFFERENTIAL 5:49 AM CDT BASIC METABOLIC PANEL (7) Routine 12/20/2018 5:49 AM CDT CBC W/PLT COUNT & AUTO Routine 12/20/2018 DIFFERENTIAL 5:49 AM CDT XR CHEST 1 VIEW Routine 12/19/2018 PORTABLE/BEDSIDE 5:05 PM CDT XR CHEST 1 VIEW BRANT 12/19/2018 PORTABLE/BEDSIDE 11:47 AM CDT XR CHEST 1 VIEW Routine 12/19/2018 PORTABLE/BEDSIDE 5:23 AM CDT TRANSFUSION SERVICE 12/18/2018 REPORT - SCAN 5:50 PM CDT XR CHEST 1 VIEW Routine 12/18/2018 PORTABLE/BEDSIDE 3:49 PM CDT XR CHEST 1 VIEW Routine 12/18/2018 PORTABLE/BEDSIDE 6:10 AM CDT CBC W/PLT COUNT & AUTO Routine 12/18/2018 DIFFERENTIAL 4:37 AM CDT BASIC METABOLIC PANEL (7) Routine 12/18/2018 4:37 AM CDT CBC W/PLT COUNT & AUTO Routine 12/18/2018 DIFFERENTIAL 4:37 AM CDT XR CHEST 1 VIEW STAT 12/17/2018 PORTABLE/BEDSIDE 2:36 PM CDT REPORT OF PROCEDURE - 12/17/2018 ENDOSCOPY URL 2:04 PM CDT BRONCHOSCOPY,INSERTION 12/17/2018 Malignant neoplasm of BRONCHIAL VALVE 1:00 PM CDT lung, unspecified laterality, unspecified part of lung (HCC) Secondary spontaneous pneumothorax CBC W/PLT COUNT & AUTO STAT 12/17/2018 DIFFERENTIAL 6:08 AM CDT TYPE AND SCREEN, STAT 12/17/2018 AUTOMATED 6:08 AM CDT BASIC METABOLIC PANEL (7) Routine 12/17/2018 6:08 AM CDT APTT STAT 12/17/2018 6:08 AM CDT PROTHROMBIN TIME/INR STAT 12/17/2018 6:08 AM CDT CBC W/PLT COUNT & AUTO STAT 12/17/2018 DIFFERENTIAL 6:08 AM CDT OSMOLALITY, SERUM Routine 12/17/2018 6:08 AM CDT XR CHEST 1 VIEW Routine 12/17/2018 PORTABLE/BEDSIDE 5:22 AM CDT SODIUM, RANDOM URINE Routine 12/16/2018 10:11 PM CDT OSMOLALITY, URINE Routine 12/16/2018 10:11 PM CDT XR CHEST 1 VIEW Routine 12/16/2018 PORTABLE/BEDSIDE 10:03 AM CDT CBC W/PLT COUNT & AUTO Routine 12/16/2018 DIFFERENTIAL 5:58 AM CDT BASIC METABOLIC PANEL (7) Routine 12/16/2018 5:58 AM CDT CBC W/PLT COUNT & AUTO Routine 12/16/2018 DIFFERENTIAL 5:58 AM CDT XR CHEST 1 VIEW Routine 12/15/2018 PORTABLE/BEDSIDE 5:47 AM CDT XR CHEST 1 VIEW Routine 12/14/2018 PORTABLE/BEDSIDE 6:07 AM CDT XR CHEST 1 VIEW Routine 12/13/2018 PORTABLE/BEDSIDE 7:27 AM CDT CBC W/PLT COUNT & AUTO Routine 12/13/2018 DIFFERENTIAL 6:36 AM CDT BASIC METABOLIC PANEL (7) Routine 12/13/2018 6:36 AM CDT CBC W/PLT COUNT & AUTO Routine 12/13/2018 DIFFERENTIAL 6:36 AM CDT XR CHEST 1 VIEW Routine 12/12/2018 PORTABLE/BEDSIDE 10:22 AM CDT XR CHEST 1 VIEW Routine 12/12/2018 PORTABLE/BEDSIDE 5:50 AM CDT XR CHEST 1 VIEW STAT 12/11/2018 PORTABLE/BEDSIDE 6:10 AM CDT CBC W/PLT COUNT & AUTO Routine 12/11/2018 DIFFERENTIAL 4:40 AM CDT BASIC METABOLIC PANEL (7) Routine 12/11/2018 4:40 AM CDT CBC W/PLT COUNT & AUTO Routine 12/11/2018 DIFFERENTIAL 4:40 AM CDT XR CHEST 1 VIEW Routine 12/10/2018 PORTABLE/BEDSIDE 6:48 AM CDT XR CHEST 1 VIEW STAT 12/09/2018 PORTABLE/BEDSIDE 2:40 PM CDT XR CHEST 1 VIEW Routine 12/09/2018 PORTABLE/BEDSIDE 6:58 AM CDT CBC (HEMOGRAM ONLY) Routine 12/09/2018 4:08 AM CDT MAGNESIUM Routine 12/09/2018 4:08 AM CDT BASIC METABOLIC PANEL (7) Routine 12/09/2018 4:08 AM CDT XR CHEST 1 VIEW Routine 12/08/2018 PORTABLE/BEDSIDE 4:29 AM CDT CBC (HEMOGRAM ONLY) Routine 12/08/2018 4:27 AM CDT MAGNESIUM Routine 12/08/2018 4:27 AM CDT BASIC METABOLIC PANEL (7) Routine 12/08/2018 4:27 AM CDT PROCALCITONIN Routine 12/07/2018 4:20 AM CDT CBC (HEMOGRAM ONLY) Routine 12/07/2018 4:20 AM CDT PT/APTT Routine 12/07/2018 4:20 AM CDT MAGNESIUM Routine 12/07/2018 4:20 AM CDT BASIC METABOLIC PANEL (7) Routine 12/07/2018 4:20 AM CDT XR CHEST 1 VIEW STAT 12/06/2018 PORTABLE/BEDSIDE 9:36 PM CDT RHYTHM STRIP - SCAN 11/29/2018 11:11 AM [...] Routine 11/26/2018 CLINICIAN 12:28 PM CDT FL BROADCAST OPERATIONS ENGINEER IN OR 30 Routine 11/26/2018 MINUTE INCREMENTS [...] I Routine 11/17/2018 4:06 AM CDT after 12/31/2017 Results * XR chest 1 view portable / bedside (12/21/2018 5:23 AM CDT) Only the most recent of 23 results within the time period is included. Specimen Narrative Performed At FINAL REPORT [facility] TECHNIQUE: Frontal view of the chest. INDICATION: 58-year-old man with pneumothorax. COMPARISON: Chest radiograph 12/20/2018. FINDINGS: LINES/TUBES: Unchanged. LUNGS: Unchanged cavitary nodular opacity in the right upper lung zone. Persistent interstitial prominence bilaterally and patchy airspace opacities in the left midlung zone. PLEURA: Increased size of the right pneumothorax with a maximal air gap 2.7 cm, previously 1.8 cm. No significant pleural effusion. HEART AND MEDIASTINUM: The cardiomediastinal silhouette is unchanged. Atherosclerotic calcifications in the thoracic aorta. SOFT TISSUES AND BONES: Unremarkable. IMPRESSION: Increased right pneumothorax. Otherwise, no significant change since 12/20/2018. Signed: Zelalem Godoy MD Report Verified Date/Time:12/21/2018 07:48:59 Reading Location: [facility] C0Y CT Body Reading Room Procedure Note Interface, External Ris In - 12/21/2018 7:51 AM CDT FINAL REPORT TECHNIQUE: Frontal view of the chest. INDICATION: 58-year-old man with pneumothorax. COMPARISON: Chest radiograph 12/20/2018. FINDINGS: LINES/TUBES: Unchanged. LUNGS: Unchanged cavitary nodular opacity in the right upper lung zone. Persistent interstitial prominence bilaterally and patchy airspace opacities in the left midlung zone. PLEURA: Increased size of the right pneumothorax with a maximal air gap 2.7 cm, previously 1.8 cm. No significant pleural effusion. HEART AND MEDIASTINUM: The cardiomediastinal silhouette is unchanged. Atherosclerotic calcifications in the thoracic aorta. SOFT TISSUES AND BONES: Unremarkable. IMPRESSION: Increased right pneumothorax. Otherwise, no significant change since 12/20/2018. Signed: Zelalem Godoy MD Report Verified Date/Time: 12/21/2018 07:48:59 Reading Location: [facility] C013Y CT Body Reading Room Performing Organization Address City/State/Zipcode Phone Number [facility] * CBC with platelet count + automated diff (12/20/2018 5:49 AM CDT) Only the most recent of 17 results within the time period is included. WBC 12.7 (H) 3.5 - 10.5 K/L [facility] RBC 3.56 (L) 4.63 - 6.08 M/L [facility] Hemoglobin 11.5 (L) 13.7 - 17.5 GM/DL [facility] Hematocrit 34.1 (L) 40.1 - 51.0 % [facility] MCV 95.8 (H) 79.0 - 92.2 fL [facility] MCH 32.3 (H) 25.7 - 32.2 pg [facility] MCHC 33.7 32.3 - 36.5 GM/DL [facility] RDW 13.1 11.6 - 14.4 % [facility] Platelets 222 150 - 450 K/CU MM [facility] MPV 9.5 9.4 - 12.4 fL [facility] nRBC 0 0 - 0 /100 WBC [facility] % Neutros 87 % [facility] % Lymphs 8 % [facility] % Monos 3 % [facility] % Eos 0 % [facility] % Baso 0 % [facility] # Neutros 10.96 (H) 1.78 - 5.38 K/L [facility] # Lymphs 0.97 (L) 1.32 - 3.57 K/L [facility] # Monos 0.32 0.30 - 0.82 K/L [facility] # Eos 0.02 (L) 0.04 - 0.54 K/L [facility] # Baso 0.02 0.01 - 0.08 K/L [facility] Immature 3 (H) 0 - 1 % [facility] Granulocytes-[facility] Specimen Blood Performing Organization Address City/State/Zipcode Phone Number [facility] [address] [place] [address] [phone] [place] [address] * Basic Metabolic Panel (12/20/2018 5:49 AM CDT) Only the most recent of 20 results within the time period is included. Sodium 131 (L) 136 - 145 meq/L [facility] Potassium 3.9 3.5 - 5.1 meq/L [facility] Chloride 99 98 - 107 meq/L [facility] CO2 24 22 - 29 meq/L [facility] BUN 18 7 - 21 mg/dL [facility] Creatinine 0.47 (L) 0.57 - 1.25 mg/dL [facility] Glucose 119 (H) 70 - 105 mg/dL [facility] Calcium 7.9 (L) 8.4 - 10.2 mg/dL [facility] EGFR Comment: INSUFFICIENT CLINICAL mL/min/1.73 sq m [facility] DATA TO CALCULATE ESTIMATED [facility] GFR. Specimen Blood Performing Organization Address City/[facility] Cent[facility] Phone Number [address] * TRANSFUSION SERVICE REPORT - SCAN (12/18/2018 5:50 PM CDT) Only the most recent of 2 results within the time period is included. Narrative Performed At * REPORT OF PROCEDURE - ENDOSCOPY URL (12/17/2018 2:04 PM CDT) Narrative Performed At * Type and screen, automated (12/17/2018 6:08 AM CDT) Only the most recent of 2 results within the time period is included. ABO/RH AUTOMATED (BEAKER) O POSITIVE [facility] Ab Scrn NEGATIVE [facility] Specimen Blood Performing Organization Address City/[facility]/Zipcode Phone Number [phone] [place] [address] * aPTT (12/17/2018 6:08 AM CDT) Only the most recent of 2 results within the time period is included. PTT 30.8 22.5 - 36.0 seconds [facility] Specimen Blood Performing Organization Address [facility] Centerc[facility]y Phone Number [address] [address] [facility] * Prothrombin time/INR (12/17/2018 6:08 AM CDT) Only the most recent of 2 results within the time period is included. Protime 13.6 11.9 - 14.2 seconds [facility] INR 1.1 <=5.9 [facility] Specimen Blood Narrative Performed At Effective 11/13/2018: PT Reference Range Change [facility] New: 11.9-14.2Previous: 11.7-14.7 [facility] RECOMMENDED COUMADIN/WARFARIN INR THERAPY RANGES STANDARD DOSE: 2.0-3.0Includes: PROPHYLAXIS for venous thrombosis, systemic embolization; TREATMENT for venous thrombosis and/or pulmonary embolus. HIGH RISK: Target INR is 2.5-3.5 for patients wiht mechanical heart valves. Performing Organization Address [facility] Phone Number [address] [address] [facility] * Osmolality, serum (12/17/2018 6:08 AM CDT) Osmolality Serum 280 275 - 295 mOsm/kg [facility] Specimen Blood Performing Organization Address [facility] Centercode Phone Number [address] [address] [facility] * Sodium, random urine (12/16/2018 10:11 PM CDT) Sodium Urine 89 meq/L [facility] Specimen Urine Narrative Performed At Reference Range: No Normals [facility] Performing Organization Address [facility] Centercode Phone Number [address] [address] [facility] * Osmolality, urine (12/16/2018 10:11 PM CDT) Osmolality, Ur 1,063 40-1,400 mOsm/kg [facility] Specimen Urine Performing Organization Address City/[facility] Centercode Phone [place] [address] [facility] * CBC (Hemogram only) (12/09/2018 4:08 AM CDT) Only the most recent of 3 results within the time period is included. WBC 12.8 (H) 3.5 - 10.5 K/L [facility] RBC 3.75 (L) 4.63 - 6.08 M/L [facility] Hemoglobin 12.3 (L) 13.7 - 17.5 GM/DL [facility] Hematocrit 36.4 (L) 40.1 - 51.0 % [facility] MCV 97.1 (H) 79.0 - 92.2 fL [facility] MCH 32.8 (H) 25.7 - 32.2 pg [facility] MCHC 33.8 32.3 - 36.5 GM/DL [facility] RDW 13.3 11.6 - 14.4 % [facility] Platelets 218 150 - 450 K/CU MM [facility] MPV 9.8 9.4 - 12.4 fL [facility] nRBC 0 0 - 0 /100 WBC [facility] Specimen Blood Performing Organization Address City/[facility]/Zipcode Phone [place] [address] [facility] * Magnesium (12/09/2018 4:08 AM CDT) Only the most recent of 6 results within the time period is included. Magnesium 2.0Comment: Specimen slightly 1.6 - 2.6 mg/dL [facility] hemolyzed [facility] Specimen Blood Performing Organization Address City/State/Zipcode Phone Number [address] [address] [facility] * Procalcitonin (12/07/2018 4:20 AM CDT) Procalcitonin <0.05 <0.05 ng/mL [facility] Specimen Blood Narrative Performed At SEPSIS RISK (ng/mL) [facility] Low:0.05-0.50 [facility] Intermediate: 0.51-2.00 High: >=2.01 Performing Organization Address [facility] Phone Number [address] [address] [phone] * PT/aPTT (12/07/2018 4:20 AM CDT) Only the most recent of 2 results within the time period is included. Protime 14.6 (H) 11.9 - 14.2 seconds [facility] INR 1.2 <=5.9 [facility] PTT 32.2 22.5 - 36.0 seconds [facility] Specimen Blood Narrative Performed At Effective 11/13/2018: PT Reference Range Change [facility] New: 11.9-14.2Previous: 11.7-14.7 [facility] RECOMMENDED COUMADIN/WARFARIN INR THERAPY RANGES STANDARD DOSE: 2.0-3.0Includes: PROPHYLAXIS for venous thrombosis, systemic embolization; TREATMENT for venous thrombosis and/or pulmonary embolus. HIGH RISK: Target INR is 2.5-3.5 for patients wiht mechanical heart valves. Performing Organization Address City/[facility] Centercode Phone Number [place] [phone] [place] [address] [facility] * RHYTHM STRIP - SCAN (11/29/2018 11:11 AM CDT) Narrative Performed At * POC-Glucose meter (11/28/2018 1:18 PM CDT) Only the most recent of 41 results within the time period is included. POC-Glucose Meter 105Comment: TESTED AT [facility] 70 - 110 mg/dL [address] [address] [facility] Specimen Blood Performing Organization Address City/State/Zipcode Phone Number [facility] [address] [place], [place] [phone] [facility] * Coccidioides antibodies (11/28/2018 5:45 AM [...] year thereafter. Specimen Blood Narrative Performed At [facility] *Gravity [employer] [facility] [id number] [place] [phone] Vlad Cazares MD Performing Organization Address [facility] Phone Number [facility], [address] [place] [address] [employer] [address] * Blastomyces antibody (11/26/2018 2:21 PM CDT) Blastomyces Ab,Id NEGATIVE [facility] Comment: INCORPORATED REFERENCE RANGE: NEGATIVE INTERPRETIVE CRITERIA: NEGATIVE: Antibody Not Detected POSITIVE: Antibody Detected A positive result is diagnostic of active or recent blastomycosis and is found in approximately 80% of proven cases of blastomycosis. Specimen Blood Narrative Performed At [facility] *QD[employer] [facility] [address] [place] [phone] Vlad Cazares MD Performing Organization Address City/[facility]/Zipcode Phone Number [facility] [place], [address] [facility] [address] * Aspergillus galactomannan antigen (11/26/2018 2:21 PM CDT) Aspergillus Index Value <0.50 [facility] Aspergillus Antigen NOT DETECTED [facility] Comment: INCORPORATED REFERENCE RANGE: <0.50, NOT DETECTED A negative result does not exclude invasive aspergillosis. Follow-up testing may be indicated for high-risk patients. Specimen Blood Narrative Performed At Performing Lab [facility] *QD[employer] INCOR[employer]ATED [facility] [address] [place] [address] Vlad Cazares MD Performing Organization Address City/State/Zipcode Phone Number [facility], [address] [facility] [address] * REPORT OF PROCEDURE - ENDOSCOPY URL (11/26/2018 12:37 PM CDT) Narrative Performed At * CYTOLOGY REQUEST (11/26/2018 12:29 PM CDT) Only the most recent of 2 results within the time period is included. Cytology See Separate Report [facility] Specimen BAL Performing Organization Address City/[facility]/Zipcode Phone [place] [address] [facility] * Cytology (11/26/2018 12:29 PM CDT) Only the most recent of 2 results within the time period is included. Case Report Medical Cytology [facility] Report [facility] Case: [id number] Authorizing Provider:eLida Mcintosh MDCollected: 11/26/2018 1229 Ordering Location: [facility] PERIOPERATIVE Received: 11/26/2018 1305 SERVICES Pathologist: Ubaldo Ortiz MD Specimen:Lung, Right Upper Lobe, BAL DIAGNOSIS LUNG, RIGHT UPPER LOBE, BAL [facility] (CYTOSPINS): [facility] - NON SMALL CELL CARCINOMA, POORLY DIFFERENTIATED, WITH DEGENERATIVE FEATURES Signing Pathologist Direct Phone Line: [phone] COMMENT Please also see surgical [facility] pathology report [id number] and [facility] cytopathology report [id number]. CPT Code(s) 22530 [facility] CLINICAL DATA Lung mass [facility] SPECIMEN SOURCE LUNG, RIGHT UPPER LOBE BAL [facility] GROSS DESCRIPTION Prepared 4 cytospins from 15 [facility] ml blood-tinged fluid [facility] Collected: [id number] Received: [id number] MICROSCOPIC DESCRIPTION Few degenerating atypical [facility] cells consistent with [facility] non-small cell carcinoma are present. Benign bronchial epithelial cells and macrophages are present in background. STATEMENT OF ADEQUACY Satisfactory [facility] Gross assessment was [facility] performed at [place], Department of [facility] Pathology, [address] [place] [phone], Technical component was [facility] performed at [place], Department of [facility] Pathology, [address] [place] [phone], Professional component [facility] was performed at [place], Department of [facility] HOSPITAL Pathology, [address] [place] [address], Specimen BAL Narrative Performed At Performing Organization Address City/[facility]/Zipcode Phone Number [address] [phone] [facility] * Surgically obtained culture + gram stain (11/26/2018 12:28 PM CDT) Only the most recent of 2 results within the time period is included. Result <1+ Viridans Streptococcus (A) [facility] Gram Stain Result No WBCs [facility] Gram Stain Result No organisms seen [facility] Specimen Fine Needle Aspirate Performing Organization Address City/[facility]/Zipcode Phone Number [address] [phone] [facility] * Fungus culture + smear (11/26/2018 12:28 PM CDT) Only the most recent of 3 results within the time period is included. Result No fungus isolated in 28 days [facility] Fungus Smear No fungi seen [facility] Specimen Fine Needle Aspirate Performing Organization Address City/State/Zipcode Phone Number [facility] [address] [place] [address] [facility] * FINE NEEDLE ASPIRATE (FNA) REQUEST (11/26/2018 12:28 PM CDT) Cytology See Separate Report [facility] Specimen Fine Needle Aspirate Performing Organization Address City/[facility]/Zipcode Phone Number [facility] [address] [place] [address] [facility] * [place] electronic instrument trades worker in or 30 minute increments (11/26/2018 12:28 PM CDT) Specimen Narrative Performed At FLUOROSCOPIC UNIT UTILIZED-NO INTERPRETATION REQUESTED. GE [facility] Procedure Note Interface, External Ris In - 12/02/2018 5:13 PM CDT FLUOROSCOPIC UNIT UTILIZED-NO INTERPRETATION REQUESTED. Performing Organization Address [facility] Phone Number GE [facility] * Fine Needle Aspirate by Clinician (11/26/2018 12:28 PM CDT) Case Report Medical Cytology [facility] Report [facility] Case: [id number] Authorizing Provider:Leida Mcintosh MDCollected: 11/26/2018 1228 Ordering Location: [facility] Received: 11/26/2018 1305 SERVICES Pathologist: Ubaldo Ortiz MD Specimen:Lung, Right Upper Lobe DIAGNOSIS LUNG, RIGHT UPPER LOBE, FNA BY [facility] CLINICIAN (CYTOSPINS AND CELL [facility] BLOCK OF ASPIRATE): - NON SMALL CELL CARCINOMA, POORLY DIFFERENTIATED Signing Pathologist Direct Phone Line: [phone] COMMENT Please also see surgical [facility] pathology report [id number] and [facility] cytopathology report [id number]. CPT Code(s) 01454, 56486 [facility] CLINICAL DATA Lung mass [facility] SPECIMEN SOURCE LUNG, RIGHT UPPER LOBE FNA [facility] GROSS DESCRIPTION Prepared cell block(A2) and 2 [facility] cytospins from 42 ml cytorich [facility] red fixative sample Collected: [id number] Received: [id number] SPECIAL STUDIES The interpretation of this [facility] case included the use of [facility] immunohistochemistry or special stains. Control Slides Examined: In-house known positive controls were evaluated along with the test tissue. These control slides run alongside of the patients sample show appropriate staining. Internal positive and negative controls when available are evaluated Immunohistochemistry technical testing was performed at [facility], Pathology Laboratory where it was developed [...] complexity clinical laboratory testing. Gross assessment was [facility] performed at [place], [facility] Pathology, [address] [place] [address], Technical component was [facility] performed at [place], Department [facility] Pathology, [address] [place] [address], Professional component [facility] was performed at [place], [facility] Pathology, [address] [place] [address], Specimen Fine Needle Aspirate Narrative Performed At Performing Organization Address City/State/Zipcode Phone Number [address] [address] [facility] * Tissue Exam (11/26/2018 12:27 PM CDT) Case Report Surgical Pathology [facility] Report [facility] Case: [id number] Authorizing Provider:Leida Mcintosh MDCollected: 11/26/2018 1227 Ordering Location: [facility] Received: 11/26/2018 1307 SERVICES Pathologist: Nasra Plummer MD Specimen:Lung, Right Upper Lobe, TBBX, process in cytology for colloidion bag, reflex genetic markers ADDENDUM 2 This addendum is issued to [facility] report results of pending [facility] biomarker study performed at [facility]. RESULT: - NTRK1, NTRK2, NTRK3 ALTERATIONS: NOT DETECTED Please see scanned report for further information. ADDENDUM This addendum is being issued [facility] to report the results of [facility] biomarker testing performed at [facility]. RESULT: - EGFR mutation: NOT DETECTED - BRAF mutation: NOT DETECTED - FISH analysis for ALK gene rearrangement is NEGATIVE - FISH analysis for ROS1 gene rearrangement is NEGATIVE - [facility] for PDL-1 (22C3 clone) is HIGH (90%, 3+) Please refer to attached scanned report for further results. DIAGNOSIS A. LUNG, RIGHT UPPER LOBE, [facility] TRANSBRONCHIAL BIOPSY: [facility] - ADENOCARCINOMA, CONSISTENT WITH PULMONARY PRIMARY (SEE COMMENT) Signing Pathologist Direct Phone Line: [phone] COMMENT A. Immunostain for TTF1 is [facility] positive and p40 is negative, [facility] supporting the above diagnosis. CPT Code(s) 60912 [facility] [address] [facility] [address] CLINICAL HISTORY Lung mass [facility] SPECIMEN SOURCE A. Right upper lobe lung [facility] transbronchial biopsy [facility] GROSS DESCRIPTION Specimen A: The specimen is [facility] received in a formalin-filled [facility] container and labeled with the patient's [...] in a collodion bag. MICROSCOPIC DESCRIPTION Performed. [facility] SPECIAL STUDIES The interpretation of this [facility] case included the use of [facility] immunohistochemistry or special stains. Control Slides Examined: In-house known positive controls were evaluated along with the test tissue. These control slides run alongside of the patients sample show appropriate staining. Internal positive and negative controls when available are evaluated Immunohistochemistry technical testing was performed at [facility], Pathology Laboratory where it was developed [...] complexity clinical laboratory testing. Gross assessment was [facility] performed at [place], [facility] Pathology, [address] [place] [address], Technical component was [facility] performed at [place], [facility] Pathology, [address] [place] [address], Professional component [facility] was performed at [place], [facility] Pathology, [address] [place] [address], Specimen Tissue Narrative Performed At Performing Organization Address City/State/Zipcode [place] [address] [facility] * [employer], Tim, Crissy pcr (11/26/2018 8:30 AM CDT) Scan Result [facility] Specimen Tissue Narrative Performed At Performing Organization Address City/State/Zipcode Phone Number [facility] [address] [place], [place] * ABORH, manual (11/26/2018 5:59 AM CDT) ABO Grouping O [facility] Rh Factor POS [facility] Specimen Blood Performing Organization Address City/State/Zipcode Phone Number [facility] [address] [place] [address] MEDICAL CENTER * Comprehensive metabolic panel (11/26/2018 5:13 AM CDT) Protein, Total 5.6 (L) 6.0 - 8.3 gm/dL [facility] Albumin 3.3 (L) 3.5 - 5.0 g/dL [facility] Alkaline Phosphatase 55 40 - 150 U/L [facility] Total Bilirubin 0.6 0.2 - 1.2 mg/dL [facility] Sodium 134 (L) 136 - 145 meq/L [facility] Potassium 3.9 3.5 - 5.1 meq/L [facility] Chloride 104 98 - 107 meq/L [facility] CO2 25 22 - 29 meq/L [facility] BUN 24 (H) 7 - 21 mg/dL [facility] Creatinine 0.64 0.57 - 1.25 mg/dL [facility] Glucose 111 (H) 70 - 105 mg/dL [facility] Calcium 8.2 (L) 8.4 - 10.2 mg/dL [facility] AST 11 5 - 34 U/L [facility] ALT 21 6 - 55 U/L [facility] EGFR Comment: INSUFFICIENT CLINICAL mL/min/1.73 sq m [facility] DATA TO CALCULATE ESTIMATED [facility] GFR. Specimen Blood Performing Organization Address City/State/Zipcode Phone Number [facility] [address] [place] [address] [facility] * CT chest without IV contrast (11/22/2018 6:03 PM CDT) Specimen Narrative Performed At FINAL REPORT [facility] CT of the Chest dated 11/22/2018 COMPARISON: [...] MD Report Verified Date/Time:11/22/2018 19:04:17 Reading Location: [address] Body Reading Room Procedure Note [...] Report Verified Date/Time: 11/22/2018 19:04:17 Reading Location: [facility] C013Y CT Body Reading Room Performing Organization Address City/[facility] Cent[facility] Phone Number [facility] * SPIN/CONCENTRATION CHARGE (11/22/2018 12:58 PM CDT) Only the most recent of 3 results within the time period is included. Concentration charged Done [facility] Specimen Sputum - Expectorated Performing Organization Address City/[facility]/[employer] Phone [place] [phone] [place] [address] * REPORT OF PROCEDURE - ENDOSCOPY URL (11/22/2018 12:53 PM CDT) Narrative Performed At * EBUS FNA REQUEST (11/22/2018 8:20 AM CDT) Only the most recent of 2 results within the time period is included. Cytology See Separate Report [facility] Specimen EBUS Fine Needle Aspirate - Lymph Node, Interlobar, Right, Station 11R Performing Organization Address [facility] Centerc[facility]y Phone Number [address] [address] [phone] [place] [address] * Fine Needle Aspiration by EBUS (11/22/2018 8:20 AM CDT) Only the most recent of 2 results within the time period is included. Case Report Medical Cytology [facility] Case: [id number] Authorizing Provider:Leida Mcintosh MDCollected: 11/22/2018 0820 Ordering Location: [address] Received: 11/22/2018 0854 Service Pathologist: Ubaldo Ortiz MD Specimen:Lymph Node, Interlobar, Right, Station 11R DIAGNOSIS LYMPH NODE, INTERLOBAR RIGHT, [facility] STATION 11R EBUS FNA BY [facility] CLINICIAN (CYTOSPINS AND CELL BLOCK OF ASPIRATE): - LYMPHOCYTES PRESENT - NO MALIGNANT CELLS IDENTIFIED Signing Pathologist Direct Phone Line: [phone] COMMENT Please see cytopathology cases [facility] [id number] and [id number] [facility] CPT Code(s) 73433, 63441 [facility] CLINICAL DATA Lung Mass, mediastinal [facility] lymphadenopathy, adrenal and [facility] brain masses. Presumed lung cancer with mets. SPECIMEN SOURCE LYMPH NODE, INTERLOBAR RIGHT, [facility] STATION 11R EBUS FNA [facility] GROSS DESCRIPTION 35 mls in cytorich red; 2 [facility] cytospins, cell block [facility] (collodion bag) Collected: [id number] Received: [id number] SPECIAL STUDIES The interpretation of this [facility] case included the use of [facility] immunohistochemistry or special stains. Control Slides Examined: In-house known positive controls were evaluated along with the test tissue. These control slides run alongside of the patients sample show appropriate staining. Internal positive and negative controls when available are evaluated Immunohistochemistry technical testing was performed at [facility], Pathology Laboratory where it was developed [...] complexity clinical laboratory testing. Gross assessment was [facility] performed at [place], Department of [facility] Pathology, [address] [place] [address], [place] [address], Technical component [facility] at [place], Department of [facility] Pathology, [address] [place] [address], Professional component [facility] was performed at [place], Department of [facility] Pathology, [address] [place] [address], Specimen EBUS Fine Needle Aspirate - Lymph Node, Interlobar, Right, Station 11R Narrative Performed At Performing Organization Address City/State/Zipcode Phone Number [address] [phone] [facility] * Bronchial culture + gram stain (11/22/2018 8:04 AM CDT) Result 3+ Normal respiratory selam [facility] present [facility] Gram Stain Result <1+ WBCs [facility] Gram Stain Result No organisms seen [facility] Specimen BAL Performing Organization Address City/State/Zipcode Phone Number [address] [address] [facility] * Phosphorus (11/20/2018 4:55 AM CDT) Only the most recent of 3 results within the time period is included. Phosphorus 3.3 2.3 - 4.7 mg/dL [facility] Specimen Blood Narrative Performed At Check Serum Phosphorus level 4 hours after IV phosphorus replacement or 8 hours [facility] after PO replacement completed. [facility] Performing Organization Address City/State/Zipcode Phone Number [address] [address] [facility] * [place] bone scan whole body (11/19/2018 4:43 PM CDT) Specimen Narrative Performed At FINAL REPORT [facility] PROCEDURE: BONE SCAN, WHOLE BODY CPT CODE:91861 INDICATION:Lung mass,neoplasm within the head, chest, and [...] MD Report Verified Date/Time:11/19/2018 17:29:03 Reading Location: [address] Reading Room Procedure Note Interface, External Ris In - 11/19/2018 5:31 PM CDT FINAL REPORT PROCEDURE: BONE SCAN, WHOLE BODY CPT CODE: 97094 INDICATION: Lung mass, neoplasm within the head, [...] Report Verified Date/Time: 11/19/2018 17:29:03 Reading Location: [address] [employer] [facility] Reading Room Performing Organization Address City/State/Zipcode Phone Number RIS * T Spot TB (11/19/2018 3:53 AM CDT) T-Spot TB Negative [facility] Neg Ctrl Spot Count 0 [facility] Panel A Spot 0 [facility] Panel B Spot 0 [facility] Pos Ctrl Spot Ct 0 [facility] Scan Result [facility] Specimen Blood Narrative Performed At Performing Organization Address City/State/Zipcode Phone Number [facility] [address] [place] [address] LABORATORIES 100 * Histoplasma antigen, urine (11/18/2018 [...] analytical performance characteristics have been determined by [facility]. It has not been cleared or approved by the U.S. Food and Drug Administration.The FDA has determined that such clearance or approval is not necessary. This assay has been validated pursuant to the CLIA regulations andis used for clinical purposes. Specimen Urine Narrative Performed At Performing Lab [facility] *[employer] [facility] [address] [place] [address] Vlad Cazares MD Performing Organization Address City/State/Zipcode Phone Number [facility], [address] [place], [place] [facility] [address] * HIV-1 Antigen with HIV-1/2 Antibody (11/18/2018 6:37 PM CDT) HIV-1 Antigen with HIV Nonreactive Nonreactive [facility] 1&2 Antibody [facility] Specimen Blood Performing Organization Address City/State/Zipcode Phone Number [facility] [address] [place] [address] [facility] * Histoplasma Ab by Complement fixation (11/18/2018 [...] analytical performance characteristics have been determined by [facility]. It has not been cleared or approved by FDA. This assay has been validated pursuant to the CLIA regulations and is used for clinical purposes. Specimen Blood Narrative Performed At Performing Lab [employer] *[employer] [facility] [address] [place] [address] Vlad Cazares MD Performing Organization Address City/State/Zipcode Phone Number [facility], [address] [place], [place] [facility] [address] * MR brain without & with IV contrast (11/18/2018 5:55 PM CDT) Specimen Narrative Performed At FINAL REPORT [facility] MR, BRAIN, WITH \\T\\ WITHOUT CONTRAST INDICATION: Neoplasm: head, DEPARTMENT CLERK, suspected Neoplasm: head, metastatic, suspected Technique: MRI [...] MD Report Verified Date/Time:11/18/2018 19:52:30 Reading Location: [facility] Reading Room Procedure Note Interface, External Ris In - 11/18/2018 7:54 PM CDT FINAL REPORT MR, BRAIN, WITH \\T\\ WITHOUT CONTRAST INDICATION: Neoplasm: head, DEPARTMENT CLERK, suspected Neoplasm: head, metastatic, suspected Technique: MRI [...] Report Verified Date/Time: 11/18/2018 19:52:30 Reading Location: [facility] Reading Room Performing Organization Address City/State/Zipcode Phone Number [facility] * EEG AWAKE AND DROWSY (11/18/2018 8:54 AM CDT) Specimen Narrative Performed At NEUROPHYSIOLOGY SECTION: EEG REPORT [facility] S tudy: Patient: Ryan Lazcano ACC: [id number] Ordering physician: Jonny Gottlieb ICD10: R56.9 CPT: 88928 Date: 11/18/18 T otal monitoring time: 30 minutes T his is a digital EEG recorded with 32 input channels on a [employer] system and then reviewed with bipolar and [...] If clinically indicated, consider additional EEG recordings. Kassi Brantley M.D., Ph.D. Epilepsy Attending Procedure Note Interface, External Ris In - 11/18/2018 11:31 AM CDT NEUROPHYSIOLOGY SECTION: EEG REPORT Study: Patient: Ryan Lazcano ACC: [id number] Ordering physician: Jonny Gottlieb ICD10: R56.9 CPT: 94743 Date: 11/18/18 Total monitoring time: 30 minutes This is a digital EEG recorded with 32 input channels on a [employer] system and then reviewed with bipolar and [...] Attending Performing Organization Address City/State/Zipcode Phone Number [facility] * CT abdomen/pelvis with IV contrast (11/17/2018 3:01 PM CDT) Specimen Narrative Performed At FINAL REPORT [facility] TECHNIQUE: CT of the chest, abdomen, and [...] MD Report Verified Date/Time:11/17/2018 17:51:15 Reading Location: [facility] C013Y CT Body Reading Room Procedure Note [...] Reading Location: [facility] B[address] C[address] Body Reading Room Performing Organization Address City/State/Zipcode Phone Number [facility] * CT chest with IV contrast (11/17/2018 3:01 PM CDT) Specimen Narrative Performed At FINAL REPORT [facility] TECHNIQUE: CT of the chest, abdomen, and [...] MD Report Verified Date/Time:11/17/2018 17:51:15 Reading Location: [facility] C013Y CT Body Reading Room Procedure Note [...] or chronic proton pump inhibitor use. Signed: Gelnn Cadet MD Report Verified Date/Time: 11/17/2018 17:51:15 Reading Location: [facility] B[address] C[address] Body Reading Room Performing Organization Address City/State/Zipcode Phone Number [facility] * Troponin I (11/17/2018 4:06 AM CDT) Troponin I <0.01 0.00 - 0.03 ng/mL [facility] Specimen Blood Narrative Performed At Troponin I (TnI) levels must be interpreted in the context of the presenting [facility] symptoms and the clinical findings. Elevated TnI levels indicate myocardial [facility] damage, but are not specific for ischemic heart disease. Elevated TnI levels are seen in patients with other cardiac conditions (including myocarditis and congestive heart failure), and slight TnI elevations occur in patients with other conditions, including sepsis, renal failure, acidosis, acute neurological disease, and persistent tachyarrhythmia. Performing Organization Address City/[facility]/Zipcode Phone Number [address] [address] MEDICAL CENTER * Hepatic function panel (11/17/2018 4:06 AM CDT) Protein, Total 7.4 6.0 - 8.3 gm/dL [facility] Albumin 4.3 3.5 - 5.0 g/dL [facility] Total Bilirubin 0.5 0.2 - 1.2 mg/dL [facility] Bilirubin, Direct 0.3 0.1 - 0.5 mg/dL [facility] Alkaline Phosphatase 82 40 - 150 U/L [facility] AST 18 5 - 34 U/L [facility] ALT 15 6 - 55 U/L [facility] Specimen Blood Performing Organization Address City/State/Zipcode Phone Number [facility] [address] [place] [address] [facility] after 12/31/2017 Insurance Payer Benefit Subscriber ID Type Phone Address Plan / Group AETNA - MGD CARE AETNA xxxxxxxxxx HMO/POS SELECT US ACCESS Advance Directives For more information, please contact: [facility] [address] [place] [address] Date Inactivated Comments Code Status Date Activated 12/21/2018 6:44 PM Full Code 12/06/2018 8:55 PM This code status was determined by: Patient 11/28/2018 8:04 PM Full Code 11/17/2018 2:40 AM This code status was determined by: Patient
[2019-01-01 01:12] LABS: BASOPHILS % 0.3 % (0.0-1.0); EOSINOPHILS % 0.2 % (0.0-6.0); HEMATOCRIT 34.2 % (38.2-49.6); HEMOGLOBIN 12.4 g/dL (14.0-18.0); LYMPHOCYTES # (AUTO) 1.5 (1.0-3.2); LYMPHOCYTES % 11.8 % (18.0-39.1); MEAN CORPUSCULAR HEMOGLOBIN 32.6 pg (28-32); MEAN CORPUSCULAR HGB CONC 36.3 g/dL (31-35); MONOCYTES # (AUTO) 0.7 (0.2-0.8); MONOCYTES % 5.3 % (4.4-11.3); NEUTROPHILS # (AUTO) 9.8 (2.1-6.9); NEUTROPHILS % 77.2 % (38.7-80.0); PLATELET COUNT 280 x10e3/uL (140-360); RED CELL DISTRIBUTION WIDTH 13.2 % (11.7-14.4)
[2019-01-01 01:27] LABS: ALANINE AMINOTRANSFERASE 32 IU/L (0-55); ALBUMIN/GLOBULIN RATIO 0.6 (0.8-2.0); ALKALINE PHOSPHATASE 96 IU/L (40-150); BLOOD UREA NITROGEN 19 mg/dL (7-26); BUN/CREATININE RATIO 35 (6-25); CALCIUM 8.4 mg/dL (8.4-10.2); CARBON DIOXIDE 24 mmol/L (22-29); CHLORIDE 91 mmol/L (98-107); CREATINE KINASE 13 IU/L (30-200); CREATININE, SERUM 0.55 mg/dL (0.72-1.25); EST GLOMERULAR FILTRATION RATE > 60 ML/MIN (60-); GLUCOSE 107 mg/dL (74-118); SODIUM 127 mmol/L (136-145)
--- NOTE | 2019-01-01 01:39 | Diagnostic Imaging Report ---
A single frontal view of the chest. HISTORY: Cough, chest pain COMPARISON: CT of the chest and chest radiograph December 07, 2018. DISCUSSION: Portable technique, limits sensitivity of the exam. Left anterior oblique rotation. The following is when allowing for the differences in projection, technique, and modalities: Tubes/Lines: Similar appearance of the right chest tube. Lungs and pleura: Similar appearance of the right pneumothorax. Similar appearance of the spiculated and cavitary right upper lung mass. Persistent diffusely increased pulmonary interstitial markings. Heart and mediastinum: The cardiomediastinal silhouette appears unchanged. Bones and soft tissues: Appear unchanged, given this limited exam. IMPRESSION: 1. Right chest tube with persistent right pneumothorax and right upper lung mass. 2. No significant interval change when allowing for differences with the comparisons. Signed by: Dr. Bk Leos D.O., M.M.M. on 01/01/2019 1:36 AM
[2019-01-01] MEDS ORDERED: POTASSIUM CHLORIDE 20MEQ/15ML UDC NG ONE (02:00)
[2019-01-01 08:05] LABS: BAND NEUTROPHILS % (MANUAL) 1 %; EOSINOPHILS % (MANUAL) 1 % (0-7); LYMPHOCYTES % (MANUAL) 7 % (19-48); MONOCYTES % (MANUAL) 5 % (3.4-9.0); NEUTROPHILS % (MANUAL) 85 % (40-74); PROMYELOCYTES % (MANUAL) 1 % (0-0)
[2019-01-01 08:06] LABS: PLATELET ESTIMATE ADEQUATE; PLATELET MORPHOLOGY COMMENT NORMAL; RBC MORPHOLOGY COMMENT NORMAL
== END 2019-01-01 02:20 | disposition home or self-care (01) ==
LOC: ER 00:29
DX: R07.89 Other chest pain (principal); E87.6 Hypokalemia; K52.9 Noninfective gastroenteritis and colitis, unspecified; E87.1 Hypo-osmolality and hyponatremia
CPT/HCPCS: 36415; 71045; 80053; 82550; 82553; 84484; 85025; 93005; 99284

== ENCOUNTER 2019-01-03 13:33 | Inpatient (IN) | payer OTHER ==
[~2019-01-03] VITALS: Ht 170.2 cm; Wt 55.3 kg
--- OUTSIDE RECORDS SUMMARY | 2019-01-03 13:37 | XMS REPORT | Clinical Summary ---
Author Author PHYLICIA [facility] Address Unknown Phone Unavailable Care Team Providers Care Flatware Maker Name Role Phone Zach Preston PCP Allergies [...] Encounters Care Team Description Date Type Specialty Bubba Coleman MD Left upper extremity swelling (Primary Dx) 01/03/2019 Orders Only Radiation Oncology Nitza Rowland, RD 01/03/2019 Documentation Radiation Oncology Jesenia Whittington MD 1, [facility] Room Primary lung cancer with metastasis from lung to other site, right (HCC) 01/01/2019 Hospital Computed Tomography Encounter Jesenia Whittington MD 1, [facility] Ct Room Primary lung cancer with metastasis from lung to other site, right (HCC) 01/01/2019 Hospital Computed Tomography Encounter Nitza Rowland, RD 12/31/2018 Documentation Radiation Oncology Jesenia Whittington MD Primary lung cancer with metastasis from lung to other site, right (HCC) (Primary Dx) 12/26/2018 Outside Orders Central Scheduling Leida Mcintosh MD BRONCHOSCOPY,INSERTION BRONCHIAL VALVE 12/17/2018 Surgery Denise Shirley, MURTAZA 12/17/2018 Anesthesia Event Jorge King MD Arrived 12/16/2018 Procedure visit Radiation Oncology AnamikaHussain meehan MD Ancy, Kayley Marie Clemings, MD Pathak, Yashash D Arif, Sahar, MD Brain metastases (HCC) (Primary Dx); Primary adenocarcinoma of right lung (HCC); Secondary spontaneous pneumothorax; Spontaneous pneumothorax; Chronic obstructive pulmonary disease, unspecified COPD type (HCC) 12/06/2018 [facility] Cardiology - Encounter 12/21/2018 12/06/2018 Travel Hussain Willson MD Shortness of Breath 12/06/2018 Telephone Internal Medicine Jorge King MD Arrived 12/04/2018 Procedure visit Radiation Oncology Jorge King MD 12/02/2018 Procedure visit Radiation Oncology Fiordaliza Kemp CRNA 11/26/2018 Anesthesia Event Leida Mcintosh MD BRONCHOSCOPY,TRANSBRONCHIAL NEEDLE ASPIRATION BIOPSY 11/26/2018 Surgery Sunday Paris CRNA 11/22/2018 Anesthesia Event Leida Mcintosh MD BRONCHOSCOPY,ENDOBRONCHIAL ULTRASOUND (EBUS) TRANSTRACH/ TRANSBRONCH SAMPLING 11/22/2018 Surgery Trung Duvall, [employer] 11/18/2018 Anesthesia Event Virtual, Surgeon PROCEDURE DONE OUTSIDE OR 11/18/2018 Surgery Jonny Gottlieb MD Bhattarai, Alok, MD Tirukkovalluri, Srilakshmi, MD Adio, Titilola R., MD Brain mass; Cerebral edema (HCC); Encephalopathy; Lung mass; Centrilobular emphysema (HCC); Smoker; Non-small cell lung cancer with metastasis (HCC); Non-small cell lung cancer, unspecified laterality (HCC); Goals of care, counseling/discussion 11/17/2018 [facility] General Internal Medicine - Encounter 11/28/2018 11/17/2018 Travel after 01/02/2018 Social History Date Tobacco Use Types Packs/Day [...] Treatment Care Team Description Date Type Specialty Coleman, Bubba Lucia MD 01/09/2019 Appointment Radiology [place], Jorge Block MD [facility] [place], [place] [id number] 01/16/2019 Procedure visit Radiation Oncology Implants Device Identifier Shelf Expiration Date Model / Serial / Lot Implanted Type Area Manufactur er 03/17/2021 REF-HUS-V6 / / [id number] Valve Sys Ibv 6mm [facility] Ref-Hus-V6 - IMPLANTS N/A: Trachea SPIRATION [id number] Implanted: Qty: 1 on 12/17/2018 by Leida Mcintosh MD 11/15/2020 REF-HUS-V7 / / [id number] Valve Sys Ibv 7mm [facility] Ref-Hus-V7 - IMPLANTS N/A: Trachea SPIRATION [id number] Implanted: Qty: 1 on 12/17/2018 by Leida Mcintosh MD Procedures Comments Procedure Name Priority Date/Time Associated Diagnosis CT ABDOMEN WITH IV Routine 01/01/2019 Primary lung cancer with CONTRAST 12:23 PM CDT metastasis from lung to other site, right (HCC) CT CHEST WITH IV CONTRAST Routine 01/01/2019 Primary lung cancer with 12:23 PM CDT metastasis from lung to other site, right (HCC) POCT-CREATININE Routine 01/01/2019 11:57 AM CDT XR CHEST 1 VIEW Routine 12/21/2018 PORTABLE/BEDSIDE [...] Routine 11/26/2018 CLINICIAN 12:28 PM CDT FL PUMPMAN IN OR 30 Routine 11/26/2018 MINUTE INCREMENTS [...] 9:[address] CHEST WITHOUT IV BARNT 11/22/2018 CONTRAST 6:03 PM CDT SPIN/CONCENTRATION CHARGE [...] I Routine 11/17/2018 4:06 AM CDT after 01/02/2018 Results * CT Abdomen with IV Contrast (01/01/2019 12:23 PM CDT) Specimen Narrative Performed At FINAL REPORT [facility] Navigation CT of the chest and abdomen, 01/01/2019. History: Lung cancer. Comparison: 11/22/2018. Technique: Multidetector CT scanning of the chest and abdomen was performed from the level of the apices to the iliac crests, with intravenous administration of non-ionic contrast and without oral contrast. Scanning during early and delayed phases was performed. This exam was performed according to our departmental dose-optimization program which includes automated exposure control, adjustment of the mA and/or kV according to patient size and/or use of iterative reconstruction technique. Discussion: Chest: The atria, ventricles, aorta, and pulmonary vessels are normal in size. Calcified coronary arteries are present. The thyroid is unremarkable. There is no evidence of axillary or mediastinal adenopathy. A 5 x 3.1 cm right upper lobe mass is again seen is increased cavitation which communicates laterally with the pleural space. A small hydropneumothorax is present. A large caliber chest tube is present terminating at the apex. 5 mm pleural-based nodule more inferiorly in the right upper lobe is unchanged. Moderate bilateral upper lobe emphysema is present. Patchy atelectasis is scattered throughout both lungs. Abdomen: A 2.4 x 2.6 cm peripherally enhancing left adrenal mass is present. The liver, gallbladder, biliary tree, spleen, pancreas, right adrenal gland, and kidneys are normal. The hepatic vein, portal vein, and splenic vein are patent. The celiac artery, SMA, and ELENA are patent. The renal arteries are patent.The abdominal aorta is within normal limits. Evaluation of bowel is limited without oral contrast. There is no bowel dilatation.There is no evidence of adenopathy or free fluid. Bones: Degenerative changes are present throughout the lumbar spine without evidence of lytic or sclerotic lesion. IMPRESSION: 1. Right upper lobe cavitary mass is present with lateral communication to the pleural space. Small right hydropneumothorax remains despite the presence of a large caliber chest tube. Scattered bilateral atelectasis and pulmonary emphysema are noted. 2. Left adrenal mass consistent with metastatic disease. Signed: Antonio Montemayor MD Report Verified Date/Time:01/01/2019 17:57:02 Reading Location: [facility] C013W Consult Reading Room Procedure Note Interface, External Ris In - 01/01/2019 5:59 PM CDT FINAL REPORT CT of the chest and abdomen, 01/01/2019. History: Lung cancer. Comparison: 11/22/2018. Technique: Multidetector CT scanning of the chest and abdomen was performed from the level of the apices to the iliac crests, with intravenous administration of non-ionic contrast and without oral contrast. Scanning during early and delayed phases was performed. This exam was performed according to our departmental dose-optimization program which includes automated exposure control, adjustment of the mA and/or kV according to patient size and/or use of iterative reconstruction technique. Discussion: Chest: The atria, ventricles, aorta, and pulmonary vessels are normal in size. Calcified coronary arteries are present. The thyroid is unremarkable. There is no evidence of axillary or mediastinal adenopathy. A 5 x 3.1 cm right upper lobe mass is again seen is increased cavitation which communicates laterally with the pleural space. A small hydropneumothorax is present. A large caliber chest tube is present terminating at the apex. 5 mm pleural-based nodule more inferiorly in the right upper lobe is unchanged. Moderate bilateral upper lobe emphysema is present. Patchy atelectasis is scattered throughout both lungs. Abdomen: A 2.4 x 2.6 cm peripherally enhancing left adrenal mass is present. The liver, gallbladder, biliary tree, spleen, pancreas, right adrenal gland, and kidneys are normal. The hepatic vein, portal vein, and splenic vein are patent. The celiac artery, SMA, and ELENA are patent. The renal arteries are patent. The abdominal aorta is within normal limits. Evaluation of bowel is limited without oral contrast. There is no bowel dilatation. There is no evidence of adenopathy or free fluid. Bones: Degenerative changes are present throughout the lumbar spine without evidence of lytic or sclerotic lesion. IMPRESSION: 1. Right upper lobe cavitary mass is present with lateral communication to the pleural space. Small right hydropneumothorax remains despite the presence of a large caliber chest tube. Scattered bilateral atelectasis and pulmonary emphysema are noted. 2. Left adrenal mass consistent with metastatic disease. Signed: Antonio Montemayor MD Report Verified Date/Time: 01/01/2019 17:57:02 Reading Location: [facility] C013W Consult Reading Room Performing Organization Address City/State/Zipcode Phone Number [facility] * CT Chest with IV Contrast (01/01/2019 12:23 PM CDT) Only the most recent of 2 results within the time period is included. Specimen Narrative Performed At FINAL REPORT [facility] Navigation CT of the chest and abdomen, 01/01/2019. History: Lung cancer. Comparison: 11/22/2018. Technique: Multidetector CT scanning of the chest and abdomen was performed from the level of the apices to the iliac crests, with intravenous administration of non-ionic contrast and without oral contrast. Scanning during early and delayed phases was performed. This exam was performed according to our departmental dose-optimization program which includes automated exposure control, adjustment of the mA and/or kV according to patient size and/or use of iterative reconstruction technique. Discussion: Chest: The atria, ventricles, aorta, and pulmonary vessels are normal in size. Calcified coronary arteries are present. The thyroid is unremarkable. There is no evidence of axillary or mediastinal adenopathy. A 5 x 3.1 cm right upper lobe mass is again seen is increased cavitation which communicates laterally with the pleural space. A small hydropneumothorax is present. A large caliber chest tube is present terminating at the apex. 5 mm pleural-based nodule more inferiorly in the right upper lobe is unchanged. Moderate bilateral upper lobe emphysema is present. Patchy atelectasis is scattered throughout both lungs. Abdomen: A 2.4 x 2.6 cm peripherally enhancing left adrenal mass is present. The liver, gallbladder, biliary tree, spleen, pancreas, right adrenal gland, and kidneys are normal. The hepatic vein, portal vein, and splenic vein are patent. The celiac artery, SMA, and ELENA are patent. The renal arteries are patent.The abdominal aorta is within normal limits. Evaluation of bowel is limited without oral contrast. There is no bowel dilatation.There is no evidence of adenopathy or free fluid. Bones: Degenerative changes are present throughout the lumbar spine without evidence of lytic or sclerotic lesion. IMPRESSION: 1. Right upper lobe cavitary mass is present with lateral communication to the pleural space. Small right hydropneumothorax remains despite the presence of a large caliber chest tube. Scattered bilateral atelectasis and pulmonary emphysema are noted. 2. Left adrenal mass consistent with metastatic disease. Signed: Antonio Montemayor MD Report Verified Date/Time:01/01/2019 17:57:02 Reading Location: [address] Consult Reading Room Procedure Note Interface, External Ris In - 01/01/2019 5:59 PM CDT FINAL REPORT CT of the chest and abdomen, 01/01/2019. History: Lung cancer. Comparison: 11/22/2018. Technique: Multidetector CT scanning of the chest and abdomen was performed from the level of the apices to the iliac crests, with intravenous administration of non-ionic contrast and without oral contrast. Scanning during early and delayed phases was performed. This exam was performed according to our departmental dose-optimization program which includes automated exposure control, adjustment of the mA and/or kV according to patient size and/or use of iterative reconstruction technique. Discussion: Chest: The atria, ventricles, aorta, and pulmonary vessels are normal in size. Calcified coronary arteries are present. The thyroid is unremarkable. There is no evidence of axillary or mediastinal adenopathy. A 5 x 3.1 cm right upper lobe mass is again seen is increased cavitation which communicates laterally with the pleural space. A small hydropneumothorax is present. A large caliber chest tube is present terminating at the apex. 5 mm pleural-based nodule more inferiorly in the right upper lobe is unchanged. Moderate bilateral upper lobe emphysema is present. Patchy atelectasis is scattered throughout both lungs. Abdomen: A 2.4 x 2.6 cm peripherally enhancing left adrenal mass is present. The liver, gallbladder, biliary tree, spleen, pancreas, right adrenal gland, and kidneys are normal. The hepatic vein, portal vein, and splenic vein are patent. The celiac artery, SMA, and ELENA are patent. The renal arteries are patent. The abdominal aorta is within normal limits. Evaluation of bowel is limited without oral contrast. There is no bowel dilatation. There is no evidence of adenopathy or free fluid. Bones: Degenerative changes are present throughout the lumbar spine without evidence of lytic or sclerotic lesion. IMPRESSION: 1. Right upper lobe cavitary mass is present with lateral communication to the pleural space. Small right hydropneumothorax remains despite the presence of a large caliber chest tube. Scattered bilateral atelectasis and pulmonary emphysema are noted. 2. Left adrenal mass consistent with metastatic disease. Signed: Antonio Montemayor MD Report Verified Date/Time: 01/01/2019 17:57:02 Reading Location: [facility] B1 C013W Consult Reading Room Performing Organization Address City/State/Zipcode Phone Number [facility] * POC-Creatinine (01/01/2019 11:57 AM CDT) POC-Creatinine 0.2 (L)Comment: TESTED AT 0.6 - 1.3 mg/dL [facility] [address] [address] POC-EGFR 490 mL/min/1.73M2 [facility] Specimen Blood Performing Organization Address City/[facility]/Zipcode Phone Number [facility] [address] [phone] [facility] * XR chest 1 view portable / bedside (12/21/2018 5:23 AM CDT) Only the most recent of 23 results within the time period is included. Specimen Narrative Performed At FINAL REPORT [facility] TECHNIQUE: Frontal view of the chest. INDICATION: [...] MD Report Verified Date/Time:12/21/2018 07:48:59 Reading Location: [facility] B1 C013Y CT Body Reading Room Procedure [...] Report Verified Date/Time: 12/21/2018 07:48:59 Reading Location: [facility] B[address] C[address] Body Reading Room Performing Organization Address City/State/Zipcode Phone Number GE RIS * CBC with platelet count + automated diff (12/20/2018 5:49 AM CDT) Only the most recent of 17 results within the time period is included. WBC 12.7 (H) 3.5 - 10.5 K/L [facility] RBC 3.56 (L) 4.63 - 6.08 M/L [facility] Hemoglobin 11.5 (L) 13.7 - 17.5 GM/DL [facility] Hematocrit 34.1 (L) 40.1 - 51.0 % [facility] MCV 95.8 (H) 79.0 - 92.2 fL [facility] MCH 32.3 (H) 25.7 - 32.2 pg [facility] MCHC 33.7 32.3 - 36.5 GM/DL [facility] RDW 13.1 11.6 - 14.4 % [facility] Platelets 222 150 - 450 K/CU MM [facility] MPV 9.5 9.4 - 12.4 fL [facility] nRBC 0 0 - 0 /100 WBC [facility] % Neutros 87 % [facility] % Lymphs 8 % [facility] % Monos 3 % [facility] % Eos 0 % [facility] % Baso 0 % [facility] # Neutros 10.96 (H) 1.78 - 5.38 K/L [facility] # Lymphs 0.97 (L) 1.32 - 3.57 K/L [facility] # Monos 0.32 0.30 - 0.82 K/L [facility] # Eos 0.02 (L) 0.04 - 0.54 K/L [facility] # Baso 0.02 0.01 - 0.08 K/L [facility] Immature 3 (H) 0 - 1 % [facility] Granulocytes-[facility] Specimen Blood Performing Organization Address City/State/Zipcode Phone Number [facility] [address] [place] [address] MEDICAL CENTER * Basic Metabolic Panel (12/20/2018 5:49 AM CDT) Only the most recent of 20 results within the time period is included. Sodium 131 (L) 136 - 145 meq/L [facility] Potassium 3.9 3.5 - 5.1 meq/L [facility] Chloride 99 98 - 107 meq/L [facility] CO2 24 22 - 29 meq/L [facility] BUN 18 7 - 21 mg/dL [facility] Creatinine 0.47 (L) 0.57 - 1.25 mg/dL [facility] Glucose 119 (H) 70 - 105 mg/dL [facility] Calcium 7.9 (L) 8.4 - 10.2 mg/dL [facility] EGFR Comment: INSUFFICIENT CLINICAL mL/min/1.73 sq m [facility] DATA TO CALCULATE ESTIMATED [facility] GFR. Specimen Blood Performing Organization Address City/[facility] [place] [address] [phone] * TRANSFUSION SERVICE REPORT - SCAN (12/18/2018 [...] is included. ABO/RH AUTOMATED (BEAKER) O POSITIVE [facility] Ab Scrn NEGATIVE [facility] Specimen Blood Performing Organization Address City/[facility] Mex[facility] Phone Number [address] [address] [facility] * aPTT (12/17/2018 6:08 AM CDT) Only the most recent of 2 results within the time period is included. PTT 30.8 22.5 - 36.0 seconds [facility] Specimen Blood Performing Organization Address City/[facility] Phone Number [phone] [place] [address] * Prothrombin time/INR (12/17/2018 6:08 AM CDT) Only the most recent of 2 results within the time period is included. Protime 13.6 11.9 - 14.2 seconds [facility] INR 1.1 <=5.9 [facility] Specimen Blood Narrative Performed At Effective 11/13/2018: PT Reference Range Change [facility] New: 11.9-14.2Previous: 11.7-14.7 [facility] RECOMMENDED COUMADIN/WARFARIN INR THERAPY RANGES STANDARD DOSE: 2.0-3.0Includes: PROPHYLAXIS for venous thrombosis, systemic embolization; TREATMENT for venous thrombosis and/or pulmonary embolus. HIGH RISK: Target INR is 2.5-3.5 for patients wiht mechanical heart valves. Performing Organization Address City/[facility] Mex[facility]ode Phone Number [address] * Osmolality, serum (12/17/2018 6:08 AM CDT) Osmolality Serum 280 275 - 295 mOsm/kg [facility] Specimen Blood Performing Organization Address [facility] Phone Number [address] * Sodium, random urine (12/16/2018 10:11 PM CDT) Sodium Urine 89 meq/L [facility] Specimen Urine Narrative Performed At Reference Range: No Normals [facility] Performing Organization Address City/[facility] Phone Number [address] * Osmolality, urine (12/16/2018 10:11 PM CDT) Osmolality, Ur 1,063 40-1,400 mOsm/kg [facility] Specimen Urine Performing Organization Address City/[facility] Phone Number [place] [phone] * CBC (Hemogram only) (12/09/2018 4:08 AM CDT) Only the most recent of 3 results within the time period is included. WBC 12.8 (H) 3.5 - 10.5 K/L [facility] RBC 3.75 (L) 4.63 - 6.08 M/L [facility] Hemoglobin 12.3 (L) 13.7 - 17.5 GM/DL [facility] Hematocrit 36.4 (L) 40.1 - 51.0 % [facility] MCV 97.1 (H) 79.0 - 92.2 fL [facility] MCH 32.8 (H) 25.7 - 32.2 pg [facility] MCHC 33.8 32.3 - 36.5 GM/DL [facility] RDW 13.3 11.6 - 14.4 % [facility] Platelets 218 150 - 450 K/CU MM [facility] MPV 9.8 9.4 - 12.4 fL [facility] nRBC 0 0 - 0 /100 WBC [facility] Specimen Blood Performing Organization Address City/[facility]/Zipcode Phone Number [facility] [address] [place] [address] [phone] * Magnesium (12/09/2018 4:08 AM CDT) Only the most recent of 6 results within the time period is included. Magnesium 2.0Comment: Specimen slightly 1.6 - 2.6 mg/dL [facility] hemolyzed [facility] Specimen Blood Performing Organization Address City/[facility]/Zipcode Phone Number [facility] [address] [place] [address] [phone] [place] [address] * Procalcitonin (12/07/2018 4:20 AM CDT) Procalcitonin <0.05 <0.05 ng/mL [facility] Specimen Blood Narrative Performed At SEPSIS RISK (ng/mL) [facility] Low:0.05-0.50 [facility] Intermediate: 0.51-2.00 High: >=2.01 Performing Organization Address City/[facility] [place] [address] [facility] * PT/aPTT (12/07/2018 4:20 AM CDT) Only the most recent of 2 results within the time period is included. Protime 14.6 (H) 11.9 - 14.2 seconds [facility] INR 1.2 <=5.9 [facility] PTT 32.2 22.5 - 36.0 seconds [facility] Specimen Blood Narrative Performed At Effective 11/13/2018: PT Reference Range Change [facility] New: 11.9-14.2Previous: 11.7-14.7 [facility] RECOMMENDED COUMADIN/WARFARIN INR THERAPY RANGES STANDARD DOSE: 2.0-3.0Includes: PROPHYLAXIS for venous thrombosis, systemic embolization; TREATMENT for venous thrombosis and/or pulmonary embolus. HIGH RISK: Target INR is 2.5-3.5 for patients wiht mechanical heart valves. Performing Organization Address [facility] [place] [address] [facility] * RHYTHM STRIP - SCAN (11/29/2018 11:11 AM CDT) Narrative Performed At * POC-Glucose meter (11/28/2018 1:18 PM CDT) Only the most recent of 41 results within the time period is included. POC-Glucose Meter 105Comment: [facility] 110 mg/dL [address] Specimen Blood Performing Organization Address City/[facility] Mex[facility]ode Phone Number [address] [address] [facility] * Coccidioides antibodies (11/28/2018 5:45 AM [...] Specimen Blood Narrative Performed At Performing Lab [facility] *[employer], [employer] [id number] [place] [phone] Vlad Cazares MD Performing Organization Address [facility] Phone Number [employer], [address] [place] [address] [phone] [email or web address] [phone] * Blastomyces antibody (11/26/2018 2:21 PM CDT) Blastomyces Ab,Id NEGATIVE [facility] Comment: INCORPORATED REFERENCE RANGE: NEGATIVE INTERPRETIVE CRITERIA: NEGATIVE: Antibody Not Detected POSITIVE: Antibody Detected A positive result is diagnostic of active or recent blastomycosis and is found in approximately 80% of proven cases of blastomycosis. Specimen Blood Narrative Performed At Performing Status4 DIAGNOSTIC *[facility] [employer] [address] [place] [address] Vlad Cazares MD Performing Organization Address City/[facility] Mexicocode Phone Number [employer], [address] [facility] [employer] ([email or web address])[facility] [address] * Aspergillus galactomannan antigen (11/26/2018 2:21 PM CDT) Aspergillus Index Value <0.50 [facility] Aspergillus Antigen NOT DETECTED [facility] Comment: INCORPORATED REFERENCE RANGE: <0.50, NOT DETECTED A negative result does not exclude invasive aspergillosis. Follow-up testing may be indicated for high-risk patients. Specimen Blood Narrative Performed At Performing Lab [facility] *[facility] [employer] [facility] [address] [place] [address] Vlad Cazares MD Performing Organization Address City/State/Zipcode Phone Number [facility] Dusty Ye, [address] [place], [place] INCORPORATED [facility] [address] * REPORT OF PROCEDURE - ENDOSCOPY URL (11/26/2018 12:37 PM CDT) Narrative Performed At * CYTOLOGY REQUEST (11/26/2018 12:29 PM CDT) Only the most recent of 2 results within the time period is included. Cytology See Separate Report [facility] Specimen BAL Performing Organization Address City/State/Zipcode Phone Number [facility] [address] [place] [address] [facility] * Cytology (11/26/2018 12:29 PM CDT) Only the most recent of 2 results within the time period is included. Case Report Medical Cytology [facility] Report [facility] Case: [id number] Authorizing Provider:Leida Mcintosh MDCollected: 11/26/2018 1229 Ordering Location: [facility] PERIOPERATIVE Received: 11/26/2018 1305 SERVICES Pathologist: Ubaldo Ortiz MD Specimen:Lung, Right Upper Lobe, BAL DIAGNOSIS LUNG, RIGHT UPPER LOBE, BAL [facility] (CYTOSPINS): [facility] - NON SMALL CELL CARCINOMA, POORLY DIFFERENTIATED, WITH DEGENERATIVE FEATURES Signing Pathologist Direct Phone Line: [phone] COMMENT Please also see surgical [facility] pathology report [id number] [facility] cytopathology report [id number]. CPT Code(s) 60749 [facility] CLINICAL DATA Lung mass [facility] SPECIMEN SOURCE LUNG, RIGHT UPPER LOBE BAL [facility] GROSS DESCRIPTION Prepared 4 cytospins from 15 [facility] ml blood-tinged fluid [facility] Collected: [id number] Received: [id number] MICROSCOPIC DESCRIPTION Few degenerating atypical [facility] cells consistent with [facility] non-small cell carcinoma are present. Benign bronchial epithelial cells and macrophages are present in background. STATEMENT OF ADEQUACY Satisfactory [facility] Gross assessment was [facility] performed at [place], Department of [facility] Pathology, [address] [place] [address], Technical component was [facility] performed at [place], Department of [facility] Pathology, [address] [place] [address], Professional component [facility] was performed at [place], Department of [facility] Pathology, [address] [place] [address], Specimen BAL Narrative Performed At Performing Organization Address City/[facility] Mexicocode Phone Number [address] [address] [facility] * Surgically obtained culture + gram stain (11/26/2018 12:28 PM CDT) Only the most recent of 2 results within the time period is included. Result <1+ Viridans Streptococcus (A) [facility] Gram Stain Result No WBCs [facility] Gram Stain Result No organisms seen [facility] Specimen Fine Needle Aspirate Performing Organization Address City/[facility] Mexicocode Phone Number [address] [address] [facility] * Fungus culture + smear (11/26/2018 12:28 PM CDT) Only the most recent of 3 results within the time period is included. Result No fungus isolated in 28 days [facility] Fungus Smear No fungi seen [facility] Specimen Fine Needle Aspirate Performing Organization Address City/[facility]/Zipcode Phone Number [address] [address] [facility] * FINE NEEDLE ASPIRATE (FNA) REQUEST (11/26/2018 12:28 PM CDT) Cytology See Separate Report [facility] Specimen Fine Needle Aspirate Performing Organization Address City/[facility]/Zipcode Phone Number [facility] [address] [place] [address] [facility] * FL trade marker in or 30 minute increments (11/26/2018 12:28 PM CDT) Specimen Narrative Performed At FLUOROSCOPIC UNIT UTILIZED-NO INTERPRETATION REQUESTED. GE [facility] Procedure Note Interface, External Ris In - 12/02/2018 5:13 PM CDT FLUOROSCOPIC UNIT UTILIZED-NO INTERPRETATION REQUESTED. Performing Organization Address [facility] Mexicocode Phone Number [facility] * Fine Needle Aspirate by Clinician (11/26/2018 12:28 PM CDT) Case Report Medical Cytology [facility] Report [facility] Case: [id number] Authorizing Provider:Leida Mcintosh MDCollected: 11/26/2018 1228 Ordering Location: [facility] PERIOPERATIVE Received: 11/26/2018 1305 SERVICES Pathologist: Ubaldo Ortiz MD Specimen:Lung, Right Upper Lobe DIAGNOSIS LUNG, RIGHT UPPER LOBE, FNA BY [facility] CLINICIAN (CYTOSPINS AND CELL [facility] BLOCK OF ASPIRATE): - NON SMALL CELL CARCINOMA, POORLY DIFFERENTIATED Signing Pathologist Direct Phone Line: [phone] COMMENT Please also see surgical [facility] pathology report [id number] [facility] cytopathology report [id number]. CPT Code(s) 75219, 11158 [facility] CLINICAL DATA Lung mass [facility] SPECIMEN SOURCE LUNG, RIGHT UPPER LOBE FNA [facility] GROSS DESCRIPTION Prepared cell block(A2) and 2 [facility] cytospins from [address] [facility] red fixative sample Collected: [id number] Received: [id number] SPECIAL STUDIES The interpretation of this [facility] case included the use of [facility] immunohistochemistry or special stains. Control Slides Examined: In-house known positive controls were evaluated along with the test tissue. These control slides run alongside of the patients sample show appropriate staining. Internal positive and negative controls when available are evaluated Immunohistochemistry technical testing was performed at [facility], Pathology Laboratory where it was [...] complexity clinical laboratory testing. Gross assessment was [facility] performed at [place], Department [facility] Pathology, [address] [place] [address], Technical component was [facility] performed at [place], Department of [facility] Pathology, [address] [place] [address], Professional component [facility] was performed at [place], Department of [facility] Pathology, [address] [place] [address], Specimen Fine Needle Aspirate Narrative Performed At Performing Organization Address City/State/Zipcode Phone Number [address] [address] [facility] * Tissue Exam (11/26/2018 12:27 PM CDT) Case Report Surgical Pathology [facility] Report [facility] Case: [id number] Authorizing Provider:Leida Mcintosh MDCollected: 11/26/2018 1227 Ordering Location: [facility] PERIOPER[facility]IVE Received: 11/26/2018 1307 SERVICES Pathologist: Nasra Plummer MD Specimen:Lung, Right Upper Lobe, TBBX, process in cytology for colloidion bag, reflex genetic markers ADDENDUM 2 This addendum is issued to [facility] report results of pending [facility] biomarker study performed at [facility]. RESULT: - NTRK1, NTRK2, NTRK3 ALTERATIONS: NOT DETECTED Please see scanned report for further information. ADDENDUM This addendum is being issued [facility] to report the results of [facility] biomarker testing performed at [employer]. RESULT: - EGFR mutation: NOT DETECTED - BRAF mutation: NOT DETECTED - FISH analysis for ALK gene rearrangement is NEGATIVE - FISH analysis for ROS1 gene rearrangement is NEGATIVE - Immunostain for PDL-1 (22C3 clone) is HIGH (90%, 3+) Please refer to attached scanned report for further results. DIAGNOSIS A. LUNG, RIGHT UPPER LOBE, [facility] TRANSBRONCHIAL BIOPSY: [facility] - ADENOCARCINOMA, CONSISTENT WITH PULMONARY PRIMARY (SEE COMMENT) Signing Pathologist Direct Phone Line: [phone] COMMENT A. Immunostain for TTF1 is [facility] positive and p40 is negative, [facility] supporting the above diagnosis. CPT Code(s) 23279 [facility] [address] [facility] [address] CLINICAL HISTORY Lung mass [facility] SPECIMEN SOURCE A. Right upper lobe lung [facility] transbronchial biopsy [facility] GROSS DESCRIPTION Specimen A: The specimen is [facility] received in a formalin-filled [facility] container and labeled with the patient's [...] in a collodion bag. MICROSCOPIC DESCRIPTION Performed. [facility] SPECIAL STUDIES The interpretation of this [facility] case included the use of [facility] immunohistochemistry or special stains. Control Slides Examined: In-house known positive controls were evaluated along with the test tissue. These control slides run alongside of the patients sample show appropriate staining. Internal positive and negative controls when available are evaluated Immunohistochemistry technical testing was performed at [facility], Pathology Laboratory where it was [...] complexity clinical laboratory testing. Gross assessment was [facility] performed at [place], [facility] Pathology, [address] [place] [address], Technical component was [facility] performed at [place], [facility] Pathology, [address] [place] [address], Professional component [facility] was performed at [facility] Pathology, [address] [place] [address], Specimen Tissue Narrative Performed At Performing Organization Address City/[facility]/Zipcode Phone Number [address] [address] [employer] * [employer], Baterial, Fungi pcr (11/26/2018 8:30 AM CDT) Scan Result [facility] Specimen Tissue Narrative Performed At Performing Organization Address City/State/Zipcode Phone Number [facility] [address] [place], [place] * roe GARCIA (11/26/2018 5:59 AM CDT) ABO Grouping O [facility] Rh Factor POS [facility] Specimen Blood Performing Organization Address City/State/Zipcode Phone Number [facility] [address] [place] [address] [facility] * Comprehensive metabolic panel (11/26/2018 5:13 AM CDT) Protein, Total 5.6 (L) 6.0 - 8.3 gm/dL [facility] Albumin 3.3 (L) 3.5 - 5.0 g/dL [facility] Alkaline Phosphatase 55 40 - 150 U/L [facility] Total Bilirubin 0.6 0.2 - 1.2 mg/dL [facility] Sodium 134 (L) 136 - 145 meq/L [facility] Potassium 3.9 3.5 - 5.1 meq/L [facility] Chloride 104 98 - 107 meq/L [facility] CO2 25 22 - 29 meq/L [facility] BUN 24 (H) 7 - 21 mg/dL [facility] Creatinine 0.64 0.57 - 1.25 mg/dL [facility] Glucose 111 (H) 70 - 105 mg/dL [facility] Calcium 8.2 (L) 8.4 - 10.2 mg/dL [facility] AST 11 5 - 34 U/L [facility] ALT 21 6 - 55 U/L [facility] EGFR Comment: INSUFFICIENT CLINICAL mL/min/1.73 sq m [facility] DATA TO CALCULATE ESTIMATED [facility] GFR. Specimen Blood Performing Organization Address City/State/Zipcode Phone Number [facility] [address] [place] [address] [facility] * CT chest without IV contrast (11/22/2018 6:03 PM CDT) Specimen Narrative Performed At FINAL REPORT GE RIS CT of the Chest dated 11/22/2018 COMPARISON: [...] MD Report Verified Date/Time:11/22/2018 19:04:17 Reading Location: [facility] C013Y CT Body Reading Room Procedure Note [...] Reading Location: [facility] B1 C013Y CT Body Reading Room Performing Organization Address City/State/Zipcode Phone Number [facility] * SPIN/CONCENTRATION CHARGE (11/22/2018 12:58 PM CDT) Only the most recent of 3 results within the time period is included. Concentration charged Done [facility] Specimen Sputum - Expectorated Performing Organization Address [facility] Mexicocode Phone Number [address] * REPORT OF PROCEDURE - ENDOSCOPY URL (11/22/2018 12:53 PM CDT) Narrative Performed At * EBUS FNA REQUEST (11/22/2018 8:20 AM CDT) Only the most recent of 2 results within the time period is included. Cytology See Separate Report [facility] Specimen EBUS Fine Needle Aspirate - Lymph Node, Interlobar, Right, Station 11R Performing Organization Address [facility] Mex[facility]ocosc Phone Number [address] * Fine Needle Aspiration by EBUS (11/22/2018 8:20 AM CDT) Only the most recent of 2 results within the time period is included. Case Report Medical Cytology [facility] Case: [id number] Authorizing Provider:Leida Mcintosh MDCollected: 11/22/2018 08 Ordering Location: [address] Received: 11/22/2018 0854 Service Pathologist: Ubaldo Ortiz MD Specimen:Lymph Node, Interlobar, Right, Station 11R DIAGNOSIS LYMPH NODE, INTERLOBAR RIGHT, [facility] STATION 11R EBUS FNA BY [facility] CLINICIAN (CYTOSPINS AND CELL BLOCK OF ASPIRATE): - LYMPHOCYTES PRESENT - NO MALIGNANT CELLS IDENTIFIED Signing Pathologist Direct Phone Line: [phone] COMMENT Please see cytopathology cases [facility] [id number] [facility] CPT Code(s) 16945, 23910 [facility] CLINICAL DATA Lung Mass, mediastinal [facility] lymphadenopathy, adrenal and [facility] brain masses. Presumed lung cancer with mets. SPECIMEN SOURCE LYMPH NODE, INTERLOBAR RIGHT, [facility] STATION 11R EBUS FNA [facility] GROSS DESCRIPTION 35 mls in cytorich red; 2 [facility] cytospins, cell block [facility] (collodion bag) Collected: [id number] Received: [id number] SPECIAL STUDIES The interpretation of this [facility] case included the use of [facility] immunohistochemistry or special stains. Control Slides Examined: In-house known positive controls were evaluated along with the test tissue. These control slides run alongside of the patients sample show appropriate staining. Internal positive and negative controls when available are evaluated Immunohistochemistry technical testing was performed at [facility], Pathology Laboratory where it was [...] complexity clinical laboratory testing. Gross assessment was [facility] performed at [place], [facility] Pathology, [address] [place] [address], Technical component was [facility] performed at [place], [facility] Pathology, [address] [place] [address], Professional component [facility] was performed at [place], [facility] Pathology, [address] [place] [address], Specimen EBUS Fine Needle Aspirate - Lymph Node, Interlobar, Right, Station 11R Narrative Performed At Performing Organization Address City/State/Zipcode Phone Number [facility] [address] [place], [place] [phone] [facility] * Bronchial culture + gram stain (11/22/2018 8:04 AM CDT) Result 3+ Normal respiratory selam [facility] Gram Stain Result <1+ WBCs [facility] Gram Stain Result No organisms seen [facility] Specimen BAL Performing Organization Address City/State/Zipcode Phone Number [facility] [address] [place] [address] [facility] * Phosphorus (11/20/2018 4:55 AM CDT) Only the most recent of 3 results within the time period is included. Phosphorus 3.3 2.3 - 4.7 mg/dL [facility] Specimen Blood Narrative Performed At Check Serum Phosphorus level 4 hours after IV phosphorus replacement or 8 hours [facility] after PO replacement completed. [facility] Performing Organization Address City/[facility] Mexicocode Phone Number [place] [phone] [place] [address] [facility] * NM bone scan whole body (11/19/2018 4:43 PM CDT) Specimen Narrative Performed At FINAL REPORT SPIR[facility] Navigation PROCEDURE: BONE SCAN, WHOLE BODY CPT CODE:23732 INDICATION:Lung mass,neoplasm within the head, chest, and [...] MD Report Verified Date/Time:11/19/2018 17:29:03 Reading Location: [address] [employer] [facility] Reading Room Procedure Note Interface, External Ris In - 11/19/2018 5:31 PM CDT FINAL REPORT PROCEDURE: BONE SCAN, WHOLE BODY CPT CODE: 59075 INDICATION: Lung mass, neoplasm within the head, [...] Report Verified Date/Time: 11/19/2018 17:29:03 Reading Location: [address] [employer] [facility] Reading Room Performing Organization Address City/State/Zipcode Phone [...] At Performing Organization Address City/State/Zipcode Phone Number [facility] [address] * Histoplasma antigen, urine (11/18/2018 10:30 [...] analytical performance characteristics have been determined by [facility]. It has not been cleared or approved by the U.S. Food and Drug Administration.The FDA has determined that such clearance or approval is not necessary. This assay has been validated pursuant to the CLIA regulations andis used for clinical purposes. Specimen Urine Narrative Performed At Performing Lab [facility] *[employer] [facility] [address] [place] [address] Vlad Cazares MD Performing Organization Address City/[facility] Mexicocode Phone Number [employer] [facility], [address] [facility] [address] * HIV-1 Antigen with HIV-1/2 Antibody (11/18/2018 6:37 PM CDT) HIV-1 Antigen with HIV Nonreactive Nonreactive [facility] 1&[address] [facility] Specimen Blood Performing Organization Address City/[facility]/Zipcode Phone Number [facility] [address] [place] [address] [facility] * Histoplasma Ab by Complement fixation [...] analytical performance characteristics have been determined by [facility]. It has not been cleared or approved by FDA. This assay has been validated pursuant to the CLIA regulations and is used for clinical purposes. Specimen Blood Narrative Performed At Performing Lab [facility] *[employer] [facility] [address] [place] [address] Vlad Cazares MD Performing Organization Address City/State/Zipcode Phone Number [facility], [address] [place], [place] INC[facility]PORATED [facility] [address] * MR brain without & with IV contrast (11/18/2018 5:55 PM CDT) Specimen Narrative Performed At FINAL REPORT SPIR[facility] Navigation MR, BRAIN, WITH \\T\\ WITHOUT CONTRAST INDICATION: Neoplasm: head, EMPLOYMENT AGENCY MANAGER, suspected Neoplasm: head, metastatic, suspected Technique: MRI [...] MD Report Verified Date/Time:11/18/2018 19:52:30 Reading Location: [facility] Reading Room Procedure Note Interface, External Ris In - 11/18/2018 7:54 PM CDT FINAL REPORT MR, BRAIN, WITH \\T\\ WITHOUT CONTRAST INDICATION: Neoplasm: head, EMPLOYMENT AGENCY MANAGER, suspected Neoplasm: head, metastatic, suspected Technique: MRI [...] Report Verified Date/Time: 11/18/2018 19:52:30 Reading Location: [facility] Reading Room Performing Organization Address City/State/Zipcode Phone Number [facility] * EEG AWAKE AND DROWSY (11/18/2018 8:54 AM CDT) Specimen Narrative Performed At NEUROPHYSIOLOGY SECTION: EEG REPORT RAMESH MALONE S tudy: Patient: Ryan Lazcano ACC: [id number] Ordering physician: Jonny Gottlieb ICD10: R56.9 CPT: 49357 Date: 11/18/18 T otal monitoring time: 30 minutes T his is a digital EEG recorded with 32 input channels on a [employer] system and then reviewed with bipolar and [...] EEG REPORT Study: Patient: Ryan Lazcano ACC: [id number] Ordering physician: Jonny Gottlieb ICD10: R56.9 CPT: 48798 Date: 11/18/18 Total monitoring time: 30 minutes This is a digital EEG recorded with 32 input channels on a [employer] system and then reviewed with bipolar and [...] Attending Performing Organization Address City/State/Zipcode Phone Number [facility] * CT abdomen/pelvis with IV contrast (11/17/2018 3:01 PM CDT) Specimen Narrative Performed At FINAL REPORT [facility] Navigation TECHNIQUE: CT of the chest, abdomen, and [...] MD Report Verified Date/Time:11/17/2018 17:51:15 Reading Location: [address] Body Reading Room Procedure Note [...] Reading Location: [facility] B1 C013Y CT Body Reading Room Performing Organization Address City/State/Zipcode Phone Number [facility] * Troponin I (11/17/2018 4:06 AM CDT) Troponin I <0.01 0.00 - 0.03 ng/mL [facility] Specimen Blood Narrative Performed At Troponin I (TnI) levels must be interpreted in the context of the presenting [facility] symptoms and the clinical findings. Elevated TnI levels indicate myocardial [facility] damage, but are not specific for ischemic heart disease. Elevated TnI levels are seen in patients with other cardiac conditions (including myocarditis and congestive heart failure), and slight TnI elevations occur in patients with other conditions, including sepsis, renal failure, acidosis, acute neurological disease, and persistent tachyarrhythmia. Performing Organization Address City/[facility] Mexic[facility]ode Phone Number [facility] [address] [place], [place] [phone] [facility] * Hepatic function panel (11/17/2018 4:06 AM CDT) Protein, Total 7.4 6.0 - 8.3 gm/dL [facility] Albumin 4.3 3.5 - 5.0 g/dL [facility] Total Bilirubin 0.5 0.2 - 1.2 mg/dL [facility] Bilirubin, Direct 0.3 0.1 - 0.5 mg/dL [facility] [facility] Alkaline Phosphatase 82 40 - 150 U/L [facility] AST 18 5 - 34 U/L [facility] ALT 15 6 - 55 U/L [facility] Specimen Blood Performing Organization Address City/State/Zipcode Phone Number [facility] [address] [place] [address] [facility] after 01/02/2018 Insurance Payer Benefit Subscriber ID Type Phone Address Plan / Group [employer]ET[employer] - [employer] AETNA xxxxxxxxxx HMO/POS SELECT US ACCESS Advance Directives For more information, please contact: [address] [id number] Date Inactivated Comments Code Status Date Activated 12/21/2018 6:44 PM Full Code 12/06/2018 8:55 PM This code status was determined by: Patient 11/28/2018 8:04 PM Full Code 11/17/2018 2:40 AM This code status was determined by: Patient
[2019-01-03] MEDS ORDERED: LIDOCAINE 2%/ EPINEPHRINE 20ML MDV INJ ONE (15:00)
--- NOTE | 2019-01-03 15:05 | Diagnostic Imaging Report ---
Chest, 2 views, 01/03/2019. History: Dislodged chest tube. Comparison: 01/01/2019. Findings: The cardiomediastinal silhouette and pulmonary vasculature are within normal limits. Right-sided chest tube is no longer present. Lateral right pneumothorax has slightly increased now measuring 3.2 cm in maximal separation. Right upper lobe mass is again noted. There is no new consolidation or pleural effusion. There are no acute osseous or soft tissue abnormalities. Impression: Slight increase in right pneumothorax. Signed by: Antonio Montemayor on 01/03/2019 3:01 PM
[2019-01-03] MEDS ORDERED: HYDROMORPHONE 1MG/1ML INJ IM NR (15:28)
[2019-01-03 15:48] LABS: BASOPHILS # (AUTO) 0.1 (0.0-0.1); BASOPHILS % 0.3 % (0.0-1.0); HEMATOCRIT 36.2 % (38.2-49.6); LYMPHOCYTES # (AUTO) 3.7 (1.0-3.2); LYMPHOCYTES % 16.6 % (18.0-39.1); MEAN CORPUSCULAR HEMOGLOBIN 32.8 pg (28-32); MEAN CORPUSCULAR HGB CONC 35.9 g/dL (31-35); MEAN CORPUSCULAR VOLUME 91.4 fL (81-99); MONOCYTES # (AUTO) 1.1 (0.2-0.8); MONOCYTES % 4.8 % (4.4-11.3); NEUTROPHILS # (AUTO) 16.1 (2.1-6.9); NEUTROPHILS % 73.4 % (38.7-80.0); PLATELET COUNT 302 x10e3/uL (140-360); RED BLOOD COUNT 3.96 x10e6/uL (4.3-5.7); RED CELL DISTRIBUTION WIDTH 13.4 % (11.7-14.4)
[2019-01-03 16:08] LABS: ALANINE AMINOTRANSFERASE 32 IU/L (0-55); ALBUMIN 2.1 g/dL (3.5-5.0); ALBUMIN/GLOBULIN RATIO 0.5 (0.8-2.0); ALKALINE PHOSPHATASE 100 IU/L (40-150); ANION GAP 17.4 mmol/L (8-16); BLOOD UREA NITROGEN 18 mg/dL (7-26); BUN/CREATININE RATIO 36 (6-25); CALCIUM 8.6 mg/dL (8.4-10.2); CARBON DIOXIDE 26 mmol/L (22-29); CHLORIDE 89 mmol/L (98-107); EST GLOMERULAR FILTRATION RATE > 60 ML/MIN (60-); GLUCOSE 208 mg/dL (74-118); POTASSIUM 3.4 mmol/L (3.5-5.1); SODIUM 129 mmol/L (136-145)
[2019-01-03] MEDS ORDERED: ONDANSETRON HCL INJ 2MG/ML 2ML 2 MG/ML VIAL IV PRN (16:15)
[2019-01-03] MEDS ORDERED: SODIUM CHLORIDE FLUSH 10 ML SYR INJ PRN (16:15)
--- OUTSIDE RECORDS SUMMARY | 2019-01-03 16:21 | XMS REPORT | Clinical Summary ---
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 site, right (HCC) 01/01/2019 Hospital Computed Tomography Encounter Jesenia Whittington MD 1, [facility] Ct Room Primary lung cancer with metastasis [...] pulmonary disease, unspecified COPD type (HCC) 12/06/2018 [facility] Cardiology - Encounter 12/21/2018 12/06/2018 Travel Hussain [...] TRANSTRACH/ TRANSBRONCH SAMPLING 11/22/2018 Surgery Trung Duvall, VIDEO GAME PROGRAMMER 11/18/2018 Anesthesia Event Virtual, Surgeon PROCEDURE DONE OUTSIDE OR 11/18/2018 Surgery Jonny Gottlieb MD Bhattarai, Alok, MD Tirukkovalluri, Srilakshmi, MD Adio, Titilola R., MD Brain mass; Cerebral edema (HCC); Encephalopathy; Lung mass; Centrilobular emphysema (HCC); Smoker; Non-small cell lung cancer with metastasis (HCC); Non-small cell lung cancer, unspecified laterality (HCC); Goals of care, counseling/discussion 11/17/2018 [facility] General Internal Medicine - Encounter 11/28/2018 11/17/2018 [...] Coleman, Bubba Lucia MD 01/09/2019 Appointment Radiology Blaine, Jorge Block MD [facility] [place], [place] [id number] 01/16/2019 Procedure visit Radiation Oncology Implants Device Identifier Shelf Expiration Date Model / Serial / Lot Implanted Type Area Manufactur er 03/17/2021 REF-HUS-V6 / / [id number] Valve Sys Ibv 6mm [facility] Ref-Hus-V6 - IMPLANTS N/A: Trachea SPIRATION [id number] Implanted: Qty: 1 on 12/17/2018 by Leida Mcintosh MD 11/15/2020 REF-HUS-V7 / / [id number] Valve Sys Ibv 7mm [facility] Ref-Hus-V7 - IMPLANTS N/A: Trachea SPIRATION [id number] Implanted: Qty: 1 on 12/17/2018 by Leida [...] Routine 11/26/2018 CLINICIAN 12:28 PM CDT [place] CONDENSER TUBE TENDER IN OR 30 Routine 11/26/2018 MINUTE INCREMENTS [...] CDT) Specimen Narrative Performed At FINAL REPORT [employer] CT of the chest and abdomen, 01/01/2019. [...] MD Report Verified Date/Time:01/01/2019 17:57:02 Reading Location: [facility] C013W Consult Reading Room Procedure Note [...] Report Verified Date/Time: 01/01/2019 17:57:02 Reading Location: [facility] C013W Consult Reading Room Performing Organization Address City/State/Zipcode Phone Number [employer] * CT Chest with IV Contrast (01/01/2019 12:23 PM CDT) Only the most recent of 2 results within the time period is included. Specimen Narrative Performed At FINAL REPORT [employer] CT of the chest and abdomen, 01/01/2019. [...] MD Report Verified Date/Time:01/01/2019 17:57:02 Reading Location: [address] Consult Reading Room Procedure Note Interface, [...] Report Verified Date/Time: 01/01/2019 17:57:02 Reading Location: [facility] B1 C013W Consult Reading Room Performing Organization Address City/State/Zipcode Phone Number [employer] * POC-Creatinine (01/01/2019 11:57 AM CDT) POC-Creatinine 0.2 (L)Comment: TESTED AT 0.6 - 1.3 mg/dL [facility] [address] [address] POC-EGFR 490 mL/min/1.73M2 [facility] Specimen Blood Performing Organization Address City/[facility]/Zipcode Phone Number [facility] [address] [phone] [facility] * XR chest 1 view portable / bedside (12/21/2018 5:23 AM CDT) Only the most recent of 23 results within the time period is included. Specimen Narrative Performed At FINAL REPORT [employer] TECHNIQUE: Frontal view of the chest. INDICATION: [...] MD Report Verified Date/Time:12/21/2018 07:48:59 Reading Location: [facility] B1 C013Y CT Body Reading Room Procedure [...] Report Verified Date/Time: 12/21/2018 07:48:59 Reading Location: [facility] B1 C013Y CT Body Reading Room Performing Organization Address City/State/Zipcode Phone Number [facility] * CBC with platelet count + automated diff (12/20/2018 5:49 AM CDT) Only the most recent of 17 results within the time period is included. WBC 12.7 (H) 3.5 - 10.5 K/L [facility] RBC 3.56 (L) 4.63 - 6.08 M/L [facility] Hemoglobin 11.5 (L) 13.7 - 17.5 GM/DL [facility] Hematocrit 34.1 (L) 40.1 - 51.0 % [facility] MCV 95.8 (H) 79.0 - 92.2 fL [facility] MCH 32.3 (H) 25.7 - 32.2 pg [facility] MCHC 33.7 32.3 - 36.5 GM/DL [facility] RDW 13.1 11.6 - 14.4 % [facility] Platelets 222 150 - 450 K/CU MM [facility] MPV 9.5 9.4 - 12.4 fL [facility] nRBC 0 0 - 0 /100 WBC [facility] % Neutros 87 % [facility] % Lymphs 8 % [facility] % Monos 3 % [facility] % Eos 0 % [facility] % Baso 0 % [facility] # Neutros 10.96 (H) 1.78 - 5.38 K/L [facility] # Lymphs 0.97 (L) 1.32 - 3.57 K/L [facility] # Monos 0.32 0.30 - 0.82 K/L [facility] # Eos 0.02 (L) 0.04 - 0.54 K/L [facility] # Baso 0.02 0.01 - 0.08 K/L [facility] Immature 3 (H) 0 - 1 % [facility] Granulocytes-[facility] Specimen Blood Performing Organization Address City/State/Zipcode Phone Number [facility] [address] [place] [address] MEDICAL CENTER * Basic Metabolic Panel (12/20/2018 5:49 AM CDT) Only the most recent of 20 results within the time period is included. Sodium 131 (L) 136 - 145 meq/L [facility] Potassium 3.9 3.5 - 5.1 meq/L [facility] Chloride 99 98 - 107 meq/L [facility] CO2 24 22 - 29 meq/L [facility] BUN 18 7 - 21 mg/dL [facility] Creatinine 0.47 (L) 0.57 - 1.25 mg/dL [facility] Glucose 119 (H) 70 - 105 mg/dL [facility] Calcium 7.9 (L) 8.4 - 10.2 mg/dL [facility] EGFR Comment: INSUFFICIENT CLINICAL mL/min/1.[address] [facility] DATA TO CALCULATE ESTIMATED [facility] GFR. Specimen Blood Performing Organization Address City/[facility] [place] [address] [phone] * TRANSFUSION SERVICE REPORT - SCAN [...] is included. ABO/RH AUTOMATED (BEAKER) O POSITIVE [facility] Ab Scrn NEGATIVE [facility] Specimen Blood Performing Organization Address City/[facility] Phone Number [address] [address] [facility] * aPTT (12/17/2018 6:08 AM CDT) Only the most recent of 2 results within the time period is included. PTT 30.8 22.5 - 36.0 seconds [facility] Specimen Blood Performing Organization Address City/[facility] Phone Number [phone] [place] [address] * Prothrombin time/INR (12/17/2018 6:08 AM CDT) Only the most recent of 2 results within the time period is included. Protime 13.6 11.9 - 14.2 seconds [facility] INR 1.1 <=5.9 [facility] Specimen Blood Narrative Performed At Effective 11/13/2018: PT Reference Range Change [facility] New: 11.9-14.2Previous: 11.7-14.7 [facility] RECOMMENDED COUMADIN/WARFARIN INR THERAPY RANGES STANDARD DOSE: 2.0-3.0Includes: PROPHYLAXIS for venous thrombosis, systemic embolization; TREATMENT for venous thrombosis and/or pulmonary embolus. HIGH RISK: Target INR is 2.5-3.5 for patients wiht mechanical heart valves. Performing Organization Address City/[facility] Phone Number [address] * Osmolality, serum (12/17/2018 6:08 AM CDT) Osmolality Serum 280 275 - 295 mOsm/kg [facility] Specimen Blood Performing Organization Address [facility] Phone Number [address] * Sodium, random urine (12/16/2018 10:11 PM CDT) Sodium Urine 89 meq/L [facility] Specimen Urine Narrative Performed At Reference Range: No Normals [facility] Performing Organization Address City/[facility] Phone Number [address] * Osmolality, urine (12/16/2018 10:11 PM CDT) Osmolality, Ur 1,063 40-1,400 mOsm/kg [facility] Specimen Urine Performing Organization Address City/[facility] Phone Number [place] [phone] * CBC (Hemogram only) (12/09/2018 4:08 AM CDT) Only the most recent of 3 results within the time period is included. WBC 12.8 (H) 3.5 - 10.5 K/L [facility] RBC 3.75 (L) 4.63 - 6.08 M/L [facility] Hemoglobin 12.3 (L) 13.7 - 17.5 GM/DL [facility] Hematocrit 36.4 (L) 40.1 - 51.0 % [facility] MCV 97.1 (H) 79.0 - 92.2 fL [facility] MCH 32.8 (H) 25.7 - 32.2 pg [facility] MCHC 33.8 32.3 - 36.5 GM/DL [facility] RDW 13.3 11.6 - 14.4 % [facility] Platelets 218 150 - 450 K/CU MM [facility] MPV 9.8 9.4 - 12.4 fL [facility] nRBC 0 0 - 0 /100 WBC [facility] Specimen Blood Performing Organization Address City/[facility]/Zipcode Phone Number [facility] [address] [place] [address] [phone] [address] * Magnesium (12/09/2018 4:08 AM CDT) Only the most recent of 6 results within the time period is included. Magnesium 2.0Comment: Specimen slightly 1.6 - 2.6 mg/dL [facility] hemolyzed [facility] Specimen Blood Performing Organization Address City/[facility]/Zipcode Phone Number [facility] [address] [place] [address] [phone] [place] [address] * Procalcitonin (12/07/2018 4:20 AM CDT) Procalcitonin <0.05 <0.05 ng/mL [facility] Specimen Blood Narrative Performed At SEPSIS RISK (ng/mL) [facility] Low:0.05-0.50 [facility] Intermediate: 0.51-2.00 High: >=2.01 Performing Organization Address City/[facility] [place] [address] [facility] * PT/aPTT (12/07/2018 4:20 AM CDT) Only the most recent of 2 results within the time period is included. Protime 14.6 (H) 11.9 - 14.2 seconds [facility] INR 1.2 <=5.9 [facility] PTT 32.2 22.5 - 36.0 seconds [facility] Specimen Blood Narrative Performed At Effective 11/13/2018: PT Reference Range Change [facility] New: 11.9-14.2Previous: 11.7-14.7 [facility] RECOMMENDED COUMADIN/WARFARIN INR THERAPY RANGES STANDARD DOSE: 2.0-3.0Includes: PROPHYLAXIS for venous thrombosis, systemic embolization; TREATMENT for venous thrombosis and/or pulmonary embolus. HIGH RISK: Target INR is 2.5-3.5 for patients wiht mechanical heart valves. Performing Organization Address [facility] [place] [address] [facility] * RHYTHM STRIP - SCAN (11/29/2018 11:11 AM CDT) Narrative Performed At * POC-Glucose meter (11/28/2018 1:18 PM CDT) Only the most recent of 41 results within the time period is included. POC-Glucose Meter 105Comment: [facility] - 110 mg/dL [address] Specimen Blood Performing Organization Address City/[facility] Phone Number [address] [address] [facility] * Coccidioides antibodies (11/28/2018 5:45 AM [...] Specimen Blood Narrative Performed At Performing Lab [facility] *[employer], [employer] [id number] [place] [phone] Vlad Cazares MD Performing Organization Address [facility] Phone Number [employer], [address] [place] [address] [facility] [address] * Blastomyces antibody (11/26/2018 2:21 PM CDT) Blastomyces Ab,Id NEGATIVE [facility] Comment: INCORPORATED REFERENCE RANGE: NEGATIVE INTERPRETIVE CRITERIA: NEGATIVE: Antibody Not Detected POSITIVE: Antibody Detected A positive result is diagnostic of active or recent blastomycosis and is found in approximately 80% of proven cases of blastomycosis. Specimen Blood Narrative Performed At Performing [facility] *[employer] [address] [place] [address] Vlad Cazares MD Performing Organization Address City/[facility] Phone Number [employer], [address] [facility] [address] * Aspergillus galactomannan antigen (11/26/2018 2:21 PM CDT) Aspergillus Index Value <0.50 [facility] Aspergillus Antigen NOT DETECTED [facility] Comment: INCORPORATED REFERENCE RANGE: <0.50, NOT DETECTED A negative result does not exclude invasive aspergillosis. Follow-up testing may be indicated for high-risk patients. Specimen Blood Narrative Performed At Performing Lab [facility] *[employer] [facility] [employer] [facility] [address] [place] [address] Vlad Cazares MD Performing Organization Address City/State/Zipcode Phone Number [facility] [employer], [address] [place], [place] INCORPORATED [facility] [address] * REPORT OF PROCEDURE - ENDOSCOPY URL (11/26/2018 12:37 PM CDT) Narrative Performed At * CYTOLOGY REQUEST (11/26/2018 12:29 PM CDT) Only the most recent of 2 results within the time period is included. Cytology See Separate Report [facility] Specimen BAL Performing Organization Address City/State/Zipcode Phone Number [facility] [address] [place] [address] [facility] * Cytology (11/26/2018 12:29 PM CDT) Only the most recent of 2 results within the time period is included. Case Report Medical Cytology [facility] Report [facility] Case: [id number] Authorizing Provider:Leida Mcintosh MDCollected: 11/26/2018 1229 Ordering Location: [facility] PER[facility] Received: 11/26/2018 1305 SERVICES Pathologist: Ubaldo Ortiz MD Specimen:Lung, Right Upper Lobe, BAL DIAGNOSIS LUNG, RIGHT UPPER LOBE, BAL [facility] (CYTOSPINS): [facility] - NON SMALL CELL CARCINOMA, POORLY DIFFERENTIATED, WITH DEGENERATIVE FEATURES Signing Pathologist Direct Phone Line: [phone] COMMENT Please also see surgical [facility] pathology report [id number] and [facility] cytopathology report [id number]. CPT Code(s) 56741 [facility] CLINICAL DATA Lung mass [facility] SPECIMEN SOURCE LUNG, RIGHT UPPER LOBE BAL [facility] GROSS DESCRIPTION Prepared 4 cytospins from [address] [facility] ml blood-tinged fluid [facility] Collected: [id number] Received: [id number] MICROSCOPIC DESCRIPTION Few degenerating atypical [facility] cells consistent with [facility] non-small cell carcinoma are present. Benign bronchial epithelial cells and macrophages are present in background. STATEMENT OF ADEQUACY Satisfactory [facility] Gross assessment was [facility] performed at [place], Department of [facility] Pathology, [address] [place] [address], Technical component was [facility] performed at [place], Department of [facility] Pathology, [address] [place] [address], Professional component [facility] was performed at [place], Department of [facility] Pathology, [address] [place] [address], Specimen BAL Narrative Performed At Performing Organization Address City/[facility] Phone Number [address] [address] [facility] * Surgically obtained culture + gram stain (11/26/2018 12:28 PM CDT) Only the most recent of 2 results within the time period is included. Result <1+ Viridans Streptococcus (A) [facility] Gram Stain Result No WBCs [facility] Gram Stain Result No organisms seen [facility] Specimen Fine Needle Aspirate Performing Organization Address City/[facility] Phone Number [address] [address] [facility] * Fungus culture + smear (11/26/2018 12:28 PM CDT) Only the most recent of 3 results within the time period is included. Result No fungus isolated in 28 days [facility] Fungus Smear No fungi seen [facility] Specimen Fine Needle Aspirate Performing Organization Address City/[facility]/Zipcode Phone Number [address] [address] [facility] * FINE NEEDLE ASPIRATE (FNA) REQUEST (11/26/2018 12:28 PM CDT) Cytology See Separate Report [facility] Specimen Fine Needle Aspirate Performing Organization Address City/[facility]/Zipcode Phone Number [facility] [address] [place] [address] [facility] * FL radio rigger in or 30 minute increments (11/26/2018 12:28 PM CDT) Specimen Narrative Performed At FLUOROSCOPIC UNIT UTILIZED-NO INTERPRETATION REQUESTED. [facility] Procedure Note Interface, External Ris In - 12/02/2018 5:13 PM CDT FLUOROSCOPIC UNIT UTILIZED-NO INTERPRETATION REQUESTED. Performing Organization Address [facility] Phone Number [facility] * Fine Needle Aspirate by Clinician (11/26/2018 12:28 PM CDT) Case Report Medical Cytology [facility] Report [facility] Case: [id number] Authorizing Provider:Leida Mcintosh MDCollected: 11/26/2018 1228 Ordering Location: [facility] Received: 11/26/2018 1305 SERVICES Pathologist: Ubaldo Ortiz MD Specimen:Lung, Right Upper Lobe DIAGNOSIS LUNG, RIGHT UPPER LOBE, FNA BY [facility] CLINICIAN (CYTOSPINS AND CELL [facility] BLOCK OF ASPIRATE): - NON SMALL CELL CARCINOMA, POORLY DIFFERENTIATED Signing Pathologist Direct Phone Line: [phone] COMMENT Please also see surgical [facility] pathology report [id number] and [facility] cytopathology report [id number]. CPT Code(s) 80308, 09082 [facility] CLINICAL DATA Lung mass [facility] SPECIMEN SOURCE LUNG, RIGHT UPPER LOBE FNA [facility] GROSS DESCRIPTION Prepared cell block(A2) and [address] [facility] cytospins from 42 ml cytorich [facility] red fixative sample Collected: [id number] Received: [id number] SPECIAL STUDIES The interpretation of this [facility] case included the use of [facility] immunohistochemistry or special stains. Control Slides Examined: In-house known positive controls were evaluated along with the test tissue. These control slides run alongside of the patients sample show appropriate staining. Internal positive and negative controls when available are evaluated Immunohistochemistry technical testing was performed at [facility], Pathology Laboratory where it was developed [...] complexity clinical laboratory testing. Gross assessment was [facility] performed at [place], Department [facility] Pathology, [address] [place] [address], Technical component was [facility] performed at [place], Department of [facility] Pathology, [address] [place] [address], Professional component [facility] was performed at [place], Department of [facility] Pathology, [address] [place] [address], Specimen Fine Needle Aspirate Narrative Performed At Performing Organization Address City/State/Zipcode Phone Number [address] [address] [facility] * Tissue Exam (11/26/2018 12:27 PM CDT) Case Report Surgical Pathology [facility] Report [facility] Case: [id number] Authorizing Provider:Leida Mcintosh MDCollected: 11/26/2018 1227 Ordering Location: [facility] Received: 11/26/2018 1307 SERVICES Pathologist: Nasra Plummer MD Specimen:Lung, Right Upper Lobe, TBBX, process in cytology for colloidion bag, reflex genetic markers ADDENDUM 2 This addendum is issued to [facility] report results of pending [facility] biomarker study performed at [facility]. RESULT: - NTRK1, NTRK2, NTRK3 ALTERATIONS: NOT DETECTED Please see scanned report for further information. ADDENDUM This addendum is being issued [facility] to report the results of [facility] biomarker testing performed at [facility]. RESULT: - EGFR mutation: NOT DETECTED - BRAF mutation: NOT DETECTED - FISH analysis for ALK gene rearrangement is NEGATIVE - FISH analysis for ROS1 gene rearrangement is NEGATIVE - [employer] for PDL-1 (22C3 clone) is HIGH (90%, 3+) Please refer to attached scanned report for further results. DIAGNOSIS A. LUNG, RIGHT UPPER LOBE, [facility] TRANSBRONCHIAL BIOPSY: [facility] - ADENOCARCINOMA, CONSISTENT WITH PULMONARY PRIMARY (SEE COMMENT) Signing Pathologist Direct Phone Line: [phone] COMMENT A. Immunostain for TTF1 is [facility] positive and p40 is negative, [facility] supporting the above diagnosis. CPT Code(s) [address] [facility] [address] [facility] [id number] CLINICAL HISTORY Lung mass [facility] SPECIMEN SOURCE A. Right upper lobe lung [facility] transbronchial biopsy [facility] GROSS DESCRIPTION Specimen A: The specimen is [facility] received in a formalin-filled [facility] container and labeled with the patient's [...] in a collodion bag. MICROSCOPIC DESCRIPTION Performed. [facility] SPECIAL STUDIES The interpretation of this [facility] case included the use of [facility] immunohistochemistry or special stains. Control Slides Examined: In-house known positive controls were evaluated along with the test tissue. These control slides run alongside of the patients sample show appropriate staining. Internal positive and negative controls when available are evaluated Immunohistochemistry technical testing was performed at [facility], Pathology Laboratory where it was developed [...] complexity clinical laboratory testing. Gross assessment was [facility] performed at [place], Pathology, [address] [place] [address], Technical component was [facility] performed at [place], Pathology, [address] [place] [address], Professional component [facility] was performed at [facility] Pathology, [address] [place] [address], Specimen Tissue Narrative Performed At Performing Organization Address City/[facility]/Zipcode Phone Number [address] [address] [facility] * AFB, Baterial, Fungi pcr (11/26/2018 8:30 AM CDT) Scan Result [facility] Specimen Tissue Narrative Performed At Performing Organization Address City/State/Zipcode Phone Number [facility] [address] [place], [place] * roe GARCIA (11/26/2018 5:59 AM CDT) ABO Grouping O [facility] Rh Factor POS [facility] Specimen Blood Performing Organization Address City/State/Zipcode Phone Number [facility] [address] [place] [address] [facility] * Comprehensive metabolic panel (11/26/2018 5:13 AM CDT) Protein, Total 5.6 (L) 6.0 - 8.3 gm/dL [facility] Albumin 3.3 (L) 3.5 - 5.0 g/dL [facility] Alkaline Phosphatase 55 40 - 150 U/L [facility] Total Bilirubin 0.6 0.2 - 1.2 mg/dL [facility] Sodium 134 (L) 136 - 145 meq/L [facility] Potassium 3.9 3.5 - 5.1 meq/L [facility] Chloride 104 98 - 107 meq/L [facility] CO2 25 22 - 29 meq/L [facility] BUN 24 (H) 7 - 21 mg/dL [facility] Creatinine 0.64 0.57 - 1.25 mg/dL [facility] Glucose 111 (H) 70 - 105 mg/dL [facility] Calcium 8.2 (L) 8.4 - 10.2 mg/dL [facility] AST 11 5 - 34 U/L [facility] ALT 21 6 - 55 U/L [facility] EGFR Comment: INSUFFICIENT CLINICAL mL/min/1.[address] [facility] DATA TO CALCULATE ESTIMATED [facility] GFR. Specimen Blood Performing Organization Address City/State/Zipcode Phone Number [facility] [address] [place] [address] [facility] * CT chest without IV contrast [...] MD Report Verified Date/Time:11/22/2018 19:04:17 Reading Location: [facility] C013Y CT Body Reading Room Procedure [...] Report Verified Date/Time: 11/22/2018 19:04:17 Reading Location: [facility] B1 C013Y CT Body Reading Room Performing Organization Address City/State/Zipcode Phone Number GE [facility] * SPIN/CONCENTRATION CHARGE (11/22/2018 12:58 PM CDT) Only the most recent of 3 results within the time period is included. Concentration charged Done [facility] Specimen Sputum - Expectorated Performing Organization Address [facility] Phone Number [address] * REPORT OF PROCEDURE - ENDOSCOPY URL (11/22/2018 12:53 PM CDT) Narrative Performed At * EBUS FNA REQUEST (11/22/2018 8:20 AM CDT) Only the most recent of 2 results within the time period is included. Cytology See Separate Report [facility] Specimen EBUS Fine Needle Aspirate - Lymph Node, Interlobar, Right, Station 11R Performing Organization Address [facility] Hospital[facility]t Phone Number [address] * Fine Needle Aspiration by EBUS (11/22/2018 8:20 AM CDT) Only the most recent of 2 results within the time period is included. Case Report Medical Cytology [facility] Case: [id number] Authorizing Provider:Leida Mcintosh MDCollected: 11/22/2018 08 Ordering Location: [address] Received: 11/22/2018 0854 Service Pathologist: Ubaldo Ortiz MD Specimen:Lymph Node, Interlobar, Right, Station 11R DIAGNOSIS LYMPH NODE, INTERLOBAR RIGHT, [facility] STATION 11R EBUS FNA BY [facility] CLINICIAN (CYTOSPINS AND CELL BLOCK OF ASPIRATE): - LYMPHOCYTES PRESENT - NO MALIGNANT CELLS IDENTIFIED Signing Pathologist Direct Phone Line: [phone] COMMENT Please see cytopathology cases [facility] [id number] and [id number] [facility] CPT Code(s) 64797, [address]250 [facility] CLINICAL DATA Lung Mass, mediastinal [facility] lymphadenopathy, adrenal and [facility] brain masses. Presumed lung cancer with mets. SPECIMEN SOURCE LYMPH NODE, INTERLOBAR RIGHT, [facility] STATION 11R EBUS FNA [facility] GROSS DESCRIPTION 35 mls in cytorich red; [address] [facility] cytospins, cell block [facility] (collodion bag) Collected: [id number] Received: [id number] SPECIAL STUDIES The interpretation of this [facility] case included the use of [facility] immunohistochemistry or special stains. Control Slides Examined: In-house known positive controls were evaluated along with the test tissue. These control slides run alongside of the patients sample show appropriate staining. Internal positive and negative controls when available are evaluated Immunohistochemistry technical testing was performed at [facility], Pathology Laboratory where it was developed [...] complexity clinical laboratory testing. Gross assessment was [facility] performed at [place], Pathology, [address] [place] [address], Technical component was [facility] performed at [place], Pathology, [address] [place] [address], Professional component [facility] was performed at [place], Pathology, [address] [place] [address], Specimen EBUS Fine Needle Aspirate - Lymph Node, Interlobar, Right, Station 11R Narrative Performed At Performing Organization Address City/State/Zipcode Phone Number [facility] [address] [place], [place] [phone] [facility] * Bronchial culture + gram stain (11/22/2018 8:04 AM CDT) Result 3+ Normal respiratory selam [facility] Gram Stain Result <1+ WBCs [facility] Gram Stain Result No organisms seen [facility] Specimen BAL Performing Organization Address City/State/Zipcode Phone Number [facility] [address] [place] [address] [facility] * Phosphorus (11/20/2018 4:55 AM CDT) Only the most recent of 3 results within the time period is included. Phosphorus 3.3 2.3 - 4.7 mg/dL [facility] Specimen Blood Narrative Performed At Check Serum Phosphorus level 4 hours after IV phosphorus replacement or [address] [facility] after PO replacement completed. [facility] Performing Organization Address City/[facility] Phone Number [place] [phone] [place] [address] [facility] * NM bone scan whole body (11/19/2018 4:43 PM CDT) Specimen Narrative Performed At FINAL REPORT [facility] PROCEDURE: BONE SCAN, WHOLE BODY CPT CODE:54130 INDICATION:Lung mass,neoplasm within the head, chest, and [...] MD Report Verified Date/Time:11/19/2018 17:29:03 Reading Location: [address] [employer] Reading Room Procedure Note Interface, External Ris In - 11/19/2018 5:31 PM CDT FINAL REPORT PROCEDURE: BONE SCAN, WHOLE BODY CPT CODE: 97778 INDICATION: Lung mass, neoplasm within the head, [...] Report Verified Date/Time: 11/19/2018 17:29:03 Reading Location: [address] [employer] Reading Room Performing Organization Address City/State/Zipcode Phone [...] At Performing Organization Address City/State/Zipcode Phone Number [facility] [address] * Histoplasma antigen, urine (11/18/2018 [...] analytical performance characteristics have been determined by [facility]. It has not been cleared or approved by the U.S. Food and Drug Administration.The FDA has determined that such clearance or approval is not necessary. This assay has been validated pursuant to the CLIA regulations andis used for clinical purposes. Specimen Urine Narrative Performed At Performing Lab [facility] *[employer] [facility] [address] [place] [address] Vlad Cazares MD Performing Organization Address City/[facility] Phone Number [facility], [address] [facility] [address] * HIV-1 Antigen with HIV-1/2 Antibody (11/18/2018 6:37 PM CDT) HIV-1 Antigen with HIV Nonreactive Nonreactive [facility] 1&2 Antibody [facility] Specimen Blood Performing Organization Address City/[facility]/Zipcode Phone Number [facility] [address] [place] [address] [facility] * Histoplasma Ab by Complement fixation [...] analytical performance characteristics have been determined by [facility]. It has not been cleared or approved by FDA. This assay has been validated pursuant to the CLIA regulations and is used for clinical purposes. Specimen Blood Narrative Performed At Performing Lab [facility] *[employer] [facility] [address] [place] [address] Vlad Cazares MD Performing Organization Address City/State/Zipcode Phone Number [facility], [address] [place], [place] [facility] [address] * MR brain without & with IV contrast (11/18/2018 5:55 PM CDT) Specimen Narrative Performed At FINAL REPORT [facility] MR, BRAIN, WITH \\T\\ WITHOUT CONTRAST INDICATION: Neoplasm: head, DIAL PRINTER, suspected Neoplasm: head, metastatic, suspected Technique: MRI [...] MD Report Verified Date/Time:11/18/2018 19:52:30 Reading Location: [facility] Radiology Reading Room Procedure Note Interface, External Ris In - 11/18/2018 7:54 PM CDT FINAL REPORT MR, BRAIN, WITH \\T\\ WITHOUT CONTRAST INDICATION: Neoplasm: head, DIAL PRINTER, suspected Neoplasm: head, metastatic, suspected Technique: MRI [...] Report Verified Date/Time: 11/18/2018 19:52:30 Reading Location: [facility] Radiology Reading Room Performing Organization Address City/State/Zipcode Phone Number [facility] * EEG AWAKE AND DROWSY (11/18/2018 8:54 AM CDT) Specimen Narrative Performed At NEUROPHYSIOLOGY SECTION: EEG REPORT RAMESH MALONE S tudy: Patient: Ryan Lazcano ACC: [id number] Ordering physician: Jonny Gottlieb ICD10: R56.9 CPT: 07423 Date: 11/18/18 T otal monitoring time: 30 minutes T his is a digital EEG recorded with 32 input channels on a [employer] system and then reviewed with bipolar and [...] EEG REPORT Study: Patient: Ryan Lazcano ACC: [id number] Ordering physician: Jonny Gottlieb ICD10: R56.9 CPT: 00123 Date: 11/18/18 Total monitoring time: 30 minutes This is a digital EEG recorded with 32 input channels on a [employer] system and then reviewed with bipolar and [...] Attending Performing Organization Address City/State/Zipcode Phone Number [facility] * CT abdomen/pelvis with IV contrast (11/17/2018 3:01 PM CDT) Specimen Narrative Performed At FINAL REPORT [facility] TECHNIQUE: CT of the chest, abdomen, and [...] MD Report Verified Date/Time:11/17/2018 17:51:15 Reading Location: [address] Body Reading Room Procedure Note [...] Report Verified Date/Time: 11/17/2018 17:51:15 Reading Location: [facility] B1 C013Y CT Body Reading Room Performing Organization Address City/State/Zipcode Phone Number [facility] * Troponin I (11/17/2018 4:06 AM CDT) Troponin I <0.01 0.00 - 0.03 ng/mL [facility] Specimen Blood Narrative Performed At Troponin I (TnI) levels must be interpreted in the context of the presenting [facility] symptoms and the clinical findings. Elevated TnI levels indicate myocardial [facility] damage, but are not specific for ischemic heart disease. Elevated TnI levels are seen in patients with other cardiac conditions (including myocarditis and congestive heart failure), and slight TnI elevations occur in patients with other conditions, including sepsis, renal failure, acidosis, acute neurological disease, and persistent tachyarrhythmia. Performing Organization Address City/[facility] Phone Number [facility] [address] [place], [place] [phone] [facility] * Hepatic function panel (11/17/2018 4:06 AM CDT) Protein, Total 7.4 6.0 - 8.3 gm/dL [facility] Albumin 4.3 3.5 - 5.0 g/dL [facility] Total Bilirubin 0.5 0.2 - 1.2 mg/dL [facility] Bilirubin, Direct 0.3 0.1 - 0.5 mg/dL [facility] Alkaline Phosphatase 82 40 - 150 U/L [facility] AST 18 5 - 34 U/L [facility] ALT 15 6 - 55 U/L [facility] Specimen Blood Performing Organization Address City/State/Zipcode Phone Number [facility] [address] [place] [address] [facility] after 01/02/2018 Insurance Payer Benefit Subscriber ID Type Phone Address Plan / Group AETNA - MGD CARE AETNA xxxxxxxxxx HMO/POS SELECT US ACCESS Advance Directives For more information, please contact: [address] [phone] Date Inactivated Comments Code Status Date Activated 12/21/2018 6:44 PM Full Code 12/06/2018 8:55 PM This code status was determined by: Patient 11/28/2018 8:04 PM Full Code 11/17/2018 2:40 AM This code status was determined by: Patient
--- NOTE | 2019-01-03 16:37 | Diagnostic Imaging Report ---
Chest, 1 view, 01/03/2019. History: Chest tube insertion. Comparison: X-ray from earlier today. Findings: The cardiomediastinal silhouette and pulmonary vasculature are within normal limits for a portable exam. The right-sided chest tube is present terminating at the apex. Minimal right apical pneumothorax is present. Right upper lobe mass is again noted. Linear opacities are present in both lung bases. There are no acute osseous or soft tissue abnormalities. Impression: Decreased right pneumothorax post chest tube insertion. Signed by: Antonio Montemayor on 01/03/2019 4:34 PM
[2019-01-03] MEDS: SODIUM CHLORIDE 0.9% 1000ML 1,000 ML IV SCH ×2 (16:40→18:39)
[2019-01-03] MEDS: CEFTRIAXONE SOD 1 GM/NS 50 ML 50 ML IV SCH (16:40)
[2019-01-03] MEDS ORDERED: MORPHINE SULFATE INJ 4 MG/ML INJ 1ML IV PRN (16:45)
[2019-01-03] MEDS ORDERED: MORPHINE SULFATE 2 MG/ML SYR 1ML IV PRN (17:00)
--- NOTE | 2019-01-03 18:03 | Consultation ---
DATE OF CONSULTATION: 01/03/2019 Pulmonary Critical Care Consultation CHIEF COMPLAINT: Lung cancer and persistent pneumothorax. HISTORY OF PRESENT ILLNESS: The patient is a 58-year-old man. He was diagnosed with metastatic bronchogenic carcinoma about six weeks ago. He had a biopsy done at [facility] in the [facility]. He was subsequently started on radiation for brain metastases and is awaiting the initiation of immunotherapy. The patient also had a pneumothorax on presentation. He required an initial chest tube, but his lung did not re-expand. He had a subsequent pleurodesis. He also had an endobronchial valve placed, but had incomplete expansion of his lung. He subsequently went home with the chest tube and a Heimlich valve. Apparently today, he was confused and agitated and ended up pulling out his chest tube. When he came to the emergency department, he had an increase in the size of his right pneumothorax and required a chest tube. PAST SURGICAL HISTORY: 1. Lung biopsy. 2. Pleurodesis. 3. Endobronchial valve. PAST MEDICAL HISTORY: 1. Bronchogenic carcinoma with brain metastases. 2. COPD. 3. Gastroesophageal reflux. SOCIAL HISTORY: The patient is not an active drinker. He is no longer smoking. ALLERGIES: THERE ARE NO KNOWN DRUG ALLERGIES. FAMILY HISTORY: Family history is noncontributory. REVIEW OF SYSTEMS: The patient is not complaining of fevers. There is no headache. He has no neck pain. He does have some chest discomfort. He has some dyspnea. He has no abdominal pain. There is no nausea or vomiting. He has no leg edema. PHYSICAL EXAMINATION: VITAL SIGNS: The patient is afebrile. The blood pressure is 117/73 and the pulse is 87. Respiratory rate is 16. HEENT: Shows no facial swelling or erythema. CARDIAC: Reveals a regular rate and rhythm with a normal S1 and S2. LUNGS: Auscultation of lungs reveals decreased breath sounds on the right side. There is a chest tube in place with large air leak in the Pleur-evac. ABDOMEN: Soft and nontender. There is no rebound or guarding. EXTREMITIES: There is no leg edema or calf tenderness. There is no cyanosis or clubbing. SKIN: Shows no rashes. NEUROLOGIC: Shows confusion, but no focal abnormalities. LABORATORY DATA: White blood cell count is 21.9 and the hemoglobin is 13. The platelet count is 302. BUN to creatinine ratio is normal. The sodium is 129. The other electrolytes are within normal limits. IMPRESSION: 1. Metastatic bronchogenic carcinoma with brain metastases. 2. Persistent right pneumothorax with bronchopleural fistula. 3. Moderate protein-calorie malnutrition. 4. Leukocytosis. 5. Hyponatremia. PLAN: 1. Continue chest tube to negative suction. 2. Thoracic Surgery consultation, as it is unlikely the pneumothorax will re-expand with a chest tube to wall suction alone. 3. Continue Decadron for brain metastases. 4. As soon as the patient is stable and able to leave the hospital, he will resume his radiation therapy and his immunotherapy. 5. Nutritional supplements. 6. Prognosis is poor. Estevan Butt MD [facility]/JOSE RAULL /[id number]
[2019-01-03 18:15] VITALS: BP_SYST 130; BP_DIAS 70; BP_DIAS 73
--- NOTE | 2019-01-03 18:15 | NUR ---
Pt received at this time from ER. Pt is aox3 mostly ivorian speaking, but is at the bedside and speaks mongolian. Pt is has chest tube to right side of chest and and has 20cc in the chamber. Spoke with Dr. Butt and received orders to place on negative 20 suction. Pt is on O2 2L/NC.
[2019-01-03] MEDS: PANTOPRAZOLE SOD 40 MG TABEC PO SCH (18:38)
[2019-01-03] MEDS: SUCRALFATE 1 GM TAB PO SCH (18:38)
[2019-01-03] MEDS: DEXAMETHASONE 4 MG TAB PO SCH (18:39)
[2019-01-03] MEDS ORDERED: BACLOFEN10 MG PO (18:48)
[2019-01-03] MEDS ORDERED: NAMENDA10 MG PO (18:48)
[2019-01-03] MEDS ORDERED: NORCO 5-325 TA1 EACH PO (18:48)
[2019-01-03] MEDS ORDERED: LEXAPRO10 MG PO (18:48)
[2019-01-03] MEDS ORDERED: NAMENDA10 MG (18:48)
[2019-01-03 20:00] VITALS: BP 126/80
--- NOTE | 2019-01-03 21:36 | NUR ---
NO RESPIRATORY DISTRESS OBSERVED, PATIENT REPOSITION ON HIS SIDE FOR COMFORT. CALL LIGHT WITHIN EASY REACH, FAMILY MEMBERS VISITING WITH THE PATIENT AND RIGHT CHEST TUBE PATENT AND INTACT DRAINING BLOODY COLOR SECRETION.
[2019-01-04] VITALS (8 sets, daily range): BP systolic 102–133; BP diastolic 51–63
[2019-01-04] MEDS: DEXAMETHASONE 4 MG TAB PO SCH ×4 (00:26→17:23)
--- NOTE | 2019-01-04 01:06 | NUR ---
PATIENT IS SOUNDLY ASLEEP, HE'S EASY TO AROUSE. HE DENIES SHORTNESS OF BREATH OR PAIN, RIGHT CHEST TUBE INTACT.
--- NOTE | 2019-01-04 03:07 | NUR ---
PATIENT C/O PAIN TO THE RIGHT CHEST TUBE SITE, MEDICATED WITH MORPHINE 2MG INSTEAD OF THE 4MG ORDERED. FAMILY TRANSLATED, THE PATIENT STATED "I'M AFRAID OF TAKING MORPHINE BECAUSE IT'S VERY ADDICTING". HE WAS TOLD THAT 2MG OF THE MORPHINE WILL BE ADMINISTER FOR PAIN MANAGEMENT AND HIS PAIN WILL BE ASSESS FOR EFFECTIVENESS.
[2019-01-04] MEDS: SODIUM CHLORIDE 0.9% 1000ML 1,000 ML IV SCH (03:15)
[2019-01-04] MEDS: CEFTRIAXONE SOD 1 GM/NS 50 ML 50 ML IV SCH ×2 (05:24→17:23)
[2019-01-04 05:34] LABS: BASOPHILS % 0.3 % (0.0-1.0); HEMATOCRIT 28.7 % (38.2-49.6); HEMOGLOBIN 9.8 g/dL (14.0-18.0); LYMPHOCYTES # (AUTO) 0.9 (1.0-3.2); LYMPHOCYTES % 7.8 % (18.0-39.1); MEAN CORPUSCULAR HGB CONC 34.1 g/dL (31-35); MEAN CORPUSCULAR VOLUME 93.8 fL (81-99); MONOCYTES # (AUTO) 0.6 (0.2-0.8); MONOCYTES % 5.2 % (4.4-11.3); NEUTROPHILS # (AUTO) 9.8 (2.1-6.9); NEUTROPHILS % 82.3 % (38.7-80.0); PLATELET COUNT 239 x10e3/uL (140-360); RED BLOOD COUNT 3.06 x10e6/uL (4.3-5.7); RED CELL DISTRIBUTION WIDTH 13.5 % (11.7-14.4)
[2019-01-04 05:55] LABS: ALANINE AMINOTRANSFERASE 26 IU/L (0-55); ALBUMIN 1.6 g/dL (3.5-5.0); ALBUMIN/GLOBULIN RATIO 0.5 (0.8-2.0); ALKALINE PHOSPHATASE 77 IU/L (40-150); ANION GAP 12.5 mmol/L (8-16); BLOOD UREA NITROGEN 15 mg/dL (7-26); BUN/CREATININE RATIO 36 (6-25); CALCIUM 7.7 mg/dL (8.4-10.2); CARBON DIOXIDE 25 mmol/L (22-29); CHLORIDE 98 mmol/L (98-107); CREATININE, SERUM 0.42 mg/dL (0.72-1.25); EST GLOMERULAR FILTRATION RATE > 60 ML/MIN (60-); GLUCOSE 114 mg/dL (74-118); POTASSIUM 3.5 mmol/L (3.5-5.1); SODIUM 132 mmol/L (136-145)
[2019-01-04 06:21] LABS: LYMPHOCYTES % (MANUAL) 9 % (19-48); METAMYELOCYTES % (MANUAL) 2 % (0-0); MONOCYTES % (MANUAL) 4 % (3.4-9.0); NEUTROPHILS % (MANUAL) 85 % (40-74)
[2019-01-04 06:22] LABS: PLATELET ESTIMATE ADEQUATE; PLATELET MORPHOLOGY COMMENT NORMAL
--- NOTE | 2019-01-04 06:45 | Diagnostic Imaging Report ---
Frontal and lateral views of the chest. HISTORY: Pneumothorax, lung cancer, metastatic COMPARISON: Chest radiograph January 03, 2019 DISCUSSION: None, see impression IMPRESSION: 1. Unchanged appearance of the right-sided chest tube. 2. Trace right apical pneumothorax. 3. Increased right soft tissue emphysema. 4. Unchanged right upper lung mass. 5. Diffusely increased interstitial markings, compatible with mild interstitial edema. Signed by: Dr. Bk Leos D.O., M.M.M. on 01/04/2019 6:42 AM
--- NOTE | 2019-01-04 08:15 | NUR ---
Pt received in bed. Chest tube in place and has 80cc fluids noted. Pt denies any pain at this time. Continues on IVF and well tolerated. Denies SOB.
[2019-01-04] MEDS: SUCRALFATE 1 GM TAB PO SCH ×2 (08:28→17:22)
[2019-01-04] MEDS: PANTOPRAZOLE SOD 40 MG TABEC PO SCH (08:28)
[2019-01-04] MEDS: FOLIC ACID 1 MG TAB PO SCH (08:28)
[2019-01-04] MEDS: ESCITALOPRAM OXALATE 10 MG TAB PO SCH (08:28)
[2019-01-04] MEDS: BACLOFEN 10 MG TAB PO SCH ×3 (09:58→21:16)
[2019-01-04] MEDS ORDERED: HYDROCODONE/APAP 5MG-325MG TAB PO PRN (10:45)
--- NOTE | 2019-01-04 18:00 | NUR ---
Pt denies any pain at this time. Pt aox3 at this time. Chest tube to right side and patent. Continues on O2 2L/NC, denies SOB. Family at the bedside.
--- NOTE | 2019-01-04 18:07 | Progress Note ---
DATE: Pulmonary Critical Care Progress Note SUBJECTIVE: The patient's chest x-ray shows substantial re-expansion of the lung. Still has some residual pneumothorax and some air leak. PHYSICAL EXAMINATION: VITAL SIGNS: The blood pressure is 107/57, pulse is 82, and saturation 96% on 2 liters. HEENT: Shows no facial swelling or erythema. The oropharynx is normal. LYMPHATIC: Shows no submandibular, cervical, or supraclavicular adenopathy. CARDIAC: Reveals regular rate and rhythm with normal S1 and S2. PULMONARY: Auscultation of lungs show decreased breath sounds at the bases. ABDOMEN: Soft and nontender. There is no rebound or guarding. EXTREMITIES: Show no leg edema or calf tenderness. IMPRESSION: 1. Recurrent right pneumothorax with bronchopleural fistula. 2. Metastatic bronchogenic carcinoma with brain metastases. 3. Moderate protein-calorie malnutrition. 4. Leukocytosis. PLAN: 1. Continue chest tube to negative suction. 2. Repeat chest x-ray tomorrow. 3. The patient will probably need to go home with a smaller caliber chest tube attached to a Heimlich valve. We will discuss this with Interventional Radiology and CT Surgery. MD CAMRON Mascorro/F[facility]NA /[id number]
--- NOTE | 2019-01-04 19:55 | NUR ---
RIGHT CHEST TUBE SITE INTACT, NO RESPIRATORY DISTRESS OBSERVED. PATIENT CONDITION STABLE, HE DENIES SHORTNESS OF BREATH OR PAIN. FAMILY MEMBERS VISITING WITH HIM, CALL LIGHT WITHIN EASY REACH.
[2019-01-04] MEDS: MEMANTINE 10 MG TAB PO SCH (21:16)
[2019-01-05] VITALS (8 sets, daily range): BP systolic 111–137; BP diastolic 61–67
--- NOTE | 2019-01-05 00:15 | NUR ---
RIGHT CHEST TUBE INTACT, NO RESPIRATORY DISTRESS OBSERVED AND HE DENIES PAIN. REPOSITION IN BED FOR COMFORT, CALL LIGHT WITHIN EASY REACH, FAMILY MEMBERS WITH THE PATIENT.
[2019-01-05] MEDS: DEXAMETHASONE 4 MG TAB PO SCH ×4 (00:23→16:46)
[2019-01-05] MEDS: SODIUM CHLORIDE 0.9% 1000ML 1,000 ML IV SCH (00:23)
[2019-01-05] MEDS: ZOLPIDEM TARTRATE 5 MG TAB PO PRN (01:58)
--- NOTE | 2019-01-05 01:59 | NUR ---
PATIENT C/O DIFFICULTY FALLING ASLEEP, MEDICATED WITH AMBIEN 1TAB ORDERED. LIGHTS TURN OFF, FAMILY MEMBERS WITH THE PATIENT.
--- NOTE | 2019-01-05 04:20 | NUR ---
PATIENT ASLEEP, HE'S EASY TO AROUSE. RIGHT CHEST TUBE INTACT, NO RESPIRATORY DISTRESS OBSERVED AND PATIENT DENIES PAIN. BED ALARM ON, CALL LIGHT WITHIN EASY REACH, FAMILY MEMBERS WITH THE PATIENT.
[2019-01-05] MEDS: CEFTRIAXONE SOD 1 GM/NS 50 ML 50 ML IV SCH ×2 (05:56→16:12)
--- NOTE | 2019-01-05 06:37 | Diagnostic Imaging Report ---
Frontal and lateral views of the chest. HISTORY: Right-sided pneumothorax. COMPARISON: Chest radiograph January 04, 2019 DISCUSSION: Impression. IMPRESSION: 1. Unchanged appearance of the right-sided chest tube. 2. Trace right apical pneumothorax is not identified on today's exam. 3. Unchanged right soft tissue emphysema. 4. Unchanged right upper lung mass. Signed by: Dr. Juanis Carrizales M.D. on 01/05/2019 6:34 AM
[2019-01-05] MEDS ORDERED: PANTOPRAZOLE SOD 40 MG TABEC PO SCH (07:30)
[2019-01-05] MEDS: SUCRALFATE 1 GM TAB PO SCH ×2 (10:20→16:12)
[2019-01-05] MEDS: BACLOFEN 10 MG TAB PO SCH ×3 (10:20→20:41)
[2019-01-05] MEDS: MEMANTINE 10 MG TAB PO SCH ×2 (10:20→20:41)
[2019-01-05] MEDS: ESCITALOPRAM OXALATE 10 MG TAB PO SCH (10:20)
[2019-01-05] MEDS: FOLIC ACID 1 MG TAB PO SCH (10:20)
[2019-01-05] MEDS: PANTOPRAZOLE SOD 40 MG TABEC PO SCH (10:20)
--- NOTE | 2019-01-05 11:01 | Progress Note ---
DATE: SUBJECTIVE: The patient's chest x-ray shows significant re-expansion of the lung. There is only a small apical pneumothorax. He is eating. On evaluation of the Pleur-evac, he still has a substantial air leak. PHYSICAL EXAMINATION: VITAL SIGNS: The patient is afebrile. The blood pressure is 127/67, saturation is 93% on 2 L. HEENT: Shows no facial swelling or erythema. The oropharynx is normal. LYMPHATIC: Shows no submandibular, cervical, or supraclavicular adenopathy. CARDIAC: Reveals regular rate and rhythm with normal S1 and S2. There are no murmurs or rubs. LUNGS: Auscultation of lungs reveals decreased breath sounds at the bases. There is no wheezing. ABDOMEN: Soft, nontender. There is no rebound or guarding. EXTREMITIES: Show no leg edema or calf tenderness. There is no cyanosis or clubbing. There is a right-sided chest tube in place. There is significant air leak. The tube is still attached to suction. IMPRESSION: 1. Recurrent right pneumothorax with bronchopleural fistula. 2. Metastatic bronchogenic carcinoma with brain metastases. 3. Moderate protein-calorie malnutrition. PLAN: 1. Chest tube to negative suction. 2. Consult Interventional Radiology for placement of a small caliber chest tube with a Heimlich valve. If this is successful, we can plan on possible discharge on Sunday. MD CAMRON Mascorro/FABIANA /[id number]
--- NOTE | 2019-01-05 19:04 | NUR ---
BEDSIDE SHIFT REPORT PERFORMED, RECEIVED PT LAYING FOWLERS IN BED, AAOX3, RR EVEN AND NON-LABORED, O2 BY NC AT 2.5L. (R) LATERAL CHEST TUBE DRAINING TO SUCTION. LEFT PT LAYING FOWLERS IN BED, BED IN LOW LOCKED POSITION, SIDE RAILS UPX2, CALL LIGHT AND PHONE WITHIN REACH. FAMILY AT BEDSIDE.
[2019-01-06] VITALS (8 sets, daily range): BP systolic 110–138; BP diastolic 64–78
[2019-01-06] MEDS: DEXAMETHASONE 4 MG TAB PO SCH ×5 (00:14→23:58)
[2019-01-06] MEDS: CEFTRIAXONE SOD 1 GM/NS 50 ML 50 ML IV SCH ×2 (05:10→17:46)
--- NOTE | 2019-01-06 05:26 | NUR ---
bubbles noted in the water seal chamber, notified MD Juanis Butt, was informed there is an air leak and that the chest tube was bubbling yesterday. pt to receive new chest tube today. continue to monitor.
[2019-01-06 06:24] LABS: BASOPHILS % 0.2 % (0.0-1.0); HEMATOCRIT 31.2 % (38.2-49.6); HEMOGLOBIN 11.2 g/dL (14.0-18.0); LYMPHOCYTES # (AUTO) 1.3 (1.0-3.2); LYMPHOCYTES % 8.2 % (18.0-39.1); MEAN CORPUSCULAR HEMOGLOBIN 32.7 pg (28-32); MEAN CORPUSCULAR HGB CONC 35.9 g/dL (31-35); MEAN CORPUSCULAR VOLUME 91.2 fL (81-99); MONOCYTES # (AUTO) 0.5 (0.2-0.8); MONOCYTES % 3.5 % (4.4-11.3); NEUTROPHILS # (AUTO) 12.8 (2.1-6.9); NEUTROPHILS % 82.4 % (38.7-80.0); PLATELET COUNT 245 x10e3/uL (140-360); RED BLOOD COUNT 3.42 x10e6/uL (4.3-5.7); RED CELL DISTRIBUTION WIDTH 13.3 % (11.7-14.4)
--- NOTE | 2019-01-06 06:41 | Diagnostic Imaging Report ---
Chest AP 1 view HISTORY: Right-sided pneumothorax. Lung cancer. COMPARISON: Chest radiograph January 05, 2019 DISCUSSION: Stable examination. Please see impression. IMPRESSION: 1. Unchanged appearance of the right-sided chest tube with distal tip projected on the superior lateral right hemithorax.. 2. No pneumothorax. 3. Unchanged right soft tissue emphysema. 4. Unchanged right upper lung mass. 5. Trace right pleural effusion. 6. Bilateral lower lobe subsegmental atelectasis. Signed by: Dr. Juanis Carrizales M.D. on 01/06/2019 6:38 AM
[2019-01-06 06:45] LABS: ANION GAP 13.7 mmol/L (8-16); BLOOD UREA NITROGEN 9 mg/dL (7-26); BUN/CREATININE RATIO 22 (6-25); CALCIUM 7.8 mg/dL (8.4-10.2); CARBON DIOXIDE 26 mmol/L (22-29); CHLORIDE 94 mmol/L (98-107); CREATININE, SERUM 0.41 mg/dL (0.72-1.25); EST GLOMERULAR FILTRATION RATE > 60 ML/MIN (60-); GLUCOSE 110 mg/dL (74-118); SODIUM 131 mmol/L (136-145)
[2019-01-06 06:53] LABS: POTASSIUM 2.7 mmol/L (3.5-5.1)
--- NOTE | 2019-01-06 07:28 | NUR ---
PATIENT IN BED RESTING WITH HEAD OF BED ELEVATED, NO DISTRESS NOTED. RIGHT CHEST TUBE TO SUCTION, DRESSING DRY TO CHEST. O2 IN PLACE VIA N/C. BED IN LOWER POSITION, CALL LIGHT AT REACH. FAMILY AT BED SIDE.
[2019-01-06] MEDS: PANTOPRAZOLE SOD 40 MG TABEC PO SCH ×2 (07:30→14:37)
[2019-01-06] MEDS: SUCRALFATE 1 GM TAB PO SCH ×2 (07:30→17:00)
--- NOTE | 2019-01-06 07:58 | NUR ---
SPOKE WITH MD REGARDING ABNORMAL LAB, NEW ORDER RECEIVED.
[2019-01-06] MEDS ORDERED: POTASSIUM CHLORIDE 20 MEQ TAB CR PO ONE ×2 (08:00→12:00)
[2019-01-06 08:52] LABS: BAND NEUTROPHILS % (MANUAL) 1 %; LYMPHOCYTES % (MANUAL) 6 % (19-48); MONOCYTES % (MANUAL) 5 % (3.4-9.0); NEUTROPHILS % (MANUAL) 88 % (40-74)
[2019-01-06 09:00] LABS: ANISOCYTOSIS SLIGHT; PLATELET ESTIMATE ADEQUATE; PLATELET MORPHOLOGY COMMENT NORMAL; POIKILOCYTOSIS SLIGHT; RBC MORPHOLOGY COMMENT NORMAL
[2019-01-06] MEDS: MEMANTINE 10 MG TAB PO SCH ×2 (09:00→20:27)
[2019-01-06] MEDS: BACLOFEN 10 MG TAB PO SCH ×3 (09:00→20:27)
[2019-01-06 09:29] LABS: INR 1.03; PARTIAL THROMBOPLASTIN TIME 27.7 seconds (23.8-35.5)
[2019-01-06] MEDS ORDERED: SODIUM CHLORIDE 0.9% 50ML 50 ML ONE (09:54)
[2019-01-06] MEDS ORDERED: LIDOCAINE HCL 1% LOCAL INJ 20 ML VIAL ONE (11:48)
--- NOTE | 2019-01-06 11:50 | NUR ---
PATIENT OFF UNIT TO OR
[2019-01-06] MEDS ORDERED: FENTANYL CITRATE/PF 100MCG/2 ML INJ ONE (11:59)
[2019-01-06] MEDS ORDERED: MIDAZOLAM HCL 2 MG/2 ML VIAL ONE (11:59)
--- NOTE | 2019-01-06 13:40 | NUR ---
PATIENT BACK TO UNIT FROM RADIOLOGY. SMALL AND LARGE TUBES TO RIGHT CHEST WITH DRESSING DRY AND INTACT. DENIED PAIN OR DISCOMFORT. V/S 96.9-60-20-137/78 AND 95% AT 2L VIA N/C. BED IN LOWER POSITION, CALL LIGHT AT REACH. FAMILY AT BEDSIDE.
--- NOTE | 2019-01-06 13:41 | Diagnostic Imaging Report ---
PROCEDURE: CT Guided Chest tube placement Procedural Personnel Attending physician(s): Jitendra Darnell MD Fellow physician(s): None Resident physician(s): None Advanced practice provider(s): None Pre-procedure diagnosis: Right pneumothorax Post-procedure diagnosis: Same Indication: Right pneumothorax with persistent air leak. Additional clinical history: None Complications: No immediate complications. IMPRESSION: Right-sided 8.5 Algerian chest tube placement, yielding 200 mL of air. Plan: Please chest tube to Heimlich valve. PROCEDURE SUMMARY: - Percutaneous pleural drainage with insertion of indwelling catheter under CT guidance - Additional procedure(s): None PROCEDURE DETAILS: Pre-procedure Consent: Informed consent for the procedure including risks, benefits and alternatives was obtained and time-out was performed prior to the procedure. Preparation: The site was prepared and draped using maximal sterile barrier technique including cutaneous antisepsis. Anesthesia/sedation Level of anesthesia/sedation: Moderate sedation (conscious sedation) Anesthesia/sedation administered by: Independent trained observer under attending supervision with continuous monitoring of the patient?s level of consciousness and physiologic status Total intra-service sedation time (minutes): 30 Chest tube placement The patient was positioned supine. Initial imaging was performed. Local anesthesia was administered. The pleural space was accessed using an access needle followed by wire insertion and serial dilation and a drainage catheter was placed. Position of the drainage catheter within the pleural space was confirmed. - Initial imaging findings: Large right pneumothorax - Drainage catheter placed: 8.5 Algerian Londono-Hahn catheter - External catheter securement: Non-absorbable suture - Post-drainage imaging findings: Complete resolution of pneumothorax. - Additional findings: None Contrast Contrast agent: None Contrast volume (mL): [address] dose length product (mGy-cm): 1236.26 Additional Details Additional description of procedure: None Equipment details: None Specimens removed: Aspirated fluid was not sent for analysis. Estimated blood loss (mL): Less than 10 Standardized report: [email or web address] Attestation Signer name: Jitendra Darnell MD I attest that I was present for the entire procedure. I reviewed the stored images and agree with the report as written. Signed by: Jitendra Darnell MD on 01/06/2019 1:37 PM
[2019-01-06] MEDS: ESCITALOPRAM OXALATE 10 MG TAB PO SCH (14:01)
[2019-01-06] MEDS: FOLIC ACID 1 MG TAB PO SCH (14:01)
[2019-01-06 17:09] LABS: ANION GAP 14.1 mmol/L (8-16); BLOOD UREA NITROGEN 11 mg/dL (7-26); BUN/CREATININE RATIO 23 (6-25); CALCIUM 8.1 mg/dL (8.4-10.2); CARBON DIOXIDE 26 mmol/L (22-29); CHLORIDE 97 mmol/L (98-107); CREATININE, SERUM 0.48 mg/dL (0.72-1.25); EST GLOMERULAR FILTRATION RATE > 60 ML/MIN (60-); GLUCOSE 147 mg/dL (74-118); MAGNESIUM 1.6 MG/DL (1.3-2.1); PHOSPHORUS 2.6 MG/DL (2.3-4.7); POTASSIUM 3.1 mmol/L (3.5-5.1); SODIUM 134 mmol/L (136-145)
[2019-01-06] MEDS ORDERED: SODIUM CHLORIDE 0.9% 250ML 250 ML ONE (17:41)
--- NOTE | 2019-01-06 17:55 | Diagnostic Imaging Report ---
EXAMINATION: CHEST XRAY POST PROCEDURE INDICATION: Chest tube Placement COMPARISON: Multiple prior chest radiographs, most recently earlier the same day. FINDINGS: TUBES and LINES: Interval placement of right pigtail pleural drainage catheter and removal of right large bore chest tube. LUNGS: The lungs are moderately inflated. Again seen is a cavitary mass in the right upper lung zone. Otherwise, no focal consolidation. PLEURA: Small residual hydropneumothorax on the right. No left-sided pneumothorax. HEART AND MEDIASTINUM: The cardiomediastinal silhouette is normal in size and contour. Atherosclerotic calcifications involve the thoracic aorta. BONES AND SOFT TISSUES: No acute fracture or dislocation. UPPER ABDOMEN: No free air under the diaphragm. IMPRESSION: Interval placement of right pigtail pleural drainage catheter and removal of large bore chest tube. Small residual right hydropneumothorax. Unchanged right upper lung cavitary mass. Signed by: Jitendra Darnell MD on 01/06/2019 5:52 PM
--- NOTE | 2019-01-06 20:25 | NUR ---
PATIENT IN BED RESTING WITH HEAD OF BED ELEVATED, NO DISTRESS NOTED. RIGHT CHEST TUBE TO SUCTION, DRESSING DRY TO CHEST. NASAL CANNULA INTACT AND PATENT. FAMILY MEMBERS AT BEDSIDE, BOTH SIDE RAILS ARE UP, BED IN LOWEST POSITION, CALL LIGHT AT REACH, WILL CONTINUE TO MONITOR.
[2019-01-06] MEDS: ZOLPIDEM TARTRATE 5 MG TAB PO PRN (22:04)
--- NOTE | 2019-01-06 22:15 | NUR ---
PATIENT REQUESTED SOMETHING FOR SLEEP AND VOICED THAT HE HAS TROUBLE RESTING. PATIENT WAS MEDICATED ORDERED, WILL CONTINUE TO MONITOR.
[2019-01-07] VITALS (8 sets, daily range): BP systolic 125–138; BP diastolic 65–78
--- NOTE | 2019-01-07 00:05 | NUR ---
PATIENT VOICED THAT HE WAS IN PAIN IN THE ABDOMEN AT A RATE OF 7. PATIENT ALSO STATED THAT HE COULD NOT SLEEP DUE TO THE PAIN AND WAS MEDICATED ORDERED. WILL CONTINUE TO MONITOR.
--- NOTE | 2019-01-07 00:40 | NUR ---
PATIENT IS NOW RESTING WITH BOTH EYES CLOSED, NO SIGNS OF DISTRESS NOTED. PATIENT HAS NO COMPLAINTS OF PAIN WELL AND FAMILY MEMBERS ARE PRESENT AT BEDSIDE. BED IS LOCKED IN LOWEST POSITION, CHEST TUBE IS PATENT AND FLOWING, CALL LIGHT WITHIN REACH, WILL CONTINUE TO MONITOR.
[2019-01-07] MEDS: DEXAMETHASONE 4 MG TAB PO SCH ×4 (05:53→23:30)
[2019-01-07] MEDS: CEFTRIAXONE SOD 1 GM/NS 50 ML 50 ML IV SCH ×2 (05:53→17:22)
[2019-01-07 06:22] LABS: BASOPHILS % 0.2 % (0.0-1.0); HEMATOCRIT 31.2 % (38.2-49.6); HEMOGLOBIN 10.9 g/dL (14.0-18.0); LYMPHOCYTES # (AUTO) 0.9 (1.0-3.2); LYMPHOCYTES % 6.6 % (18.0-39.1); MEAN CORPUSCULAR HEMOGLOBIN 32.3 pg (28-32); MEAN CORPUSCULAR HGB CONC 34.9 g/dL (31-35); MEAN CORPUSCULAR VOLUME 92.6 fL (81-99); MONOCYTES # (AUTO) 0.4 (0.2-0.8); MONOCYTES % 2.7 % (4.4-11.3); NEUTROPHILS # (AUTO) 12.1 (2.1-6.9); NEUTROPHILS % 85.3 % (38.7-80.0); PLATELET COUNT 233 x10e3/uL (140-360); RED BLOOD COUNT 3.37 x10e6/uL (4.3-5.7); RED CELL DISTRIBUTION WIDTH 13.9 % (11.7-14.4)
[2019-01-07 06:43] LABS: ANION GAP 12.5 mmol/L (8-16); BLOOD UREA NITROGEN 15 mg/dL (7-26); BUN/CREATININE RATIO 38 (6-25); CALCIUM 7.8 mg/dL (8.4-10.2); CARBON DIOXIDE 26 mmol/L (22-29); CHLORIDE 96 mmol/L (98-107); EST GLOMERULAR FILTRATION RATE > 60 ML/MIN (60-); GLUCOSE 135 mg/dL (74-118); MAGNESIUM 1.7 MG/DL (1.3-2.1); POTASSIUM 3.5 mmol/L (3.5-5.1); SODIUM 131 mmol/L (136-145)
--- NOTE | 2019-01-07 07:24 | Diagnostic Imaging Report ---
EXAM: CHEST SINGLE (PORTABLE), AP Portable DATE: 01/07/2019 Time stamp on exam: 5:31 AM INDICATION: Chest tube evaluation COMPARISON: 01/06/2019 FINDINGS: LINES/TUBES: Small pigtail drainage catheter within the right pleural space again noted. LUNGS: Unchanged upper lobe cavitary lesion. Bibasilar atelectasis. PLEURA: Size of the small residual pneumothorax is slightly increased. HEART AND MEDIASTINUM: Normal size and contour. BONES AND SOFT TISSUES: No acute findings. IMPRESSION: Size of the residual right pneumothorax slightly increased. Signed by: Dr. Sushil Mancuso DO on 01/07/2019 7:20 AM
--- NOTE | 2019-01-07 07:25 | NUR ---
PATIENT IN BED RESTING WITH NO S/S OF RESPIRATORY DISTRESS. RIGHT CHEST TUBE WITH DRESSING DRY AND INTACT; CANISTER WITH 10 CC OF SEROSANGUINEOUS DRAINAGE. SCD IN PLACE. BED IN LOWER POSITION, CALL LIGHT AT REACH. FAMILY AT BED SIDE.
[2019-01-07] MEDS: SUCRALFATE 1 GM TAB PO SCH ×2 (07:50→17:22)
[2019-01-07] MEDS: PANTOPRAZOLE SOD 40 MG TABEC PO SCH (07:50)
--- NOTE | 2019-01-07 09:00 | Progress Note ---
DATE: SUBJECTIVE: The patient is still with a chest tube attached to suction. There is some visible air leak. He is not complaining of pain. He does not have respiratory distress. PHYSICAL EXAMINATION: VITAL SIGNS: The blood pressure is 128/65 and saturation is 95% on 2 L. HEENT: Shows no facial swelling or erythema. CARDIAC: Reveals regular rate and rhythm with normal S1 and S2. LUNGS: Auscultation of lungs reveals decreased breath sounds at the bases. There is no wheezing. ABDOMEN: Soft and nontender. There is no rebound or guarding. IMPRESSION: 1. Persistent right pneumothorax with bronchopleural fistula. 2. Metastatic bronchogenic carcinoma with metastasis. PLAN: 1. Continue pigtail catheter to negative suction for now. 2. CT Surgery to evaluate the patient. 3. Consider discharge home with Heimlich valve. Estevan Butt MD [facility]/JOSE RAULL /[id number]
[2019-01-07] MEDS: BACLOFEN 10 MG TAB PO SCH ×3 (09:10→21:30)
[2019-01-07] MEDS: FOLIC ACID 1 MG TAB PO SCH (09:10)
[2019-01-07] MEDS: ESCITALOPRAM OXALATE 10 MG TAB PO SCH (09:10)
[2019-01-07] MEDS: MEMANTINE 10 MG TAB PO SCH ×2 (09:10→21:30)
--- NOTE | 2019-01-07 10:09 | NUR ---
SPIRITUAL CARE Assessment: Introductory visit. Pt's and daughter at bedside. Intervention: I provided pastoral presence and hospitality. I acquainted pt with availability of technical delivery manager while hospitalized. Outcome: Pt and family expressed appreciation for visit. Will follow as able. WILLIE MAYBERRY Insurance Analyst Spiritual Care Department O: [phone] Pager: [phone] ([phone] number calling from)
[2019-01-07 10:11] LABS: BAND NEUTROPHILS % (MANUAL) 4 %; LYMPHOCYTES % (MANUAL) 12 % (19-48); MONOCYTES % (MANUAL) 5 % (3.4-9.0); NEUTROPHILS % (MANUAL) 79 % (40-74)
[2019-01-07 10:15] LABS: OVALOCYTES FEW; POLYCHROMASIA FEW
[2019-01-07 10:16] LABS: RBC MORPHOLOGY COMMENT ABNORMAL
[2019-01-07 10:17] LABS: ANISOCYTOSIS SLIGHT; PLATELET ESTIMATE ADEQUATE; PLATELET MORPHOLOGY COMMENT NORMAL; POIKILOCYTOSIS MODERATE
--- NOTE | 2019-01-07 11:35 | NUR ---
PATIENT ASSISTED WITH BED BATH, LINENS CHANGED. IN BED RESTING WITH CALL LIGHT AT REACH
--- NOTE | 2019-01-07 15:50 | NUR ---
PT DISCUSSED IN BARRIER ROUNDS; PT HAS COLLAPSED LUNG, IV ABX, CHEST TUBE, PIG TAIL, STILL DRAIN, WE WILL PROVIDE CERTAIN EQUIPMENT, PROVIDED BY NURSING AND ADMINISTRATION, POSSIBLE DISCHARGE WHEN EQUIPMENT DELIVERED ON .
--- NOTE | 2019-01-07 16:04 | NUR ---
PATIENT IN BED WITH HEAD OF BED ELEVATED TALKING TO FAMILY MEMBERS VISITING. CALL LIGHT AT EASY REACH.
--- NOTE | 2019-01-07 18:30 | Diagnostic Imaging Report ---
EXAMINATION: CHEST SINGLE (PORTABLE) INDICATION: ^Pneumonthorax ^[id number] ^[id number] COMPARISON: Chest radiograph 01/07/2019 5:31 PM FINDINGS: AP view TUBES and LINES: Unchanged position of the right pigtail drainage catheter. LUNGS: Lungs are well inflated. Mild worsening of atelectasis in the right lower lobe. Right upper lobe atelectasis is unchanged. Left lung is clear result for minimal atelectasis in the left lower lobe. PLEURA: Stable right lateral pneumothorax with gap measuring 1.5 cm. Trace bilateral pleural effusions. HEART AND MEDIASTINUM: The cardiomediastinal silhouette is unremarkable.. BONES AND SOFT TISSUES: No acute osseous lesion. Small subcutaneous air in the right upper and lower chest wall. UPPER ABDOMEN: No free air under the diaphragm. IMPRESSION: Stable right lateral pneumothorax with yung measuring 1.5 cm. Signed by: Dr. Wilda Ocampo M.D. on 01/07/2019 6:27 PM
--- NOTE | 2019-01-07 20:34 | Consultation ---
DATE OF CONSULTATION: 01/07/2019 REASON FOR CONSULTATION: Right pneumothorax, lung cancer; requested by Dr. Estevan Butt. HISTORY OF PRESENT ILLNESS: I saw and evaluated this patient on January 07, 2019. He is a 58-year-old man with a diagnosis of metastatic bronchogenic carcinoma, who has a chest tube in place for management of pneumothorax. Carcinoma was originally diagnosed about 2 months ago. Biopsy was performed at [facility]. He was subsequently began on radiation therapy for brain metastases and is scheduled for immunotherapy. Apparently, he had a pneumothorax on presentation. A chest tube was placed, but the lung did not reexpand. He subsequently underwent thoracoscopy, pleurodesis, blood pleurodesis, and endobronchial valve placement. The lungs still did not expand completely. A chest tube was placed with a Heimlich valve and he went home. During transport to radiation therapy, the chest tube became dislodged and the pneumothorax increased in size. He came to the emergency room at [facility], was admitted and had another chest tube placed. The lung reexpanded. A percutaneous smaller tube was placed and was hooked up to a Pleur-evac. In order for him to go home, an attempt was made at Heimlich valve placement, but pneumothorax again increased in size. The chest tube is now connected to the Pleur-evac and there was a small air leak. No fevers or chills. No sputum production. The patient is fairly debilitated. No clear history of coronary artery disease. PAST SURGICAL HISTORY: Positive for lung biopsy, pleurodesis, and endobronchial valve placement. PAST MEDICAL HISTORY: Positive for bronchogenic carcinoma, COPD, and gastroesophageal reflux. MEDICATIONS: See MAR. ALLERGIES: NONE KNOWN. SOCIAL HISTORY: Negative for alcohol. He quit smoking. No IV drugs. FAMILY HISTORY: Negative for early carcinoma. REVIEW OF SYSTEMS: GENERAL: Positive for fatigue. NEUROLOGIC: Negative for focal weakness in the extremities or dysarthria. HEENT: Negative for decreased vision or decreased hearing. CARDIAC: Negative for chest pain or palpitations. PULMONARY: Positive for shortness of breath. Negative for wheezing. GI: No constipation or diarrhea. : Negative for hematuria or dysuria. ENDOCRINE: Negative for polyuria or polydipsia. VASCULAR: Negative for claudication. SKIN: Negative for rashes or angioedema. HEMATOLOGIC: Negative for clotting or bleeding. INFECTIOUS: Negative for fevers or sweating. PSYCHIATRIC: Negative for depression or anxiety. PHYSICAL EXAMINATION: GENERAL: Debilitated man, sitting up in bed. and 2 daughters were at the bedside. He has a small chest tube in place anteriorly on the right chest, which is connected to a Pleur-evac. The Pleur-evac is connected to suction and has a small air leak. HEENT: Mucous membranes are moist. Extraocular movements are full. NECK: Supple, nontender. No JVD. CARDIAC: Regular rate and rhythm. Normal S1 and S2. No S3, S4, rub, or murmur. LUNGS: Have scattered wheezing. Breath sounds are full. Chest is nontender. BACK: No CVA tenderness. No muscular spasm. ABDOMEN: Globoid. Good bowel sounds. No hepatosplenomegaly. EXTREMITIES: No cyanosis, clubbing, or edema. VASCULAR: Carotids 2+/2+ bilaterally. Radials and femorals 2+/2+ bilaterally. SKIN: No rashes or nonhealing ulcers. MUSCULOSKELETAL: Full range of motion at all joints. No joint swelling. NEUROLOGIC: Cranial nerves II through XII intact. Sensation intact to light touch and pinprick bilaterally. Strength 5/5 in all extremities. LYMPHATICS: Negative for cervical, clavicular, or femoral adenopathy. LABORATORY DATA: Chest x-ray as above. There is a small pneumothorax. INR 1.03, PT 14.0, PTT 27. White count 14.1, hemoglobin 10.9, hematocrit 31.2, platelet count 233,000. Sodium 131, potassium 3.5, chloride 96, CO2 26, BUN 15, creatinine 0.4. IMPRESSION AND PLAN: Persistent pneumothorax, likely related to his malignancy. I agree with continued chest tube drainage as has been recommended by referring physicians both in the Medical [facility] and here at [facility]. The present chest tube is functioning appropriately. I would favor leaving it in place for now. It is a small caliber tube and may need to be upgraded at some point in the future. I would follow this expectantly. The patient has follow up in the [facility] as well. Thank you very much for asking me to see this nice man. MD GERI Dawson/FABIANA /[id number]
--- NOTE | 2019-01-07 20:59 | Consultation ---
DATE OF CONSULTATION: REASON FOR EVALUATION: Pneumothorax and lung cancer; question by Dr. Estevan Butt. HISTORY OF PRESENT ILLNESS: I saw and evaluated this patient on January 07, 2019. He is a 58-year-old man, who has metastatic bronchogenic carcinoma. This was biopsied about 6 weeks ago. The biopsy was performed at [facility] in the [facility]. He was subsequently started on radiation therapy for brain metastasis and is awaiting the initiation of immunotherapy. He had a pneumothorax on presentation. A chest tube was placed. The lung did not expand completely. He had subsequent pleurodesis, endobronchial valves, and chest tubes. He eventually went home with a larger-bore chest tube and a Heimlich valve. During transportation to radiation therapy, the tube came out. He came to the emergency room with an increased right pneumothorax. Chest tube was placed. Since that time, a percutaneous tube has been placed and has hooked up to a Pleur-evac. Today, at the bedside, the Pleur-evac has good respiratory variation and a small air leak. The patient is breathing comfortably. Surgical opinion concerning management of the chest tube is requested. No fevers or chills. The patient is currently breathing comfortably. PAST SURGICAL HISTORY: Positive for lung biopsy, pleurodesis, and endobronchial valve. Endobronchial valves replaced at [facility] in the [facility]. PAST MEDICAL HISTORY: Positive for bronchogenic carcinoma with brain metastasis. Positive for COPD and gastroesophageal reflux. SOCIAL HISTORY: The patient stopped smoking. No alcohol. ALLERGIES: NONE KNOWN. FAMILY HISTORY: Negative for coronary artery disease. Negative for other family members with lung carcinoma. MEDICATIONS: See MAR. REVIEW OF SYSTEMS: GENERAL: Positive for fatigue. NEUROLOGIC: Negative for focal weakness in extremities or dysarthria. HEENT: Negative for decreased vision or decreased hearing. CARDIAC: Negative for chest pain or palpitations. PULMONARY: Positive for shortness of breath. Negative for wheezing. GI: No constipation or diarrhea. : Negative for hematuria or dysuria. ENDOCRINE: Negative for polyuria or polydipsia. VASCULAR: Negative for claudication. SKIN: Negative for rashes or angioedema. HEMATOLOGIC: Negative for clotting or bleeding. INFECTIOUS: Negative for fevers or sweating. PSYCHIATRIC: Negative for depression or anxiety. PHYSICAL EXAMINATION: GENERAL: Debilitated man, sitting up in bed. and two daughters are at the bedside. He has a small chest tube in place in the right anterior chest. This is a percutaneously placed tube. It is hooked up to a Pleur-evac that has a small air leak. HEENT: Extraocular motion is full. Mucous membranes moist. NECK: Supple and nontender. No JVD. CARDIAC: Shows a regular rate and rhythm. There is a normal S1 and S2. There is no S3, S4, rub, or murmur. LUNGS: Scattered wheezes. Breast sounds are full on both sides. Chest is nontender. BACK: No CVA tenderness. No muscular spasm. ABDOMEN: Globoid, benign. Good bowel sounds. No hepatosplenomegaly. EXTREMITIES: No cyanosis, clubbing, or edema. VASCULAR: Carotids 2+/2+ bilaterally. No carotid bruits. Radials and femorals 2+/2+ bilaterally. SKIN: No rashes or nonhealing ulcers. MUSCULOSKELETAL: Full range of motion at all joints. No joint swelling. NEUROLOGIC: Cranial nerves II through XII intact. Sensation is intact to light touch and pinprick bilaterally. Strength is 5/5 in all extremities. LYMPHATICS: Negative for cervical, clavicular, or femoral adenopathy. LABORATORY DATA: White count is 14.1, hemoglobin 10.9, hematocrit 31.2, and platelet count 233,000. Sodium 131, potassium 3.5, BUN 15, and creatinine 0.4. LFTs are normal. INR 1.03. Chest x-ray shows pigtail catheter within the right pleural space and is unchanged. There is a small residual pneumothorax on the right, but this is not marked. IMPRESSION: I agree with the management of the pleural tube. Presently this is patent. I had a long discussion with the family. The tube may need upgrading at some point, but since it is functioning appropriately at the present time, I would suggest leaving it in place. They have an appointment to see Dr. Guaman of Thoracic Surgery after they discharged. If necessary, the tube can be upsized at that point. I agree with placement of the small portable Pleur-evac, which has been ordered. Heimlich valve led to increase size of pneumothorax by history in this case. We will follow. Thank you much for asking me to see this nice patient. MD GERI Dawson/JOSE RAULL /[id number]
--- NOTE | 2019-01-07 21:30 | NUR ---
PATIENT IS NOW RESTING WITH BOTH EYES CLOSED, NO SIGNS OF RESPIRATORY DISTRESS NOTED. PATIENT HAS NO COMPLAINTS OF PAIN WELL AND FAMILY MEMBERS ARE PRESENT AT BEDSIDE. NASAL CANNULA INTACT AND FLOWING, BED IS LOCKED IN LOWEST POSITION, CALL LIGHT WITHIN REACH, WILL CONTINUE TO MONITOR.
[2019-01-07] MEDS: ZOLPIDEM TARTRATE 5 MG TAB PO PRN (22:35)
[2019-01-08] VITALS: BP 139/84
--- NOTE | 2019-01-08 02:35 | NUR ---
PATIENT RESTING BOTH EYES CLOSED, FAMILY MEMBERS PRESENT. NO RESPIRATORY DISTRESS NOTED AND NASAL CANNULA IN PLACE. BOTH SIDE RAILS ARE UP, BED IN LOWEST POSITION, CALL LIGHT WITHIN EASY REACH, CONTINUING TO MONITOR.
[2019-01-08 04:00] VITALS: BP 153/76
[2019-01-08] MEDS: CEFTRIAXONE SOD 1 GM/NS 50 ML 50 ML IV SCH ×2 (04:40→17:47)
--- NOTE | 2019-01-08 05:08 | NUR ---
PATIENT IN STABLE CONDITION, NO RESPIRATORY DISTRESS NOTED. CHEST TUBE IS FLOWING AND PATENT AND NASAL CANNULA IS INTACT. FAMILY MEMBERS AT BEDSIDE, CALL LIGHT WITHIN REACH, WILL CONTINUE TO MONITOR.
[2019-01-08] MEDS: DEXAMETHASONE 4 MG TAB PO SCH ×3 (05:13→17:47)
[2019-01-08] MEDS: ESCITALOPRAM OXALATE 10 MG TAB PO SCH (08:05)
[2019-01-08] MEDS: SUCRALFATE 1 GM TAB PO SCH ×2 (08:05→17:47)
[2019-01-08] MEDS: PANTOPRAZOLE SOD 40 MG TABEC PO SCH (08:05)
[2019-01-08] MEDS: FOLIC ACID 1 MG TAB PO SCH (08:05)
[2019-01-08] MEDS: BACLOFEN 10 MG TAB PO SCH ×2 (08:06→15:15)
[2019-01-08] MEDS: MEMANTINE 10 MG TAB PO SCH (08:06)
[2019-01-08 08:34] VITALS: BP 129/75
--- NOTE | 2019-01-08 10:40 | NUR ---
patient resting in bed, chest tube incision site pressure dressing is intact, denies any pain, not in any resp distress, family at bed side
[2019-01-08 12:25] VITALS: BP 140/78
[2019-01-08 13:04] VITALS: BP 140/78
--- NOTE | 2019-01-08 14:37 | Progress Note ---
DATE: SUBJECTIVE: Chest tube was placed to water seal yesterday. Repeat chest x-ray shows only a small change of the pneumothorax. PHYSICAL EXAMINATION: VITAL SIGNS: The patient is afebrile. Vital signs are stable. HEENT: Shows no facial swelling or erythema. CARDIAC: Reveals regular rate and rhythm with normal S1, S2. There are no murmurs or rubs. LUNGS: Auscultation of lungs reveals decreased breath sounds at the bases. ABDOMEN: Soft, nontender. IMPRESSION: 1. Persistent pneumothorax. 2. Metastatic bronchogenic carcinoma with brain metastases. PLAN: 1. The patient will go home today with a chest tube and the Heimlich valve. Chest tube was attached to the portable Pleur-evac. 2. He is scheduled to follow up tomorrow with Radiation Therapy at [facility]. 3. He is scheduled to follow up with Dr. Guaman of thoracic surgery. Estevan Butt MD [facility]/FABIANA /[id number]
--- NOTE | 2019-01-08 15:02 | Diagnostic Imaging Report ---
EXAMINATION: CHEST SINGLE (PORTABLE) INDICATION: Pneumothorax COMPARISON: Multiple prior chest x-rays, most recently of 01/07/2019 FINDINGS: TUBES and LINES: Again seen is a pleural pigtail drainage catheter on the right. Compared to the prior radiograph of 01/07/2019, it appears a safe the drainage catheter has been pulled back several centimeters. LUNGS: The lungs are moderately inflated. Unchanged cavitary mass in the right upper lung zone. PLEURA: Interval increase in maximum width of right pneumothorax, now measuring 2.2 cm compared to 1.5 cm previously. HEART AND MEDIASTINUM: The cardiomediastinal silhouette is unchanged in size and contour. BONES AND SOFT TISSUES: No acute fracture or dislocation. UPPER ABDOMEN: No free air under the diaphragm. IMPRESSION: Interval increase in right pneumothorax, now measuring 2.2 cm compared to 1.5 cm previously the right pleural pigtail drainage catheter appears to have been pulled back several centimeters. Otherwise, no significant interval change. RECOMMENDATIONS: If the right pleural pigtail drainage catheter is still connected to the Heimlich valve, recommend connecting the free end of the Heimlich valve to negative pressure. Signed by: Jitendra Darnell MD on 01/08/2019 2:58 PM
[2019-01-08 16:09] VITALS: BP 126/71
--- NOTE | 2019-01-08 17:25 | NUR ---
CNO here in the room changed the chest tube with portable one (Heimlich), patient tolerated well, Educated family regarding chest tube care and family verbalized understanding, old dressing changed, Patient denies any chest pain or SOB, NO Distress noted. d
--- NOTE | 2019-01-08 18:33 | NUR ---
patient discharged home, Alert with no distress, chest tube site is intact, denies any SOB, no distress noted, IV canula removed with tip intact, no ss of infiltration noted, family at bed side to pick patient,
--- NOTE | 2019-01-09 03:45 | Discharge Summary ---
PRIMARY CARE PHYSICIAN: Preston Tejada MD CONSULTANTS: 1. Dr. Anuj Benton. 2. Dr. Estevan Butt. FINAL DIAGNOSES: 1. Metastatic lung cancer to the brain, undergoing brain radiation for palliative care. 2. Right chest tube accidentally dislodged, now replaced, stable. 3. Right upper lobe cancer consolidation as previously diagnosed. SUMMARY: The patient is a 58-year-old male recently discharged from the hospital. The patient had multiple problems, but more importantly, he has lung cancer with metastasis to the brain. The patient at the [facility] had lung biopsy to the right and then subsequently nonhealing. The patient had a pleurodesis and also bronchial cap and then subsequently chest tube in place is PleurX and then it was dislodged. The patient came in and the chest tube has been replaced. The patient is stable now. Once the chest tube is functional. The patient will go home. Follow up with his thoracic and oncology team as an outpatient. Discussed with the patient's spouse at length. The patient is on Decadron, reason for leukocytosis. No sign of infection, but the patient did receive empiric treatment with Rocephin. The patient is otherwise stable. He is comfortable. Very well supported family to the patient care. The patient will go home today after functional chest tube is established. The patient to follow up as instructed. MD Apollo UriasT/MODL /[id number]
== END 2019-01-08 18:30 | disposition home or self-care (01) | DRG 919 ==
LOC: ER 13:33 → ERHOLD 16:18 → MED/SURG3 18:07
PROVIDERS: ADMIT Internal Medicine; ATTEND Internal Medicine
PROC: 0W9930Z Drainage of Right Pleural Cavity with Drainage Device, Percutaneous Approach (ICD-10-PCS; principal; 2019-01-03)
PROC: 0W9930Z Drainage of Right Pleural Cavity with Drainage Device, Percutaneous Approach (ICD-10-PCS; 2019-01-06)
DX: T85.698A Other mechanical complication of other specified internal prosthetic devices, implants and grafts, initial encounter (principal); J18.9 Pneumonia, unspecified organism; J86.0 Pyothorax with fistula; E87.0 Hyperosmolality and hypernatremia; C34.2 Malignant neoplasm of middle lobe, bronchus or lung; C79.31 Secondary malignant neoplasm of brain; Z68.1 Body mass index [BMI] 19.9 or less, adult; E44.0 Moderate protein-calorie malnutrition; E87.6 Hypokalemia; F41.9 Anxiety disorder, unspecified; Z83.3 Family history of diabetes mellitus; Z82.49 Family history of ischemic heart disease and other diseases of the circulatory system; Z87.891 Personal history of nicotine dependence; R53.81 Other malaise; D72.829 Elevated white blood cell count, unspecified
CPT/HCPCS: 32551; 32557; 36415; 71045; 71046; 74470; 80048; 80053; 83735; 84100; 85025; 85610; 85730; 96367; 96374; 96376; 99152; 99153; 99285; C1769; J0696; J1170; J2001; J2250; J2270; J2405; J3010; J7030; J7050